=== PATIENT | male | born 1940 | race Caucasian/White ===

== ENCOUNTER 2023-07-26 15:42 | Inpatient (IN) | payer OTHER, SELFPAY ==
[2023-07-26] VITALS (23 sets, daily range): BP systolic 103–195; BP diastolic 50–89; BMI 22.7
--- NOTE | 2023-07-26 09:28 | W.PN.CARDCBS ---
Today's Communication / Plan
-
[facility] today
Impression / Plan
-
PCP: Stephen Tinoco MD
CDY: Angelo Bush MD
82 y/o, PMH sig for CAD w/prior LCx PCI (2008) and more recently Left PLB and RCA PCI/RASHEEDA x2 in October 2017, new PAF 03/2023, HTN, HLD, hypothyroidism, pulmonary fibrosis/COPD and longstanding tobacco abuse (currently 1/2ppd). At the time of PAF
diagnosis, he had been on asa/plavix which was then stopped for new start Eliquis. Recent echo 03/2023 with preserved LVSF, EF 60%, no WMA, mildly dilated LA, mild MR w/mod-sev MAC.
Pt woke Mon 07/24 in in the early hours to let the dog out and developed SSCP, no relief from SL NTG so EMS was called. He admits to a few weeks history of exertional chest pain while walking up steps at home as well as AYOUB. Brought to [facility] [place]-
hypertensive 190s, EKG SB w/PACs but no acute changes. HS troponin up to 125 and rising. Started on IV heparin and transferred for [facility] today.
IMPRESSION/PLAN:
CAD, Prior MD, LCx PCI (2008), Left PLB, RCA PCI/RASHEEDA x2 (10/2017)
Known occluded LAD with collaterals
NSTEMI
HS trop 125- repeat on arrival with CK
[facility] today
Anticipate short term triple therapy if PCI needed with asa/plavix/eliquis
continue lisinopril 5mg/daily, metoprolol xl 25/daily
echo in AM if not done at [facility] [place]
cardiac rehab
followup with Dr. Bush
PAF- newly diagnosed 03/2023
[id number], maintained on eliquis
resume post procedure when stable
HTN- continue metoprolol, lisinopril
monitor trends
HLD- check lipid profile in AM
continue crestor 40/d
Pulmonary Fibrosis/COPD-
currently on nocturnal O2- 2LNC, sometimes uses it during the day
managed per pulmonary- pt unsure of name of specialist
Tobacco abuse- must quit- cessation encouraged- will continue nicoderm.
Hypothyroidism- stable, continue levothyroxine
Left Carotid bruit- due for carotid u/s, managed per primary card
Progress Note - Child & Adolescent Psychiatrist
Subjective
Date of Service: July 26, 2023
Physical Exam
Physical Exam
AAOx3, MAEE 08/27
RRR S1 S2, distant HS, no murmurs
Decreased bibasilar, scattered rhonchi clears with cough, mild dyspnea at rest
soft abd, + bs
bilat extremities w/palpable distal pulses, no edema
[2023-07-26] MEDS: LOW STRENGTH ASPIRIN 243 MG PO (14:35)
[2023-07-26 14:45] LABS: Troponin I 0.344 ng/ml
--- NOTE | 2023-07-26 15:55 | ITS.CL.CATH ---
Craps Manager - Catheterization
Cardiac Catheterization
Procedure Report:
CARDIAC CATHETERIZATION REPORT
Date of Procedure: 07/26/2023
Referring: Guanako Jones DO
Indication: ACS/non-STEMI
HEMODYNAMIC DATA
AO: 181/74
LV: 181/17
LEFT VENTRICULOGRAPHY: Hyperdynamic left ventricular wall motion with EF 68%
CORONARY ANGIOGRAPHY
Dominance: Right
Left Main: Mild calcification without focal stenosis
LAD: The LAD is proximally occluded. There is left to left collateral retrograde filling from the apex up through the mid LAD. This is chronic and noted on prior catheterization at [facility] from 2018. There is a huge high rising
first diagonal branch which has a long patent bare metal (Du jimmie) stent in its proximal segment. This stent does not extend back to the LMCA.
Circumflex: There is a small ramus intermedius branch. There is a severe ostial circumflex stenosis and cannot exclude the possibility of associated thrombus although flow in the left circumflex is brisk suggesting the absence of thrombus. There
is 40% stenosis in the proximal circumflex spanning the takeoff of the medium sized OM1-the remotely placed stent at this segment appears slightly underexpanded. The remainder of the stented segment in the mid circumflex remains widely patent. OM
2 and OM 3 are small. There is another widely patent stent in the distal circumflex extending into the large low-lying OM 4.
RCA: 30% proximal RCA stenosis with a widely patent mid RCA stent and a widely patent distal RCA stent. The PDA and two medium sized posterolateral branches have mild luminal disease.
Closure Device: None-the procedure was performed via the right radial artery. The Jordan's test was normal prior to the procedure.
Radiation (mGy): 463
DAP (cm2.Gy): 39.8
Fluoroscopy time: 3.3 minutes
CONCLUSIONS
1: ACS/non-STEMI presentation (most recent troponin 0.337)
2: Systemic hypertension
3. Hyperdynamic left ventricular wall motion with EF 68%
4. Severe multivessel CAD as described. There is chronic occlusion of the LAD. There is what I suspect is new high-grade disease at the origin of the circumflex possibly associated with thrombus. This patient is not a candidate in my view for
elective or emergent cardiac surgery given his extensive comorbidities most important of which include oxygen dependent COPD/pulmonary fibrosis. I have reviewed the angiogram and the situation with Dr. Frederick of CT surgery who agrees. I think
his best option is stenting of the ostial LAD lesion. This will be a high risk procedure with no surgical backup. We will load with Brilinta (if affordable) or Plavix and proceed with PCI tomorrow.
Copy to: Angelo Bush MD (outpt sewer pipe offbearer), Gisela Garces MD(outpt primary physician)
Jace Bryant MD, [facility]
[2023-07-26 16:10] LABS: Total CK 77 U/L (55-170)
--- NOTE | 2023-07-26 16:10 | CM ---
Pricing on Brilinta 90 mg BID through patient's [facility] [facility], ID#[id number], $47 a month. I called patients [facility] and it is in stock
[2023-07-26] MEDS: NSS 1000 IV (17:30)
[2023-07-26] MEDS: CRESTOR 40 MG PO (17:30)
[2023-07-26] MEDS: BRILINTA 180 MG PO (17:30)
[2023-07-26] MEDS: NITRO-BID 0.5 INCH TOPICAL ×2 (18:08→23:33)
--- NOTE | 2023-07-26 18:18 | PTCARENOTE ---
Rec'd report from Kelly in the kiln labourer; Rec'd pt AAOx3 w/no c/o CP or SOB. Pt w/R radial band in place w/no signs or symptoms of bleeding or hematoma. VS stable. SpO2 on 2L O2 via NC 97% taken on pt's R hand where R band is present. Pt's son and
spouse at bedside. Pt w/NSS IV fluids infusing through patent R AC IV line. Admission assessment completed. Pt w/call almaraz in reach & no addtl needs at this time. Plan of care ongoing.
[2023-07-26] MEDS: LOPRESSOR 12.5 MG PO (20:18)
[2023-07-26 20:45] LABS: Hemoglobin 14.2 g/dL (13.0-18.0); Mean Corp Hgb Conc. 32.3 g/dL (33.0-37.0); Mean Corpuscular Hgb 31.6 pg (27.0-31.0); Mean Platelet Volume 10.8 fL (7.4-10.4); Platelet Count 157 10^3/uL (130-400); Red Blood Cell Count 4.49 10^6/uL (4.70-6.10); Red Cell Dist. Width 13.2 % (11.5-14.5); White Blood Cell Count 6.7 10^3/uL (4.8-10.8)
[2023-07-26 20:55] LABS: APTT 27.3 Sec (23.4-35.0)
[2023-07-26 21:00] LABS: Total CK 92 U/L (55-170)
[2023-07-26] MEDS: HEPARIN 25000 UNITS/250 ML IV (21:02)
[2023-07-26 21:13] LABS: Troponin I 0.309 ng/ml
--- NOTE | 2023-07-26 21:20 | PTCARENOTE ---
Assumed care of patient at change. Right radial TR band removed at approx 20:10 w/out difficulty. Dry dressing applied, and education provided on activity restrictions. Patient requires multiple reminders to avoid putting pressure on right wrist. No
hematoma noted at this time, and radial pulse positive. Patient AAOx3, GAKONA, and tele monitor shows SR-Sinus calvin. HR in the 50-60's at rest. Patient denies any chest pain, but does report 'it's hard to catch my breath'. Patient sating 96-99% on 2L.
Patient states he normally wears O2 at HS. Lungs decreased in the bases. Patient appears AYOUB and has a freq moist CYBER SYSTEMS ENGINEER cough. Instructed patient to perform deep breathing exercises. Patient requires standby assist w/ ambulation. Aware of POC,and to
remain NPO after midnight. IV Heparin gtt started at approx 21:00 and infusing at 9ml/hr. Call almaraz in reach.
[2023-07-26 21:21] LABS: CKMB 4.1 ng/ml (0.0-2.4)
[2023-07-27] VITALS (13 sets, daily range): BP systolic 129–154; BP diastolic 61–119; BMI 22.4
[2023-07-27 03:29] LABS: Hematocrit 41.4 % (39.0-52.0); Hemoglobin 13.3 g/dL (13.0-18.0); Mean Corp Hgb Conc. 32.1 g/dL (33.0-37.0); Mean Corpuscular Hgb 31.1 pg (27.0-31.0); Mean Platelet Volume 10.5 fL (7.4-10.4); Platelet Count 160 10^3/uL (130-400); Red Blood Cell Count 4.27 10^6/uL (4.70-6.10); Red Cell Dist. Width 13.2 % (11.5-14.5); White Blood Cell Count 7.5 10^3/uL (4.8-10.8)
[2023-07-27 03:36] LABS: APTT 36.5 Sec (23.4-35.0)
[2023-07-27 03:54] LABS: Troponin I 0.312 ng/ml
[2023-07-27 04:04] LABS: Blood Urea Nitrogen 21 mg/dl (9-20); Calcium 8.9 mg/dl (8.4-10.2); Carbon Dioxide 28 mmol/L (22-30); Chloride 106 mmol/L (98-107); Estimated Creatinine Clearance 76 ml/min; Glucose 91 mg/dl (70-99); HDL Cholesterol 58 mg/dl; LDL Cholesterol, Calculated 36 mg/dl; Potassium 4.3 mmol/L (3.5-5.1); Sodium 138 mmol/L (135-145); Total CK 94 U/L (55-170); Total Cholesterol 107 mg/dl (50-199); Triglyceride 69 mg/dl (10-149); Very Low Density Lipoprotein 13 mg/dl (0-30); eGFR > 60.00
[2023-07-27 04:28] LABS: CKMB 3.4 ng/ml (0.0-2.4)
[2023-07-27] MEDS: SYNTHROID 137 MCG PO (06:10)
[2023-07-27] MEDS: NITRO-BID 0.5 INCH TOPICAL (06:10)
[2023-07-27] MEDS: LOPRESSOR 12.5 MG PO ×2 (09:27→19:34)
[2023-07-27] MEDS: ZETIA 10 MG PO (09:27)
[2023-07-27] MEDS: LOW STRENGTH ASPIRIN 81 MG PO (09:27)
[2023-07-27] MEDS: ZESTRIL 5 MG PO (09:27)
[2023-07-27] MEDS: BRILINTA 90 MG PO (09:29)
--- NOTE | 2023-07-27 09:39 | PTCARENOTE ---
Rec'd pt AAOx3 from prev nsg shift. No c/o CP overnight or this AM. Pt w/Heparin IV drip infusing through patent L AC IV line. Pt w/nitro bid topical in place to RUE. Pt's R radial access site from yesterday w/dressing C/D/I-no signs or symptoms of
bleeding or hematoma. Pt's VS stable. Report given to Arnulfo in electronic lab technician for repeat PCI this AM. Pt voided and is in bed awaiting sweet pickle maker for procedure. Plan of care ongoing.
[2023-07-27 10:40] LABS: APTT 45.5 Sec (23.4-35.0)
[2023-07-27 11:44] LABS: ACT-LR - POC 331 Seconds (116-155)
[2023-07-27 11:46] LABS: ACT-LR - POC > 397 Seconds (116-155)
[2023-07-27 12:08] LABS: ACT-LR - POC 329 Seconds (116-155)
--- NOTE | 2023-07-27 12:29 | ITS.CL.ANGIO ---
Addendum entered and electronically signed by Jace Bryant MD 07/28/23 06:58:
Send copy of report to Gisela Garces MD
Original Note:
Construction Manager - Angioplasty
Angioplasty
Procedure Report:
CARDIAC CATHETERIZATION REPORT
Date of Procedure: 07/27/2023
Referring: Jace Bryant M.D.
INDICATION: Non-ST elevation myocardial infarction, ostial circumflex stenosis, no surgical options.
PROCEDURE:
1. Left coronary tree angiography.
2. Intravascular ultrasound.
3. Successful orbital atherectomy of the ostial circumflex.
4. Successful PCI of the circumflex into the left main coronary artery.
ACCESS:
7 Australian slender sheath in the right radial artery.
CATHETERS:
1. 7 Australian EBU 3.5 guiding catheter.
HEMODYNAMIC DATA
Weight (kg): 74.8
AO (s/d/x, mmHg): 125/70/92
LV (s/x mmHg): Not obtained.
LEFT VENTRICULOGRAPHY: Not performed.
CORONARY ANGIOGRAPHY
Dominance: Right.
Left Main: Normal size, trifurcating vessel. There are minor luminal irregularities.
LAD: Normal size vessel giving rise to 1 significant proximal diagonal. The proximal LAD is chronically totally occluded immediately after the origin of the diagonal. The ostial LAD leading into the diagonal is calcified and at least moderately
diseased. Patent stents are present in the proximal and mid diagonal.
Ramus: Small size vessel. There is no significant coronary disease in this minuscule vessel.
Circumflex: Large size, nondominant vessel giving rise to 2 significant marginals before terminating as a tiny left posterolateral branch. Patent stents are visible in the mid vessel into the distal vessel and second obtuse marginal. There is a
critical, densely calcified, 90% ostial circumflex lesion. There is a 60-70% lesion in the pLCx immediately proximal to the OM1 and the first LCx stent.
RCA: Not injected. Known to be a large size, dominant vessel with a significant posterolateral arcade. There is a 30% lesion in the proximal circumflex. There are patent stents in the mid vessel and proximal RPL.
INTERVENTION(S)
1. Successful intravascular ultrasound of the proximal LAD and left main coronary artery.
2. Successful orbital atherectomy of the ostial circumflex.
3. Successful IVUS guided PCI of the proximal circumflex and ostial circumflex lesions back into the left main coronary artery (Medtronic Bonnie Niobrara 3.5 x 30 RASHEEDA, postdilated with a 4.0 NC balloon throughout and a 4.5 NC balloon in the left main
coronary artery).
Narrative:
The decision was made to perform intracoronary imaging prior to intervention. The 7 Australian EBU 3.5 guiding catheter was advanced into the ascending aorta and seated in the left main coronary artery. A power turn flex wire was advanced into the
left circumflex. A BMW wire was advanced into the LAD then the diagonal. Additional heparin was given to obtain an ACT greater than 250 seconds. After crossing the lesion with a coronary wire, an IVUS catheter was advanced through the guiding
catheter and into the ostium of the artery. Ring down was performed once the imaging crystal was no longer inside of the guiding catheter. The IVUS catheter was advanced along the power turn flex wire into the left main. The catheter would not
progress into the left circumflex artery. We decided to image over the BMW wire into the diagonal and left main. This demonstrated significant, calcific atherosclerotic disease in the proximal LAD with dense calcium in the distal left main.
Given the severity of calcification and inability to pass an IVUS catheter into the circumflex, the decision was made to proceed with plaque modification and atherectomy. The Viper wire was advanced into the left circumflex without difficulty. The
power turn and BMW wires were removed. The CSI orbital atherectomy device was prepped on the back table and flushed with Viper slide. The device was loaded onto the Viper wire and brought up to the level of the catheter. An out of body test was
successful. The CSI device was advanced over the Viper wire up to the level of the coronary artery. Once the crown was positioned in place, orbital atherectomy was performed in the standard fashion with slow smooth passes. After each pass, the
patient was given nitroglycerin 100 mcg intracoronary. Brief angiography was performed to rule out dissection and perforation. The process was repeated for a total of 4 times. Ultimately, the crown passed through the densely calcified lesion
smoothly. The CSI device was withdrawn over the Viper wire.
The Power Turn Flex wire was advanced into the distal circumflex. The BMW wire was readvanced into the diagonal for protection. The Viper wire was removed. The calcified, 90% ostial circumflex lesion was predilated with a 3.0 x 15 noncompliant
balloon to 12 cyndi with good release. The 3.0 noncompliant balloon was withdrawn and a 3.5 x 15 noncompliant balloon was advanced. The lesion was predilated again to 12 cyndi. The noncompliant balloon was removed and a Medtronic Bonnie Niobrara 3.5 x
30 drug-eluting stent was advanced. Meticulous care was taken while positioning the stent, ensuring that both the ostial circumflex and proximal circumflex lesions would be covered and that the stent would extend into the left main at an
appropriate angle. The stent was deployed at 12 atmospheres. The stent balloon was removed. A new 3.5 x 12 noncompliant balloon was advanced into the stent and the stent was postdilated to 14 atmospheres in the distal margin and 16 cyndi in the
proximal margin including the left main. The prior IVUS film was reviewed for appropriate post dilation balloon sizing. The 3.5 x 12 noncompliant balloon was withdrawn and a 4.5 x 8 noncompliant balloon was advanced. The ostial circumflex and
left main portions of the stented segment were postdilated to 14 cyndi.
IVUS was repeated showing good stent apposition throughout the entire stented segment with some minor underexpansion in the proximal/ostial circumflex. The IVUS catheter was withdrawn and a 4.0 x 12 noncompliant balloon was advanced. The entire
circumflex section of the stent was postdilated to 14 cyndi. The ostial margin was postdilated to 20 cyndi. The noncompliant balloon was withdrawn.
Angiography was performed in orthogonal views, confirming good stent expansion and an excellent angiographic result. The power turn flex wire was withdrawn and redirected into the diagonal through the left main coronary artery stent struts with
only moderate difficulty. The BMW wire was withdrawn from the LAD and from behind the left main stent struts and redirected into the circumflex, demonstrating that both vessels were accessible percutaneously. The coronary wire was withdrawn and
the guide was disengaged from the artery. The catheter was removed over a standard J-wire.
Closure Device: Vascular band.
Radiation (mGy): 1542.16
DAP (cm2.Gy): 97.4466
Fluoroscopy time (minutes): 20.7
Sedation time (minutes): 93
CONCLUSIONS
1. Right dominant circulation with multiple prior PCI's in the mid RCA, RPL, mid/distal circumflex and large first diagonal, CIGAR BANDER HAND of the proximal LAD after the origin of the large diagonal, a 60-70% lesion in the proximal circumflex immediately
before the origin of OM1 and a densely calcified, 90% ostial circumflex lesion, now status post successful orbital atherectomy and IVUS guided PCI of both circumflex lesions into the left main coronary artery (Medtronic Bonnie Niobrara 3.5 x 38 RASHEEDA,
postdilated with a 4.0 NC balloon throughout and a 4.5 NC balloon in the left main coronary artery) with reduction in both stenoses to 0%, maintaining ZACH-3 flow in the circumflex as well as in the jailed large diagonal.
RECOMMENDATIONS:
1. Expectant management after cardiac catheterization via right radial approach.
2. Limited weight bearing on the right wrist for one week.
3. Convert from ticagrelor to clopidogrel tomorrow morning.
4. Triple therapy with aspirin, apixaban and clopidogrel for 1 month, followed by discontinuation of aspirin.
5. Guideline directed medical therapy as hemodynamics will tolerate.
Copy to: Angelo Bush M.D.
Guanako Benites DO, FACC, FACP
--- NOTE | 2023-07-27 13:08 | CM ---
Reviewed chart. Met with MrPatti and Mrs. Costa and son to review discharge plans. He states prior to admission he resides with his spouse in a two story home. He states he has eleven steps to get to his bedroom/full bathroom. He states he has a
powder room on the first floor. He states prior to admission he was independent with ambulation and adls. He states he has a prescription plan and [a]list games-[employer]. Telephone call to [employer] ([phone]) His co-pay for Brilinta 90 mg po bid would be
$15.00 a month. His Eliquis 5 mg po bid would also be $15.00 a month. Placed the one month free coupon for Brilinta in his red discharge folder. Medical work-up in progress. The discharge plan is to return home with his spouse when medically
stable.
[2023-07-27] MEDS: NITRO-BID TOPICAL (13:14)
--- NOTE | 2023-07-27 13:29 | PTCARENOTE ---
Rec'd report from Kelly in the chemical laboratory chief at 1245. Pt rec'd back in his rm at 1255. Pt w/ R radial band intact w/no signs or symptoms of bleeding or hematoma. SpO2 92% on RA & pt appears dyspneic at rest so O2 2L via NC applied for comfort. O2 Sat
improved to 96%. Pt w/spouse & son at bedside. This RN reiterated activity restrictions & plan of bo w/pt & family. Pt w/call almaraz within reach & plan of care ongoing.
[2023-07-27] MEDS: CRESTOR 40 MG PO (18:22)
[2023-07-27] MEDS: ELIQUIS 5 MG PO (19:34)
[2023-07-27] MEDS: SYMBICORT 160/4.5 MCG INHALER 2 PUFF INH (19:58)
--- NOTE | 2023-07-27 21:12 | PTCARENOTE ---
Asuumed care at 1900. Patient AO x3, right radial dressing dry and intact. A-fib on tele initially at the start of my shift but now is SB with 2 second pauses HR 50-60's. Patient sleeping easily arousable, 2 liters NC, POX 98-99%. Urinal and call
almaraz in reach
--- NOTE | 2023-07-27 22:09 | PTCARENOTE ---
EKG completed and placed on chart.
[2023-07-28 03:30] VITALS: BP 143/55
[2023-07-28 04:31] LABS: Hematocrit 40.6 % (39.0-52.0); Hemoglobin 13.4 g/dL (13.0-18.0); Mean Corpuscular Hgb 31.3 pg (27.0-31.0); Mean Corpuscular Volume 94.9 fL (80.0-94.0); Mean Platelet Volume 11.3 fL (7.4-10.4); Platelet Count 166 10^3/uL (130-400); Red Blood Cell Count 4.28 10^6/uL (4.70-6.10); Red Cell Dist. Width 13.1 % (11.5-14.5); White Blood Cell Count 7.7 10^3/uL (4.8-10.8)
[2023-07-28 04:49] LABS: Blood Urea Nitrogen 25 mg/dl (9-20); Carbon Dioxide 28 mmol/L (22-30); Chloride 103 mmol/L (98-107); Estimated Creatinine Clearance 76 ml/min; Glucose 99 mg/dl (70-99); Potassium 4.2 mmol/L (3.5-5.1); Sodium 138 mmol/L (135-145); eGFR > 60.00
[2023-07-28] MEDS: SYNTHROID 137 MCG PO (06:06)
--- NOTE | 2023-07-28 07:11 | W.PN.UPDATE ---
Update Note
Progress Note Update
No CP
Feels baseline
VSS
ECG no acute changes
He is a bit bradycardic and has multiple pauses of 2.1 sec. Will reduce metoprolol succinate from 12.5 bid to 12.5 qd
Triple therapy for one week then stop ASA and treat with only plavix and Eliquis [address] Angelo Bush and Dr Gisela Garces
I reinforced extreme importance of compliance with meds gila Plavix and Eliquis
Home today
[2023-07-28 07:12] VITALS: BP 122/52
[2023-07-28] MEDS: SYMBICORT 160/4.5 MCG INHALER INH (07:28)
[2023-07-28] MEDS: TOPROL XL 12.5 MG PO (08:56)
[2023-07-28] MEDS: ZETIA 10 MG PO (08:57)
[2023-07-28] MEDS: ELIQUIS 5 MG PO (08:57)
[2023-07-28] MEDS: LOW STRENGTH ASPIRIN 81 MG PO (08:57)
[2023-07-28] MEDS: ZESTRIL 5 MG PO (08:57)
[2023-07-28] MEDS: PROTONIX 40 MG PO (08:57)
[2023-07-28] MEDS: PLAVIX 600 MG PO (08:57)
--- NOTE | 2023-07-28 09:57 | W.DS.TRANS ---
DC Summary - Product Support Manager
-
Discharge Instructions:
Sleep Apnea Risk High
Discharge Diagnosis/Procedures NSTEMI, Angioplasty and athrectomy with stent to
left circumflex artery
Diet Low Cholesterol
Driving Restrictions No driving for 24 hours
Other Services Cardiac Rehab
Instructions:
Stand-Alone Forms: DC Instructions- Cath/EP Lab
Changes to Home Medications: Yes
Discharge Medications:
DC Medications w/original date entered in [employer]
apixaban 5 mg tablet (Eliquis) 5 mg PO BID 07/26/23
ezetimibe 10 mg tablet 10 mg PO DAILY 07/26/23
levothyroxine 137 mcg tablet 137 mcg PO DAILY 07/26/23
lisinopril 5 mg tablet 5 mg PO DAILY 07/26/23
multivitamin 1 tab PO DAILY 07/26/23
omega 2-ack-ggg-fish oil 1,000 mg (120 mg-180 mg) capsule (Fish Oil) 1 cap PO DAILY 07/26/23
rosuvastatin 40 mg tablet 40 mg PO QPM 07/26/23
aspirin 81 mg chewable tablet (Children's Aspirin) 81 mg PO DAILY #1 tab 07/28/23
clopidogrel 75 mg tablet 75 mg PO DAILY #90 tabs 07/28/23
metoprolol succinate 25 mg tablet,extended release 24 hr 12.5 mg (1/2 x 25 mg) PO DAILY #90 tabs 07/28/23
nitroglycerin 0.4 mg sublingual tablet 0.4 mg sublingual [id number] PRN chest pain #25 tabs 07/28/23
pantoprazole 40 mg tablet,delayed release 40 mg PO DAILY #30 tabs 07/28/23
Home Medication Changes
new to protonix, plavix, metoprolol, nitro sl, ASA
Pending Results: No
[2023-07-28 10:52] VITALS: BP 124/51
--- NOTE | 2023-07-28 12:06 | PTCARENOTE ---
Pt seen by Lizette Erickson NP adn . Telemetry and IV device removed. Discharge instructions reviewed with pt and his regarding activity and driving guidelines, wound care, medications and their possible side effects, reporting cares and
concerns and follow up appt's. Good understanding verbalized. pt escorted out via wheelchair and discharged to home.
== END 2023-07-28 11:35 | disposition home or self-care (01) | DRG 322 ==
LOC: IVU 15:42
PROVIDERS: Internal Medicine Cardiovascular Disease; Nurse Practitioner; ADMITTING PHYSICIAN Internal Medicine Cardiovascular Disease
PROC: B2151ZZ Fluoroscopy of Left Heart using Low Osmolar Contrast (ICD-10-PCS; 2023-07-26)
PROC: B2111ZZ Fluoroscopy of Multiple Coronary Arteries using Low Osmolar Contrast (ICD-10-PCS; 2023-07-26)
PROC: 4A023N7 Measurement of Cardiac Sampling and Pressure, Left Heart, Percutaneous Approach (ICD-10-PCS; 2023-07-26)
PROC: 027034Z Dilation of Coronary Artery, One Artery with Drug-eluting Intraluminal Device, Percutaneous Approach (ICD-10-PCS; 2023-07-27)
PROC: B241ZZ3 Ultrasonography of Multiple Coronary Arteries, Intravascular (ICD-10-PCS; 2023-07-27)
PROC: 02C03Z7 Extirpation of Matter from Coronary Artery, One Artery, Orbital Atherectomy Technique, Percutaneous Approach (ICD-10-PCS; 2023-07-27)
DX: I21.4 Non-ST elevation (NSTEMI) myocardial infarction (principal); I25.10 Atherosclerotic heart disease of native coronary artery without angina pectoris; I10 Essential (primary) hypertension; J44.9 Chronic obstructive pulmonary disease, unspecified; J84.10 Pulmonary fibrosis, unspecified; E03.9 Hypothyroidism, unspecified; E78.5 Hyperlipidemia, unspecified; I48.0 Paroxysmal atrial fibrillation; F17.200 Nicotine dependence, unspecified, uncomplicated; Z99.81 Dependence on supplemental oxygen; Z79.82 Long term (current) use of aspirin; Z79.02 Long term (current) use of antithrombotics/antiplatelets; Z79.890 Hormone replacement therapy; I25.2 Old myocardial infarction
CPT/HCPCS: 80048; 80061; 82550; 82553; 84484; 85027; 85347; 85730; 92978; 93005; 93458; 94640; C1724; C1725; C1753; C1769; C1874; C1887; C1894; C9602; Q9967

== ENCOUNTER → 2023-11-07 07:18 | Outpatient (REF) | payer OTHER, SELFPAY | LOC: RAD 07:18 | PROVIDERS: ATTENDING PHYSICIAN Internal Medicine Cardiovascular Disease; FAMILY PHYSICIAN Student in an Organized Health Care Education/Training Program | DX: R09.89 Other specified symptoms and signs involving the circulatory and respiratory systems (principal) | CPT/HCPCS: 93880 ==

== ENCOUNTER 2024-03-09 16:17 | Inpatient (IN) | payer OTHER, SELFPAY ==
[2024-03-09] VITALS (13 sets, daily range): BP systolic 105–139; BP diastolic 40–96; BMI 24.6; BMI 26.8
[2024-03-09 13:52] LABS: % Basophils 0.4 % (0-2); % Immature Granulocytes 0.1 % (0-0.5); % Lymphocytes 23.6 % (20.5-51.1); % Monocytes 12.4 % (1.7-9.3); % Neutrophils 59.5 % (42.2-75.2); Absolute Eosinophils 0.3 10^3/uL (0-0.7); Absolute Lymphocytes 1.9 10^3/uL (1.2-3.4); Absolute Neutrophils 4.9 10^3/uL (1.4-6.5); Hemoglobin 10.8 g/dL (13.0-18.0); Mean Corp Hgb Conc. 31.8 g/dL (33.0-37.0); Mean Corpuscular Hgb 31.9 pg (27.0-31.0); Mean Corpuscular Volume 100.3 fL (80.0-94.0); Mean Platelet Volume 10.9 fL (7.4-10.4); Nucleated Red Blood Cells % 0 % (-); Platelet Count 180 10^3/uL (130-400); Red Blood Cell Count 3.39 10^6/uL (4.70-6.10); White Blood Cell Count 8.2 10^3/uL (4.8-10.8)
[2024-03-09 13:53] LABS: INR 1.37; PT 17.1 Sec (11.4-14.6)
[2024-03-09 14:01] LABS: ALT (SGPT) 62 U/L (0-50); AST (SGOT) 64 U/L (17-59); Albumin 3.5 g/dl (3.5-5.0); Alkaline Phosphatase 118 U/L (38-126); Blood Urea Nitrogen 23 mg/dl (9-20); Calcium 8.4 mg/dl (8.4-10.2); Carbon Dioxide 34 mmol/L (22-30); Chloride 99 mmol/L (98-107); Estimated Creatinine Clearance 56 ml/min; Glucose 104 mg/dl (70-99); Potassium 4.2 mmol/L (3.5-5.1); Sodium 140 mmol/L (135-145); Total Bilirubin 0.4 mg/dl (0.2-1.3); eGFR > 60.00
[2024-03-09 14:02] LABS: Lactic Acid 0.9 mmol/L (0.7-2.0)
--- NOTE | 2024-03-09 14:13 | ED.GENMED ---
History of Present Illness
General
Chief Complaint: Breathing Problem
Time Seen by Provider: 03/09/24 14:06
History of Present Illness
History of Present Illness:
83-year-old male with history of A-fib and COPD presents to the emergency department for evaluation of productive cough, general weakness, dizziness, and chills for the past week. Chronically on 2 L nasal cannula, has required 5 L nasal cannula to
improve his work of breathing. Describes purulent productive sputum. Does have mild chest discomfort but 1 he increase his oxygen the chest discomfort resolved. No leg swelling. No ill contacts at home.
Review of Systems
Review of Systems
Allergies reviewed?: Yes
All Other Systems: ROS reviewed and negative except as documented in HPI and ROS
Phy Exam
Physical Exam
Physical Exam:
GEN: Well appearing, NAD, WDWN
Eyes: PERRLA, EOMs intact, no scleral icterus
HENT: NCAT, oral mucosa moist
Lungs: Tachypneic with pursed lip breathing, diminished bibasilar breath sounds, no gross rhonchi or rales
Cardiac: RRR
Abdomen: S, NT, ND, NABS, no masses or hepatosplenomegaly
Neuro: AO x 3
MSK: No gross deformity or ecchymosis. No edema. No digital clubbing
Skin: No rashes, petechiae. Normal color, no pallor or jaundice.
Psych: Calm, cooperative, proper hygiene
Scores
Heart Failure Risk
Heart Failure Risk Score: Not Applicable
Course
Orders/Labs/Results
Orders:
Orders
03/09/24 13:05
Electrocardiogram (*1) Urgent
Reason for Study: Shortness of Breath
EKG- Treatment ONCE
03/09/24 13:31
CR Chest - 2 Views Stat
Comment: 5L O2
Reason For Exam: cough
03/09/24 13:34
Complete Blood Count/With Diff Urgent
Comprehensive Metabolic Panel Urgent
Ferritin Urgent
Comment: ADD ON
Folate Urgent
Comment: ADD ON
Iron Urgent
Lactic Acid Stat
Prothrombin Time Urgent
Reticulocyte Count Urgent
Total Iron Binding Urgent
Vitamin B12 Urgent
Comment: ADD ON
03/09/24 14:17
Azithromycin 500 mg/250 ml [Zithromax Infusion] 500 mg in 250 ml IV NOW
CefTRIAXone [Rocephin] 1,000 mg IV NOW STA
03/09/24 15:09
Dexamethasone Sod Phosphate [Decadron] 10 mg IV NOW STA
03/09/24 15:20
COVID-19 Antigen Routine
Source: Nasal Swab
Procalcitonin Routine
PCT Algorithmm Indication: Respiratory
Influenza A+B Rapid Molecular Routine
AP[place] Source: Nasal Swab
Specimen Description:
03/09/24 15:21
Dexamethasone Pf [Decadron] 10 mg .ROUTE .STK-MED ONE
03/09/24 15:25
Ipratropium/Albuterol Sulfate [Duoneb] 3 ml INH R NOW ONE
03/09/24 15:26
Admit/Transfer Patient As Directed
Co-Sign Provider:
Level of Care: Inpatient admission
Assign to:: Medical/Surgical
Physician / Group: Batsheva
Diagnosis: COPD exacerbation
Reason for Hospitalization: Oxygen, steroids, Nebs, etc
Expected length of stay greater than two midnights?: Yes
ELOS- Estimated Length of Stay in days: 2
I certify the patient meets the requirements for IP care: Yes
PRN Pain Medication Management As Directed
May give lesser potent ordered pain med per pt: Yes
preference::
Protocol:: Medication orders for pain may be administered in a
manner that supports deferring to patient preference
when the pt is:
- Requesting an ordered lesser potent pain medication.
Least to most potent pain medications are defined
as: acetaminophen < NSAID < tramadol < opioids
(morphine, oxycodone, hydromorphone).
- Requesting a lesser dose of the same medication IF
ORDERED.
- Requesting a less intrusive route of administration
if both routes are prescribed by the provider (PO <
IV).
03/09/24 15:29
Code Status As Directed
Resuscitation Status: Do not resuscitate
Reached after discussion with pt or family/Healthcare POA: Yes
DNR Bracelet Application ONCE
03/09/24 15:40
Add On- LAB Routine
Tests Added?: iron, ferritin, TIBC, retic, B12, folate
03/09/24 18:27
Acetaminophen [Tylenol] 650 mg PO Q6HPRN PRN
Ipratropium/Albuterol Sulfate [Duoneb] 3 ml INH R Q4HPRN PRN
Nitroglycerin Sublingual [Nitrostat (Sublingual)] 0.4 mg SL [id number] PRN
03/09/24 18:27
Sputum Culture [Respiratory Culture/Gram Stain] Routine
AP[place]IA Source: Sputum
Specimen Description:
Activity As Directed
Activity Level: Ambulate
Acapella [Rx Pep / Acapela] [RESP] Routine
Incentive Spirometry [Rx Incentive Spirometry] [RESP] Routine
Frequency: q1h while awake
03/09/24 20:00
Apixaban [Eliquis] 5 mg PO BID
Fluticasone/Salmeterol 115/21 [Advair Hfa 115/21 Mcg Inhaler] 2 puff INH R BID
03/10/24 06:00
CBC/With Diff [Complete Blood Count/With Diff] IN AM
CMP [Comprehensive Metabolic Panel] IN AM
Levothyroxine [Synthroid] 150 mcg PO DAILY @ 0600
03/10/24 08:00
Aspirin Chewable [Low Strength Aspirin] 81 mg PO DAILY
Azithromycin [Zithromax] 500 mg PO DAILY
Ezetimibe [Zetia] 10 mg PO DAILY
Lisinopril [Zestril] 5 mg PO DAILY
Metoprolol Xl [Toprol Xl] 12.5 mg PO DAILY
Multivitamin [Theragran] 1 tablet PO DAILY
Pantoprazole [Protonix] 40 mg PO DAILY
Prednisone [Deltasone] 40 mg PO DAILY
Rosuvastatin Calcium [Crestor] 40 mg PO DAILY
Abnormal Lab Results
03/09/24
13:34
RBC 3.39 L 10^6/uL
(4.70-6.10)
Hgb 10.8 L g/dL
(13.0-18.0)
Hct 34.0 L %
(39.0-52.0)
MCV 100.3 H fL
(80.0-94.0)
MCH 31.9 H pg
(27.0-31.0)
MCHC 31.8 L g/dL
(33.0-37.0)
MPV 10.9 H fL
(7.4-10.4)
Absolute Monos (auto) 1.0 H 10^3/uL
(0.1-0.6)
Monocytes % 12.4 H %
(1.7-9.3)
PT 17.1 H Sec
(11.4-14.6)
Carbon Dioxide 34 H mmol/L
(22-30)
BUN 23 H mg/dl
(9-20)
Glucose 104 H mg/dl
(70-99)
Iron 29 L ug/dl
(49-181)
TIBC 221 L ug/dl
(261-462)
% Saturation 13 L %
(20-50)
AST 64 H U/L
(17-59)
ALT 62 H U/L
(0-50)
Total Protein 6.0 L g/dl
(6.3-8.2)
Folate > 20.0 H ng/ml
(2.76-20)
03/09/24 13:34
03/09/24 13:34
Vital Signs
Initial and Last Documented VS:
Initial Vital Signs
Temp Pulse Resp BP Pulse Ox
98.1 F 68 24 105/43 91
03/09/24 12:49 03/09/24 12:49 03/09/24 12:49 03/09/24 12:49 03/09/24 12:49
Last Documented Vital Signs
Temp Pulse Resp BP Pulse Ox
97.9 F 83 18 135/63 95
03/09/24 18:43 03/09/24 19:37 03/09/24 19:37 03/09/24 18:43 03/09/24 19:37
MDM/Problems Addressed
MDM/Problems Addressed:
83-year-old male presents with productive cough and dizziness for the past week requiring increased home oxygen use. Although chest x-ray is clear, the purulent sputum is concerning for infectious etiology. He is on anticoagulants thus do not
suspect pulmonary embolism. Given his advanced age and continued work of breathing coupled with need for higher volume of supplemental oxygen will admit for IV antibiotics
*Critical Care Note
Total Time (30-74mins, 75-104mins- exclusive of procedures): Not Applicable
ED Attending Note
-
Portions of this chart may have been created with voice recognition software.� Occasional wrong word or��sound alike� substitutions may have occurred due to the inherent limitations of voice recognition software.
Discharge Plan
Departure
Patient Disposition: Admit
Date of Disposition: 03/09/24
Time of Disposition: 14:45
Admit to: Med/Surg
Presentation/result/management discussed w/ accepting MD/DO: Hospitalist
Discharge Problem:
Pneumonia
Interventions
Interventions:
*Risk Screen - Suicide Last Done: 03/09/24 12:49
*General Assessment Last Done: 03/09/24 12:49
*Neglect/Abuse Screening Last Done: 03/09/24 13:11
ED- Fall Risk Assessment Last Done: 03/09/24 13:11
*ED COVID-19 Vaccine History Last Done: 03/09/24 12:49
*Nursing Disposition Last Done: 03/09/24 16:34
ED- Pulmonary Assessment Last Done: 03/09/24 13:11
ED- Cardiac Assessment Last Done: 03/09/24 13:11
Discharge Date and Time
Discharge Date/Time: 03/09/24 18:22
[2024-03-09] MEDS: ROCEPHIN 1000 MG IV (14:20)
[2024-03-09] MEDS: ZITHROMAX INFUSION 250 IV (14:25)
[2024-03-09] MEDS: DECADRON 10 MG IV (15:22)
--- NOTE | 2024-03-09 15:33 | HPS.HSE ---
Family Physician
-
Family Physician: Concetta Daniel
Chief Complaint
-
Shortness of breath, cough
History of Present Illness
83-year-old male from [facility] here with complaints of 1 weeks worth of cough, dyspnea exertion, weakness, chills.
Denies sick contacts. Lives with his at home. At baseline uses nocturnal oxygen but for the past week since he has been feeling ill he started wearing oxygen during the day as well.
Cough productive, brown sputum.
Medical History
Past Medical History
Past Medical History: Reports Other
Additional Past Medical History:
COPD on nocturnal oxygen
Pulmonary fibrosis
Hypothyroidism
Hyperlipidemia
CAD
Paroxysmal atrial fibrillation
Essential hypertension
BPH
Carotid stenosis
Past Surgical History: Reports Other
Additional Past Surgical History:
Hernia repair
Social History
Tobacco: Former Smoker
Alcohol: Former
Drug: None
Personal:
Living: With Family
Employment: Not Employed
Family History
Family History: Not pertinent
Allergies / Home Medications
Allergies reflects when Allergies were last updated in [employer].
Home Medications with original date entered in [employer]
Allergy/Medication List:
Allergies
Allergy/AdvReac Type Severity Reaction Status Date / Time
No Known Allergies Allergy Verified 03/09/24 12:51
Home Medications
apixaban 5 mg tablet (Eliquis) 5 mg PO BID 07/26/23
ezetimibe 10 mg tablet 10 mg PO DAILY 07/26/23
lisinopril 5 mg tablet 5 mg PO DAILY 07/26/23
multivitamin 1 tab PO DAILY 07/26/23
omega 9-wpr-lju-fish oil 1,000 mg (120 mg-180 mg) capsule (Fish Oil) 1 cap PO DAILY 07/26/23
rosuvastatin 40 mg tablet 40 mg PO DAILY 07/26/23
aspirin 81 mg chewable tablet (Children's Aspirin) 81 mg PO DAILY #1 tab 07/28/23
metoprolol succinate 25 mg tablet,extended release 24 hr 12.5 mg (1/2 x 25 mg) PO DAILY #90 tabs 07/28/23
nitroglycerin 0.4 mg sublingual tablet 0.4 mg sublingual [id number] PRN chest pain #25 tabs 07/28/23
pantoprazole 40 mg tablet,delayed release 40 mg PO DAILY #30 tabs 07/28/23
acetaminophen 325 mg tablet (Tylenol) 650 mg PO Q6HPRN PRN mild pain 03/09/24
fluticasone fur. 100 mcg-umeclid 62.5 mcg-vilant 25 mcg inhalat.powder (Trelegy Ellipta) 1 inh inhalation R DAILY 03/09/24
levothyroxine 150 mcg tablet (Synthroid) 150 mcg PO DAILY 03/09/24
Review of Systems
-
History Source: Patient and Family
A 12 point ROS was completed and negative except as noted: Yes
Respiratory: Reports Cough and Trouble Breathing
Physical Exam
Vital Signs
Vital Signs
Temp Pulse Resp BP Pulse Ox
98.1 F 66 18 116/53 99
03/09/24 12:49 03/09/24 15:15 03/09/24 15:15 03/09/24 15:00 03/09/24 15:15
Physical Exam
General: Well Developed, Well Nourished, No Apparent Distress and Comfortable
HEENT: NormoCephalic, Anicteric and Moist mucous membranes
Respiratory: Rhonchi and Decreased Breath Sounds
Cardiac: S1/S2 and Regular Rhythm
GI: Soft, Non Tender and Non Distended
Genito-urinary: Deferred by me
Musculoskeletal: No Clubbing, No Cyanosis and No Edema
Skin: Warm and Dry
Neuro: AO x 3
Hematologic/Lymphatic: No Lymphadenopathy
Psych: Calm
Laboratory Results
-
03/09/24 13:34
03/09/24 13:34
Laboratory Results
PT 17.1 Sec (11.4-14.6) H 03/09/24 13:34
INR 1.37 03/09/24 13:34
Lactic Acid 0.9 mmol/L (0.7-2.0) 03/09/24 13:34
Total Bilirubin 0.4 mg/dl (0.2-1.3) 03/09/24 13:34
AST 64 U/L (17-59) H 03/09/24 13:34
ALT 62 U/L (0-50) H 03/09/24 13:34
Alkaline Phosphatase 118 U/L (38-126) 03/09/24 13:34
Impression/Plan
-
Acute on chronic hypoxic respiratory failure -due to COPD exacerbation. Baseline uses 2 L nasal cannula oxygen, currently on 5 L in the emergency room. Admit to [facility].
Acute COPD exacerbation -start systemic steroids, continue oxygen, continue inhalers. Clinically doubt pneumonia. Check procalcitonin. He uses Trelegy at home, as needed albuterol. He sees a adjustment examiner physician dietetic assistant in [place], wants
to change and start coming to [facility].
Check COVID, check influenza.
Elevated transaminases -unclear etiology or chronicity. Recheck labs in the morning.
Macrocytic anemia -unclear etiology. Will check anemia labs. Hemoglobin 10.8, previous hemoglobin was normal in July of this year.
CAD -multiple prior stents. Continue medical therapy.
Paroxysmal atrial fibrillation -continue Eliquis.
Essential hypertension -stable.
Hyperlipidemia -rosuvastatin, Zetia.
Hypothyroidism -continue levothyroxine.
Pulm fibrosis
DNR -confirmed with the patient/.
[2024-03-09] MEDS: DUONEB 3 ML INH (15:58)
[2024-03-09 16:06] LABS: Procalcitonin 0.09 ng/ml (0.0-0.25)
[2024-03-09 16:07] LABS: COVID-19 Antigen Negative (Negative)
[2024-03-09 16:35] LABS: Iron 29 ug/dl (49-181)
[2024-03-09 16:44] LABS: Percent Saturation 13 % (20-50); Total Iron Binding Capacity 221 ug/dl (261-462)
[2024-03-09 17:34] LABS: Vitamin B12 644 pg/ml (239-931)
[2024-03-09 19:10] LABS: Folate > 20.0 ng/ml (2.76-20)
[2024-03-09] MEDS: ADVAIR HFA 115/21 MCG INHALER 2 PUFF INH (19:31)
[2024-03-09] MEDS: ELIQUIS 5 MG PO (21:20)
[2024-03-10] MEDS: SYNTHROID 150 MCG PO (05:30)
[2024-03-10 06:37] LABS: % Basophils 0.1 % (0-2); % Immature Granulocytes 0.3 % (0-0.5); % Lymphocytes 13.7 % (20.5-51.1); % Neutrophils 81.9 % (42.2-75.2); Absolute Lymphocytes 0.9 10^3/uL (1.2-3.4); Absolute Monocytes 0.3 10^3/uL (0.1-0.6); Absolute Neutrophils 5.5 10^3/uL (1.4-6.5); Hematocrit 37.3 % (39.0-52.0); Hemoglobin 11.4 g/dL (13.0-18.0); Mean Corp Hgb Conc. 30.6 g/dL (33.0-37.0); Mean Corpuscular Hgb 31.1 pg (27.0-31.0); Mean Corpuscular Volume 101.6 fL (80.0-94.0); Mean Platelet Volume 10.9 fL (7.4-10.4); Nucleated Red Blood Cells % 0 % (-); Platelet Count 198 10^3/uL (130-400); Red Blood Cell Count 3.67 10^6/uL (4.70-6.10); Red Cell Dist. Width 12.9 % (11.5-14.5); White Blood Cell Count 6.8 10^3/uL (4.8-10.8)
[2024-03-10 07:55] VITALS: BP 131/59
[2024-03-10] MEDS: PROTONIX 40 MG PO (08:13)
[2024-03-10] MEDS: DELTASONE 40 MG PO (08:13)
[2024-03-10] MEDS: ZETIA 10 MG PO (08:13)
[2024-03-10] MEDS: ZESTRIL 5 MG PO (08:14)
[2024-03-10] MEDS: LOW STRENGTH ASPIRIN 81 MG PO (08:14)
[2024-03-10] MEDS: ELIQUIS 5 MG PO ×2 (08:14→21:48)
[2024-03-10] MEDS: ZITHROMAX 500 MG PO (08:14)
[2024-03-10] MEDS: TOPROL XL 12.5 MG PO (08:14)
[2024-03-10] MEDS: THERAGRAN 1 TABLET PO (08:14)
[2024-03-10] MEDS: CRESTOR 40 MG PO (08:14)
[2024-03-10 08:23] LABS: ALT (SGPT) 60 U/L (0-50); AST (SGOT) 47 U/L (17-59); Albumin 3.3 g/dl (3.5-5.0); Alkaline Phosphatase 105 U/L (38-126); Blood Urea Nitrogen 21 mg/dl (9-20); Calcium 8.5 mg/dl (8.4-10.2); Carbon Dioxide 37 mmol/L (22-30); Chloride 99 mmol/L (98-107); Estimated Creatinine Clearance 60 ml/min; Glucose 140 mg/dl (70-99); Potassium 5.2 mmol/L (3.5-5.1); Sodium 140 mmol/L (135-145); Total Bilirubin 0.3 mg/dl (0.2-1.3); Total Protein 5.8 g/dl (6.3-8.2); eGFR > 60.00
[2024-03-10] MEDS: ADVAIR HFA 115/21 MCG INHALER 2 PUFF INH ×2 (09:11→19:56)
--- NOTE | 2024-03-10 10:27 | W.PN.HOSP.TC ---
Addendum entered and electronically signed by Kevin Herman DO 03/10/24 14:04:
Updated patient's son on the phone. All questions answered.
Son states that his father continues to smoke unfortunately. Will need to work on this moving forward.
Son states that at baseline he uses 3 L of oxygen at home. Not always compliant with it.
Original Note:
Today's Communication/Plan
-
Continue current care
Wean oxygen as able
Assessment / Plan
Assessment / Plan
Gen-AAOx3, NAD
HEENT-NC, AT, anicteric, clear oral mm
Neck-supple
CV-reg, no M, +S1/S2
Lungs-decreased breath sounds bilaterally
Abd-soft, NT, ND
Ext-no edema
Musculoskeletal-no cyanosis, clubbing
Skin-warm and dry
Neuro-grossly non-focal
Psych-calm, cooperative
Acute on chronic hypoxic respiratory failure -due to COPD exacerbation. Baseline uses 2 L nasal cannula oxygen. Required 5 L of nasal cannula on admission, turned down this morning to 3 L by respiratory but pulse ox dropped to 88%. Now on 4 L and
pulse ox 92%. Discussed with nursing. Wean down slowly as able.
Acute COPD exacerbation -continue systemic steroids, azithromycin, oxygen, inhalers. No evidence of pneumonia clinically. He uses Trelegy at home, as needed albuterol. He sees a napper grinder physician virtual assistant for advertisers in [place], wants to change and
start coming to [facility].
COVID and influenza negative.
Has had 2 doses of azithromycin so far, will give a total of 3 doses.
Hyperkalemia -hold lisinopril. Give a dose of Lokelma. Recheck labs in the morning.
Elevated transaminases -unclear etiology or chronicity. Labs improving today.
Macrocytic anemia -unclear etiology. Hemoglobin 10.8, previous hemoglobin was normal in July of this year. B12 and folic acid normal. Iron panel not consistent with iron deficiency.
CAD -multiple prior stents. Continue medical therapy.
Paroxysmal atrial fibrillation -continue Eliquis.
Essential hypertension -stable.
Hyperlipidemia -rosuvastatin, Zetia.
Hypothyroidism -continue levothyroxine.
Pulm fibrosis
DNR -confirmed with the patient/.
Anticipated Discharge: 24 - 48 hours
Subjective/Interval History
-
Date of Service: March 10, 2024
Patient seen and examined. Feeling better overall. Less short of breath.
Objective Data
-
Labs:
Laboratory Results
03/10/24 03/10/24
05:56 07:47
WBC 6.8
Hgb 11.4 L
Hct 37.3 L
Plt Count 198
Sodium Cancelled 140
Potassium Cancelled 5.2 H
Chloride Cancelled 99
Carbon Dioxide Cancelled 37 H
BUN Cancelled 21 H
Creatinine Cancelled 0.9
Glucose Cancelled 140 H
Calcium Cancelled 8.5
Total Bilirubin Cancelled 0.3
AST Cancelled 47
ALT Cancelled 60 H
Alkaline Phosphatase Cancelled 105
Vital Signs:
Vital Signs
Temp Pulse Resp BP Pulse Ox
97.4 F 45 16 131/79 92
03/10/24 07:55 03/10/24 09:15 03/10/24 09:15 03/10/24 08:14 03/10/24 10:15
I&O
03/09/24 03/10/24 03/11/24
06:59 06:59 06:59
Output Total 500 / 500
Balance -500 / -500
Review of Systems
-
History Source: Patient
All other systems: Reviewed and negative
--- NOTE | 2024-03-10 11:35 | CM ---
Patient seen bedside, initial assessment completed. Patient resides in a two story home with his , one step to enter. Patient goes up full flight of steps to bedroom. Patient denies use of DME for ambulation, is on home O2. Patient confirms PCP
Concetta Daniel, [facility] in [place], confirms prescription coverage. Patient denies VN or SNF history. Patient denies any insecurities at home. CM will continue to follow for all discharge planning needs.
Plan; home no needs, watch for VN needs.
[2024-03-10] MEDS: LOKELMA 10 GRAM PO (11:37)
[2024-03-10 15:40] VITALS: BP 138/58
[2024-03-10 23:53] VITALS: BP 142/48
[2024-03-11] MEDS: SYNTHROID 150 MCG PO (06:12)
[2024-03-11 07:32] LABS: ALT (SGPT) 51 U/L (0-50); AST (SGOT) 39 U/L (17-59); Albumin 3.3 g/dl (3.5-5.0); Alkaline Phosphatase 92 U/L (38-126); Blood Urea Nitrogen 26 mg/dl (9-20); Calcium 8.4 mg/dl (8.4-10.2); Carbon Dioxide 38 mmol/L (22-30); Chloride 98 mmol/L (98-107); Estimated Creatinine Clearance 54 ml/min; Glucose 127 mg/dl (70-99); Potassium 4.6 mmol/L (3.5-5.1); Sodium 141 mmol/L (135-145); Total Bilirubin 0.2 mg/dl (0.2-1.3); Total Protein 5.7 g/dl (6.3-8.2); eGFR > 60.00
[2024-03-11 07:55] VITALS: BP 171/73
[2024-03-11] MEDS: ADVAIR HFA 115/21 MCG INHALER 2 PUFF INH (08:09)
[2024-03-11] MEDS: DELTASONE 40 MG PO (08:37)
[2024-03-11] MEDS: CRESTOR 40 MG PO (08:37)
[2024-03-11] MEDS: THERAGRAN 1 TABLET PO (08:37)
[2024-03-11] MEDS: PROTONIX 40 MG PO (08:37)
[2024-03-11] MEDS: ZETIA 10 MG PO (08:38)
[2024-03-11] MEDS: LOW STRENGTH ASPIRIN 81 MG PO (08:38)
[2024-03-11] MEDS: ELIQUIS 5 MG PO (08:38)
[2024-03-11] MEDS: ZITHROMAX 500 MG PO (08:38)
[2024-03-11] MEDS: TOPROL XL 12.5 MG PO (08:38)
--- NOTE | 2024-03-11 10:27 | W.PN.HOSP.TC ---
Today's Communication/Plan
-
Discharge
Assessment / Plan
Assessment / Plan
Gen-AAOx3, NAD
HEENT-NC, AT, anicteric, clear oral mm
Neck-supple
CV-reg, no M, +S1/S2
Lungs-decreased breath sounds bilaterally
Abd-soft, NT, ND
Ext-no edema
Musculoskeletal-no cyanosis, clubbing
Skin-warm and dry
Neuro-grossly non-focal
Psych-calm, cooperative
Acute on chronic hypoxic respiratory failure -due to COPD exacerbation. Baseline uses 2-3 L nasal cannula oxygen. Required 5 L of nasal cannula on admission, oxygenation improved, currently on 2 L.
Acute COPD exacerbation -continue systemic steroids, azithromycin, oxygen, inhalers. No evidence of pneumonia clinically. He uses Trelegy at home, as needed albuterol. He sees a activities director physician video library assistant in [place], wants to change and
start coming to [facility].
COVID and influenza negative.
Completed course of azithromycin in the hospital.
Hyperkalemia -resolved. Treated with 1 dose of Lokelma. Can resume lisinopril on discharge, follow-up closely with PCP.
Elevated transaminases -unclear etiology or chronicity. Labs improving today.
Macrocytic anemia -unclear etiology. Hemoglobin 11.4, previous hemoglobin was normal in July of this year. B12 and folic acid normal. Iron panel not consistent with iron deficiency.
Tobacco dependence - patient claims he quit smoking 2 weeks ago. I spoke with his son on the phone and the son states that he still smokes. Will need to work on this moving forward. Follow-up with PCP.
CAD -multiple prior stents. Continue medical therapy.
Paroxysmal atrial fibrillation -continue Eliquis.
Essential hypertension -stable.
Hyperlipidemia -rosuvastatin, Zetia.
Hypothyroidism -continue levothyroxine.
Pulm fibrosis
DNR -confirmed with the patient/.
Dispo -medically stable for discharge home today. Follow-up with pulmonary and PCP. Updated patient's son on the phone. Discussed with nursing.
32 minutes spent in discharge process.
Anticipated Discharge: Today
Subjective/Interval History
-
Date of Service: March 11, 2024
Patient seen and examined. No complaints.
Objective Data
-
Labs:
Laboratory Results
03/11/24
06:27
Sodium 141
Potassium 4.6
Chloride 98
Carbon Dioxide 38 H
BUN 26 H
Creatinine 1.0
Glucose 127 H
Calcium 8.4
Total Bilirubin 0.2
AST 39
ALT 51 H
Alkaline Phosphatase 92
Vital Signs:
Vital Signs
Temp Pulse Resp BP Pulse Ox
97.5 F 70 16 171/73 98
03/11/24 07:55 03/11/24 08:38 03/11/24 08:11 03/11/24 08:38 03/11/24 08:11
I&O
03/10/24 03/11/24 03/12/24
06:59 06:59 06:59
Intake Total 650 / 650
Output Total 500 / 500 1050 / 1050
Balance -500 / -500 -400 / -400
Review of Systems
-
History Source: Patient
All other systems: Reviewed and negative
--- NOTE | 2024-03-11 10:33 | W.DS.TRANS ---
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
-
Discharge Instructions:
Sleep Apnea Risk Intermediate
Discharge Diagnosis/Procedures COPD exacerbation
Diet Regular
Activity As tolerated
Driving Restrictions As prior to admission
Bathing Restrictions None
Instructions:
Stand-Alone Forms:
Changes to Home Medications: No
Discharge Medications:
DC Medications w/original date entered in [employer]
apixaban 5 mg tablet (Eliquis) 5 mg PO BID Blood Clot Prevention/Tx 07/26/23
ezetimibe 10 mg tablet 10 mg PO DAILY High Cholesterol 07/26/23
lisinopril 5 mg tablet 5 mg PO DAILY Blood Pressure 07/26/23
multivitamin 1 tab PO DAILY Supplement 07/26/23
omega 5-eeg-qic-fish oil 1,000 mg (120 mg-180 mg) capsule (Fish Oil) 1 cap PO DAILY Supplement 07/26/23
rosuvastatin 40 mg tablet 40 mg PO DAILY High Cholesterol 07/26/23
aspirin 81 mg chewable tablet (Children's Aspirin) 81 mg PO DAILY #1 tab 07/28/23
metoprolol succinate 25 mg tablet,extended release 24 hr 12.5 mg (1/2 x 25 mg) PO DAILY #90 tabs 07/28/23
nitroglycerin 0.4 mg sublingual tablet 0.4 mg sublingual [id number] PRN chest pain #25 tabs 07/28/23
pantoprazole 40 mg tablet,delayed release 40 mg PO DAILY #30 tabs 07/28/23
acetaminophen 325 mg tablet (Tylenol) 650 mg PO Q6HPRN PRN mild pain 03/09/24
fluticasone fur. 100 mcg-umeclid 62.5 mcg-vilant 25 mcg inhalat.powder (Trelegy Ellipta) 1 inh inhalation R DAILY Lung/Breathing Issues 03/09/24
levothyroxine 150 mcg tablet (Synthroid) 150 mcg PO DAILY@06 Thyroid 03/09/24
prednisone 10 mg tablet 10 mg PO DIRECTED #30 tabs 03/11/24
Home Medication Changes
Pending Results: No
--- NOTE | 2024-03-11 12:05 | CM ---
Addendum entered by Tigist Crocker 03/11/24 12:08:
CM spoke with patient's via phone; instructed her to bring her 's portable Oxygen tank when she comes to pick him up
Original Note:
Met with patient at bedside
IMM benefit explained; form signed
will transport; reported he has Oxygen at home
Plan: discharge to home today; will transport
== END 2024-03-11 14:15 | disposition home or self-care (01) | DRG 190 ==
LOC: 4 EAST ACU 16:17
PROVIDERS: Emergency Medicine; ADMITTING PHYSICIAN Hospitalist; EMERGENCY PHYSICIAN Emergency Medicine; FAMILY PHYSICIAN Family Medicine
DX: J44.1 Chronic obstructive pulmonary disease with (acute) exacerbation (principal); J96.21 Acute and chronic respiratory failure with hypoxia; Z11.52 Encounter for screening for COVID-19; I48.0 Paroxysmal atrial fibrillation; Z79.01 Long term (current) use of anticoagulants; I25.10 Atherosclerotic heart disease of native coronary artery without angina pectoris; Z66 Do not resuscitate; J84.10 Pulmonary fibrosis, unspecified; E78.5 Hyperlipidemia, unspecified; E03.9 Hypothyroidism, unspecified; I10 Essential (primary) hypertension; E87.5 Hyperkalemia; F17.200 Nicotine dependence, unspecified, uncomplicated; D50.9 Iron deficiency anemia, unspecified
CPT/HCPCS: 71046; 80053; 82607; 82728; 82746; 83540; 83550; 83605; 84145; 85025; 85045; 85610; 87070; 87205; 87502; 87811; 93005; 94640; 96365; 96375; 99285

== ENCOUNTER 2024-11-28 18:20 | Inpatient (IN) | payer OTHER, SELFPAY ==
[2024-11-28] VITALS (12 sets, daily range): BP systolic 147–171; BP diastolic 56–135; BMI 28.1
--- NOTE | 2024-11-28 10:52 | ED.GENMED ---
History of Present Illness
General
Chief Complaint: Breathing Problem
Source: patient
Exam Limitations: none
Time Seen by Provider: 11/28/24 10:52
Nursing documentation reviewed up to this point in time: agreed with
History of Present Illness
History of Present Illness:
patient is 84-year-old male past with history of COPD/pulmonary fibrosis on home oxygen A-fib hypertension, CAD, stents presents to the ER for evaluation. Patient had worsening shortness of breath for the past several weeks that worsened over the
past several days. Patient has used his albuterol nebs without relief. He is followed by pulmonary here at [place]. Family at bedside reports patient was given a nebulized medication months ago which really worked however they are no longer
able to get it.
In addition patient feels dizzy. He denies vertigo sensation but March reports he feels dizzy. This is not necessarily new .
He denies any recent trauma
Phy Exam
General Physical Exam
General Presentation: no apparent distress
General age: appears stated age
General Skin: warm and dry
General Habitus: elderly
General Mental: alert
General Hydration: appears well hydrated
Cardiovascular Exam
Cardiovascular Exam: regular rate/rhythm and no murmur
Pulmonary Exam
Pulmonary Exam: no respiratory distress and other (Decreased throughout)
Neurological Exam
Neurological Exam: alert and oriented x3
Musculoskeletal Exam
Musculoskeletal Exam: full ROM
Skin Exam
Skin Exam: normal color and warm/dry
Psychiatric Exam
Psychiatric Exam: normal mood/affect
Scores
Heart Failure Risk
Heart Failure Risk Score: Not Applicable
Course
Orders/Labs/Results
Orders:
Orders
11/28/24 11:10
Cardiac Monitoring- Treatment ONCE
IV Insert/Care/Rem.- Treatment PRN
CR Chest - 2 Views Urgent
Comment:
Reason For Exam: sob
11/28/24 11:11
Albuterol Sulfate [Ventolin Nebules] 7.5 mg INH R NOW STA
Ipratropium Nebs [Atrovent Nebules] 1 mg INH R NOW STA
11/28/24 11:15
Complete Blood Count/With Diff Urgent
Comprehensive Metabolic Panel Urgent
NT-proBNP Urgent
Comment: ADD ON
Troponin I Urgent
11/28/24 12:31
Electrocardiogram (*1) Stat
Reason for Study: Other
Other Reason for Exam: chest pain
EKG- Treatment ONCE
11/28/24 14:10
CT Chest PE Study Urgent
Comment:
Reason For Exam: SOB
11/28/24 15:13
Add On- LAB Stat
Tests Added?: cardiac bnp
11/28/24 15:17
CT Head W/o Iv Contrast Urgent
Comment:
Reason For Exam: dizziness
11/28/24 17:12
Albuterol Nebs [Ventolin Nebules] 2.5 mg INH R NOW STA
Abnormal Lab Results
11/28/24
11:15
RBC 3.61 L 10^6/uL
(4.70-6.10)
Hgb 11.2 L g/dL
(13.0-18.0)
Hct 37.2 L %
(39.0-52.0)
MCV 103.0 H fL
(80.0-94.0)
MCHC 30.1 L g/dL
(33.0-37.0)
RDW 15.3 H %
(11.5-14.5)
MPV 10.9 H fL
(7.4-10.4)
Absolute Monos (auto) 0.8 H 10^3/uL
(0.1-0.6)
Carbon Dioxide 37 H mmol/L
(22-30)
BUN 22 H mg/dl
(9-20)
Glucose 103 H mg/dl
(70-99)
AST 78 H U/L
(17-59)
ALT 141 H U/L
(0-50)
Troponin I 0.068 H* ng/ml
11/28/24 11:15
11/28/24 11:15
Vital Signs
Initial and Last Documented VS:
Initial Vital Signs
Temp Pulse Resp BP Pulse Ox
97.6 F 77 32 171/81 93
11/28/24 10:28 11/28/24 10:28 11/28/24 10:28 11/28/24 10:28 11/28/24 10:28
Last Documented Vital Signs
Temp Pulse Resp BP Pulse Ox
97.6 F 74 27 154/56 94
11/28/24 10:28 11/28/24 16:15 11/28/24 16:15 11/28/24 16:00 11/28/24 16:15
MDM/Problems Addressed
MDM/Problems Addressed:
Patient is an 84-year-old male with past medical history as documented above presents for shortness of breath. He is on home O2 and followed by pulmonology. He has had increasing shortness of breath and presented here with decreased air movement.
dizziness also complains of some dizziness as well. Patient was given an hour-long neb and steroids. Patient denies any headache CAT scan ordered and negative. Patient denies any fever chills patient with normal temp normal white count stable
hemoglobin stable creatinine. He has history of chronic elevated troponin no chest pain troponin elevated today as well however decreased from previous previous. Despite hour-long neb patient is still tachypneic however stable in no acute distress.
Chest x-ray done and CAT scan done as well which is negative for PE, does show nodular opacities along the right major fissure and in the right lower lobe infectious inflammatory process possible however malignancy cannot be excluded would recommend
admission for dyspnea and dizziness..
*Radiology
Radiology exam reviewed: radiology read reviewed
*Pulse Oximetry
SaO2: 93
Nasal Cannula flow liters per minute: 3
Patient hypoxic: yes
*EKG
Heart Rate: 71
Rhythm: sinus
Ischemia: non-specific ST changes
*Critical Care Note
Total Time (30-74mins, 75-104mins- exclusive of procedures): Not Applicable
ED Attending Note
-
Portions of this chart may have been created with voice recognition software.� Occasional wrong word or��sound alike� substitutions may have occurred due to the inherent limitations of voice recognition software.
Discharge Plan
Departure
Patient Disposition: Admit
Date of Disposition: 11/28/24
Time of Disposition: 17:13
Admit to: Med/Surg
Admit to doctor: hospitalist
Presentation/result/management discussed w/ accepting MD/DO: Hospitalist
Patient with high blood pressure during this ER visit?: Yes
Condition: Fair
Covid-19: Not Applicable
Discharge Problem:
copd exacerbation, Dizziness
Prescriptions:
No Action
lisinopril 5 mg Tablet
5 mg PO DAILY
Eliquis 5 mg Tablet
5 mg PO BID
ezetimibe 10 mg Tablet
10 mg PO DAILY
rosuvastatin 40 mg Tablet
40 mg PO DAILY
omega 0-pmf-shs-fish oil [Fish Oil] 1,000 mg (120 mg-180 mg) Capsule
1 cap PO DAILY
pantoprazole 40 mg Tablet,Delayed Release (Dr/Ec)
40 mg PO DAILY Qty: 30 5RF
metoprolol succinate 25 mg Tablet Extended Release 24 Hr
12.5 mg PO DAILY Qty: 90 5RF
acetaminophen [Tylenol] 325 mg Tablet
650 mg PO Q6HPRN PRN (Reason: mild pain)
levothyroxine [Synthroid] 150 mcg Tablet
150 mcg PO DAILY
Trelegy Ellipta 100-62.5-25 mcg Blister With Device
1 inh INHALATION R DAILY
albuterol sulfate 2.5 mg /3 mL (0.083 %) Solution For Nebulization
2.5 mg INHALATION R Q6HPRN PRN (Reason: sob)
Theragen Tablet
1 tab PO DAILY
budesonide 0.5 mg/2 mL Suspension For Nebulization
0.5 mg INHALATION R BID
Referrals:
Pina Olivarez DO [Family Provider, Family Practice]
Interventions
Interventions:
*General Assessment Last Done: 11/28/24 10:59
*Neglect/Abuse Screening Last Done: 11/28/24 12:14
*ED- Fall Risk Assessment Last Done: 11/28/24 10:59
*ED COVID-19 Vaccine History Last Done: 11/28/24 10:59
ED- Cardiac Assessment Last Done: 11/28/24 10:59
ED- Pulmonary Assessment Last Done: 11/28/24 10:59
Discharge Date and Time
Print Language: SETSWANA
[2024-11-28] MEDS: VENTOLIN NEBULES 7.5 MG INH (11:19)
[2024-11-28] MEDS: ATROVENT NEBULES 1 MG INH (11:19)
[2024-11-28 12:09] LABS: ALT (SGPT) 141 U/L (0-50); AST (SGOT) 78 U/L (17-59); Albumin 4.2 g/dl (3.5-5.0); Alkaline Phosphatase 67 U/L (38-126); Blood Urea Nitrogen 22 mg/dl (9-20); Calcium 8.8 mg/dl (8.4-10.2); Chloride 101 mmol/L (98-107); Glucose 103 mg/dl (70-99); Hematocrit 37.2 % (39.0-52.0); Hemoglobin 11.2 g/dL (13.0-18.0); Mean Corp Hgb Conc. 30.1 g/dL (33.0-37.0); Mean Corpuscular Volume 103.0 fL (80.0-94.0); Nucleated Red Blood Cells % 0.2 % (-); Platelet Count 154 10^3/uL (130-400); Potassium 5.0 mmol/L (3.5-5.1); Red Cell Dist. Width 15.3 % (11.5-14.5); Sodium 142 mmol/L (135-145); Total Protein 6.5 g/dl (6.3-8.2); eGFR > 60.00
[2024-11-28 12:17] LABS: Troponin I 0.068 ng/ml
[2024-11-28 12:19] LABS: Carbon Dioxide 37 mmol/L (22-30)
[2024-11-28] MEDS: VENTOLIN NEBULES 2.5 MG INH (17:20)
[2024-11-28 17:29] LABS: Urine Character Clear (Clear)
--- NOTE | 2024-11-28 17:31 | HPS.HSE ---
Family Physician
-
Family Physician: Pina Olivarez DO
Chief Complaint
-
Shortness of breath, dyspnea on exertion
History of Present Illness
84-year-old male complaining of shortness of breath with dyspnea on exertion, orthopnea and nonproductive cough over the past several weeks however is worsened over the past several days. He reports he normally wears 2 L of oxygen at nighttime,
however he has had to start wearing during the day. He reports using albuterol/budesonide/Trelegy nebs without relief. He also reports dizziness with hypoxia when walking outside without his oxygen. He has +1 lower extremity edema on exam. He
reports weight gain of approximately 9 pounds in the past 2 months 174 pounds to 183 pounds he denies recent no sick contacts, illness fever, chills, chest pain, palpitations, abdominal pain, nausea, vomiting, diarrhea, urinary symptoms. This past
medical history of COPD/pulmonary fibrosis on home oxygen, paroxysmal A-fib, HTN, CAD/cardiac stents. He follows with pulmonology as outpatient.
Medical History
Past Medical History
Past Medical History: Reports Other
Additional Past Medical History:
COPD on nocturnal oxygen
Pulmonary fibrosis
Hypothyroidism
Hyperlipidemia
CAD
Paroxysmal atrial fibrillation
Essential hypertension
BPH
Carotid stenosis
Past Surgical History: Reports Other
Additional Past Surgical History:
Hernia repair
Social History
Tobacco: Former Smoker (64-year 1 pack a day quit June 2024)
Alcohol: Former
Drug: None
Personal:
Living: With Family
Employment: Not Employed
Family History
Family History: Not pertinent
Allergies / Home Medications
Allergies reflects when Allergies were last updated in [facility].
Home Medications with original date entered in [facility]
Allergy/Medication List:
Allergies
Allergy/AdvReac Type Severity Reaction Status Date / Time
No Known Allergies Allergy Verified 11/28/24 10:31
Home Medications
apixaban 5 mg tablet (Eliquis) 5 mg PO BID Blood Clot Prevention/Tx 07/26/23
ezetimibe 10 mg tablet 10 mg PO DAILY High Cholesterol 07/26/23
lisinopril 5 mg tablet 5 mg PO DAILY Blood Pressure 07/26/23
omega 1-zji-vsc-fish oil 1,000 mg (120 mg-180 mg) capsule (Fish Oil) 1 cap PO DAILY Supplement 07/26/23
rosuvastatin 40 mg tablet 40 mg PO DAILY High Cholesterol 07/26/23
metoprolol succinate 25 mg tablet,extended release 24 hr 12.5 mg (1/2 x 25 mg) PO DAILY #90 tabs 07/28/23
pantoprazole 40 mg tablet,delayed release 40 mg PO DAILY #30 tabs 07/28/23
acetaminophen 325 mg tablet (Tylenol) 650 mg PO Q6HPRN PRN mild pain 03/09/24
fluticasone fur. 100 mcg-umeclid 62.5 mcg-vilant 25 mcg inhalat.powder (Trelegy Ellipta) 1 inh inhalation R DAILY Lung/Breathing Issues 03/09/24
levothyroxine 150 mcg tablet (Synthroid) 150 mcg PO DAILY Thyroid 03/09/24
albuterol sulfate 2.5 mg/3 mL (0.083 %) solution for nebulization 2.5 mg inhalation R Q6HPRN PRN sob 11/28/24
budesonide 0.5 mg/2 mL suspension for nebulization 0.5 mg inhalation R BID 11/28/24
therapeutic multivitamin 1 tab PO DAILY 11/28/24
Review of Systems
-
History Source: Patient and Family ( at bedside)
A 12 point ROS was completed and negative except as noted: Yes
Constitutional: Reports Weight Gain (9 pounds past 2-month) and Fatigue; Denies Fever
EENT: Denies Sore Throat or Runny Nose
Respiratory: Reports Cough (Nonproductive) and Trouble Breathing (AYOUB, orthopnea using 2 pillows at home)
Cardiac: Denies Chest Pain, Diaphoresis, Palpitations or Syncope
Abdomen/GI: Denies Abdominal Pain, Nausea, Vomiting, Diarrhea or Constipated
: Denies Dysuria, Frequency, Flank Pain or Incontinence
Musculoskeletal: Reports Edema (+2 bilateral lower legs); Denies Joint Pain
Skin: Denies Itching or Rash
Neurological: Reports Dizzy (On ambulation without oxygen); Denies Headache or Weakness
Endocrine: Reports No Symptoms
Hematologic/Lymphatic: Reports No Symptoms
Psych: Reports Calm
Physical Exam
Vital Signs
Vital Signs
Temp Pulse Resp BP Pulse Ox
97.6 F 76 22 154/69 97
11/28/24 10:28 11/28/24 17:15 11/28/24 17:15 11/28/24 17:00 11/28/24 17:15
Physical Exam
General: Conversant; No Pain, Fever or Chills
HEENT: NormoCephalic, Anicteric, PERRLA, [place] Conjunctivae, No Ptosis and Oxygen (3 L nasal cannula)
Respiratory: Rales (Dry throughout both lung porter with history of pulm fibrosis) and Decreased Breath Sounds (Bilaterally throughout both lung porter); No Rhonchi or Crackles
Cardiac: S1/S2, Irregular Rhythm (A-fib controlled rate) and Peripheral Edema (+2 bilateral lower legs); No Murmur, Rub or Gallop
Breast: Deferred by me
GI: Soft, Non Tender, Non Distended and Normal Bowel Sounds
Rectal: Deferred by Provider
Genito-urinary: Deferred by me
Musculoskeletal: No Clubbing, No Cyanosis, Edema, Left Lower Extremity (+2 bilateral lower legs to ankles) and Edema, Right Lower Extremity (+2 bilateral lower legs to ankles); No Edema, Left Upper Extremity or Edema, Right Upper Extremity
Skin: Warm and Dry; No Rash or Jaundice
Neuro: AO x 3, No Motor Deficits, Nonfocal/grossly intact and No Sensory Deficits; No Slurred Speech, Facial Droop or Tremors
Psych: Calm
Laboratory Results
-
11/28/24 11:15
11/28/24 11:15
Laboratory Results
Total Bilirubin 0.9 mg/dl (0.2-1.3) 11/28/24 11:15
AST 78 U/L (17-59) H 11/28/24 11:15
ALT 141 U/L (0-50) H 11/28/24 11:15
Alkaline Phosphatase 67 U/L (38-126) 11/28/24 11:15
Troponin I 0.068 ng/ml H* 11/28/24 11:15
Impression/Plan
-
Impression/plan:
Admit to telemetry
#Acute peripheral edema with weight gain concern possible underlying CHF
BNP 1570, reported 174 pounds to 183 pounds past 2-month
- Check 2D echo
- IV Lasix 40 mg now
i/o weights
# Chronic COPD without exacerbation
#History Pulmonary fibrosis
Patient 2 L dependent at night
-97% 3 L nasal cannula
- Continue budesonide twice daily, Trelegy Ellipta
- DuoNebs scheduled and as needed
- Check influenza, COVID
#New vs old nodular opacities right major fissure/right lower lobe cannot exclude malignancy
-- pt follows with Dr Ascencio
CT PE study: Nodular opacities along the right major fissure measuring up to 9.4 mm. There is additional 1.3 cm nodule within
the superior aspect of the right lower lobe. While findings may be infectious/inflammatory malignancy cannot be excluded.
Recommend short interval CT chest or PET for further evaluation.
#Former smoker 64-year 1 pack a day quit approximately June 2024
#Chronic troponin elevation
Troponin 0.068 will trend has been trending down since 07/27/2023 at 0.312
EKG: A-fib 71 bpm, QTc 421 MS
2D echo 04/21/2023: EF 60%, normal RV function, normal LV function mild left atrial dilation, mild MR
#Acute on chronic transaminitis
AST 78, ALT 141, alk phos 67
#Chronic macrocytic anemia
Hgb 11.2, MCV 103-appears baseline for patient
# Paroxysmal atrial fibrillation
-continue Eliquis 5 mg twice daily, metoprolol succinate 12.5 mg daily
#CAD/history multiple stents
- Continue Crestor 40 mg daily, ezetimibe 10 mg daily, metoprolol succinate 12.5 mg daily
#Essential hypertension
- Continue lisinopril 5 mg daily, metoprolol succinate 12.5 mg daily
#Hyperlipidemia -rosuvastatin, Zetia.
#Hypothyroidism -continue levothyroxine
#GERD
Continue Protonix 40 mg daily
DVT prophylaxis
Continue [employer]. 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
DNR per patient with RBEE at bedside
[2024-11-28 17:54] LABS: Urine Squamous Cell 0-2 /LPF (Few)
--- NOTE | 2024-11-28 18:08 | W.PN.UPDATE ---
Update Note
Progress Note Update
Patient seen and examined and discussed with ANTONIA Rodriguez, and I agree with her note.
Gen-AAOx3, NAD
HEENT-NC, AT, anicteric, clear oral mm
Neck-supple, positive JVD
CV-reg, no M, +S1/S2
Lungs-decreased breath sounds bilaterally with few scattered rales at the bases
Abd-soft, NT, ND
Ext-bilateral lower extremity edema to calves
Musculoskeletal-no cyanosis, clubbing
Skin-warm and dry
Neuro-grossly non-focal
Psych-calm, cooperative
Acute on chronic hypoxic respiratory failure -differential diagnosis of heart failure exacerbation versus COPD exacerbation (less likely) versus other. No evidence of pneumonia or pulmonary embolism. CT and chest x-ray reviewed. 1.3 cm lung
nodule in the superior aspect of the right lower lobe noted on CT. Patient's son states this is chronic, recommend outpatient follow-up with pulmonary.
Normally uses nocturnal oxygen 2 L but started using daytime oxygen at home due to increased dyspnea on exertion over the past few days and weeks.
Check for COVID and influenza.
Acute heart failure with preserved EF exacerbation -presentation with shortness of breath, JVD, lower extremity edema, weight gain, BNP elevation 1570. Not on diuretics at home.
Admit to telemetry.
Give a dose of IV Lasix. Check echocardiogram in the morning.
COPD without exacerbation -I hear no wheezing on exam. Continue home inhalers. Patient does have a chronic cough.
Chronic pulmonary fibrosis
CAD -underwent cardiac catheterization July 2023 with successful orbital atherectomy of the ostial circumflex, successful PCI of the circumflex into the left main coronary artery. His gas brazer is Dr. Angelo Bush.
Troponin elevation noted, 0.068. Suspect acute nonischemic myocardial injury, possibly due to heart failure.
Elevated transaminases -unclear if due to passive congestion from heart failure versus other etiology. Will trend LFTs.
Macrocytic anemia, chronic -hemoglobin appears to be at baseline. Monitor for now.
Hypothyroidism -levothyroxine.
Hyperlipidemia -hold lipid-lowering agents given elevated transaminases.
Paroxysmal atrial fibrillation -continue Eliquis.
BPH
Essential hypertension with hypertensive urgency -blood pressure transiently elevated to 163/135, repeat 156/88. Resume home meds.
History of tobacco dependence -quit 6 months ago.
DNR
Son and updated at the bedside.
[2024-11-28] MEDS: LASIX 40 MG IV (18:21)
[2024-11-28 18:53] LABS: COVID-19 Antigen Negative (Negative)
[2024-11-28 19:24] LABS: Troponin I 0.071 ng/ml
[2024-11-28] MEDS: ELIQUIS 5 MG PO (20:25)
[2024-11-28] MEDS: PULMICORT 0.5 MG INH (21:19)
--- NOTE | 2024-11-28 22:41 | PTCARENOTE ---
pt with 10 beat run of VTach on tele monitor, pt was sleeping at the time. Pt stating no chest pain or palpitations, BP 160/67. THERAPEUTIC RECREATION SPECIALIST made aware, mag and vit B levels ordered with AM labs.
[2024-11-29] VITALS (7 sets, daily range): BP systolic 125–150; BP diastolic 54–66; PULSE 66; O2SAT 93; BMI 27.5
[2024-11-29] MEDS: SYNTHROID 150 MCG PO (06:23)
[2024-11-29] MEDS: SYMBICORT 80/4.5 MCG INHALER 2 PUFF INH ×2 (07:45→19:51)
[2024-11-29] MEDS: SPIRIVA RESPIMAT 2.5 MCG 2 PUFF INH (07:45)
[2024-11-29] MEDS: PULMICORT 0.5 MG INH (07:46)
[2024-11-29] MEDS: DUONEB 3 ML INH (07:46)
[2024-11-29 08:08] LABS: Hematocrit 40.9 % (39.0-52.0); Hemoglobin 11.9 g/dL (13.0-18.0); Mean Corp Hgb Conc. 29.1 g/dL (33.0-37.0); Mean Corpuscular Volume 103.5 fL (80.0-94.0); Nucleated Red Blood Cells % 0 % (-); Platelet Count 168 10^3/uL (130-400); Red Cell Dist. Width 15.0 % (11.5-14.5)
[2024-11-29 08:33] LABS: ALT (SGPT) 113 U/L (0-50); AST (SGOT) 54 U/L (17-59); Albumin 4.0 g/dl (3.5-5.0); Alkaline Phosphatase 62 U/L (38-126); Blood Urea Nitrogen 18 mg/dl (9-20); Calcium 8.6 mg/dl (8.4-10.2); Chloride 94 mmol/L (98-107); Estimated Creatinine Clearance 59 ml/min; Glucose 118 mg/dl (70-99); Magnesium 1.7 mg/dl (1.6-2.3); Potassium 4.4 mmol/L (3.5-5.1); Sodium 141 mmol/L (135-145); Total Protein 6.3 g/dl (6.3-8.2); eGFR > 60.00
[2024-11-29 08:43] LABS: Carbon Dioxide 40 mmol/L (22-30)
[2024-11-29] MEDS: TOPROL XL 12.5 MG PO (08:57)
[2024-11-29] MEDS: THERAGRAN 1 TABLET PO (08:57)
[2024-11-29] MEDS: ZESTRIL 5 MG PO (08:57)
[2024-11-29] MEDS: ELIQUIS 5 MG PO ×2 (08:57→20:55)
[2024-11-29] MEDS: PROTONIX 40 MG PO (08:57)
[2024-11-29 09:18] LABS: Vitamin B12 697 pg/ml (239-931)
--- NOTE | 2024-11-29 12:05 | W.PN.HOSP.TC ---
Today's Communication/Plan
-
Follow-up echocardiogram
Cardiology consult
Wean oxygen as able
Assessment / Plan
Assessment / Plan
Gen-AAOx3, NAD
HEENT-NC, AT, anicteric, clear oral mm
Neck-supple, improved JVD
CV-reg, no M, +S1/S2
Lungs-decreased breath sounds bilaterally
Abd-soft, NT, ND
Ext-improved bilateral lower extremity edema
Musculoskeletal-no cyanosis, clubbing
Skin-warm and dry
Neuro-grossly non-focal
Psych-calm, cooperative
Acute on chronic hypoxic respiratory failure -differential diagnosis of heart failure exacerbation versus COPD exacerbation (less likely) versus other. No evidence of pneumonia or pulmonary embolism. CT and chest x-ray reviewed. 1.3 cm lung
nodule in the superior aspect of the right lower lobe noted on CT. Patient's son states this is chronic, recommend outpatient follow-up with pulmonary.
Normally uses nocturnal oxygen 2 L but started using daytime oxygen at home due to increased dyspnea on exertion over the past few days and weeks. Wean down oxygen as able.
COVID/influenza negative.
Acute heart failure with preserved EF exacerbation -presentation with shortness of breath, JVD, lower extremity edema, weight gain, BNP elevation 1570. Not on diuretics at home.
Received 1 dose of IV Lasix on admission. Bicarbonate up to 40 today, was 37 on admission. Suspect has chronic compensated metabolic alkalosis due to suspected chronic hypercapnia.
States that shortness of breath has improved overnight. JVD and lower extremity edema improved clinically.
Echocardiogram completed and pending. Will consult cardiology.
COPD without exacerbation -I hear no wheezing on exam. Continue home inhalers. Patient does have a chronic cough.
Chronic pulmonary fibrosis
CAD -underwent cardiac catheterization July 2023 with successful orbital atherectomy of the ostial circumflex, successful PCI of the circumflex into the left main coronary artery. His emt intermediate is Dr. Angelo Bush.
Troponin elevation noted, 0.068. Suspect acute nonischemic myocardial injury, possibly due to heart failure.
Elevated transaminases -unclear if due to passive congestion from heart failure versus other etiology. Transaminases coming down.
Macrocytic anemia, chronic -hemoglobin appears to be at baseline. Monitor for now.
Hypothyroidism -levothyroxine.
Hyperlipidemia -hold lipid-lowering agents given elevated transaminases.
Paroxysmal atrial fibrillation -continue Eliquis.
BPH
Essential hypertension with hypertensive urgency -stable.
History of tobacco dependence -quit 6 months ago.
DNR
Anticipated Discharge: 24 - 48 hours
Subjective/Interval History
-
Date of Service: November 29, 2024
Patient seen and examined. States shortness of breath has improved. No new complaints.
Objective Data
-
Labs:
Laboratory Results
11/29/24
07:14
WBC 8.5
Hgb 11.9 L
Hct 40.9
Plt Count 168
Sodium 141
Potassium 4.4
Chloride 94 L
Carbon Dioxide 40 H
BUN 18
Creatinine 0.9
Glucose 118 H
Calcium 8.6
Total Bilirubin 1.1
AST 54
ALT 113 H
Alkaline Phosphatase 62
Vital Signs:
Vital Signs
Temp Pulse Resp BP Pulse Ox
97.9 F 67 20 136/63 94
11/29/24 11:54 11/29/24 11:54 11/29/24 11:54 11/29/24 11:54 11/29/24 11:54
I&O
11/28/24 11/29/24 11/30/24
06:59 06:59 06:59
Output Total 2750 / 2750 400 / 400
Balance -2750 / -2750 -400 / -400
Review of Systems
-
History Source: Patient
All other systems: Reviewed and negative
--- NOTE | 2024-11-29 13:12 | CON.CAR ---
Addendum entered and electronically signed by Jennifer Castellanos MD 11/29/24 15:16:
I saw and examined the patient.
The VOLUNTEER SERVICES SPECIALIST's note was reviewed and I agree with the note.
Comment: 84 y/o (patient of Dr. Angelo Bush) with CAD with hx stenting (most recent 07/2023), hypertension, dyslipidemia, smoking (recently quit), hypothyroidism, PAF on Eliquis, COPD who is here for SOB which is improving with lasix. He had an echo
with normal lv function, mild as and moderate pHTN. On exam he has an elevated jvp, lungs cta, rrr and trace le edema. cxr with cephalization. Probnp elevated. Overall findings are c/w HFpEF. Start MRA, sglt2i, continue ivdiuresis. CHF team c/s.
He was in fib at time of echo but now back in nsr, this seems asx. Continue Eliquis and bb. CAD is chronic and no cp. Continue medical therapy.
Will follow.
Original Note:
Consultation
Consultation Request
Date/Time Consultation Requested: 11/29/24 1207
Date/Time Consultation Performed: 11/29/24 1310
Requesting Provider: Dr. Herman
Performing Provider: Susie FAIRBANKS for Dr. Castellanos
Reason for Consultation: CHF
Medical History
-
Chief Complaint: SOB
History of Present Illness:
84 y/o (patient of Dr. Angelo Bush) with CAD with hx stenting (most recent 07/2023), hypertension, dyslipidemia, smoking (recently quit), hypothyroidism, PAF on Eliquis, COPD who is here for SOB with associated dizziness- this has been ongoing for
about 1 month. He received a dose of IV Lasix today. He feels improved today. We are consulted due to suspected CHF. BNP 1570. He has trace BLE edema today. Denies orthopnea or PND. He usually wears O2 at night, but
Past Medical History
Past Medical History: Arrhythmias, CAD, COPD, HTN and Hypercholesterolemia
Social History
Tobacco: Former Smoker
Family History
Family History: Reviewed & Not Pertinent
Allergies / Home Medications
Allergy/AdvReac Type Severity Reaction Status Date / Time
No Known Allergies Allergy Verified 11/28/24 10:31
�Medication �Instructions �Recorded �Confirmed �Type
apixaban 5 mg tablet (Eliquis) 5 mg PO BID Blood Clot 07/26/23 11/28/24 History
Prevention/Tx
ezetimibe 10 mg tablet 10 mg PO DAILY High Cholesterol 07/26/23 11/28/24 History
lisinopril 5 mg tablet 5 mg PO DAILY Blood Pressure 07/26/23 11/28/24 History
omega 6-mpz-hov-fish oil 1,000 mg 1 cap PO DAILY Supplement 07/26/23 11/28/24 History
(120 mg-180 mg) capsule (Fish Oil)
rosuvastatin 40 mg tablet 40 mg PO DAILY High Cholesterol 07/26/23 11/28/24 History
metoprolol succinate 25 mg 12.5 mg (1/2 x 25 mg) PO DAILY #90 07/28/23 11/28/24 Rx
tablet,extended release 24 hr tabs
pantoprazole 40 mg tablet,delayed 40 mg PO DAILY #30 tabs 07/28/23 11/28/24 Rx
release
acetaminophen 325 mg tablet 650 mg PO Q6HPRN PRN mild pain 03/09/24 11/28/24 History
(Tylenol)
fluticasone fur. 100 mcg-umeclid 1 inh inhalation R DAILY 03/09/24 11/28/24 History
62.5 mcg-vilant 25 mcg Lung/Breathing Issues
inhalat.powder (Trelegy Ellipta)
levothyroxine 150 mcg tablet 150 mcg PO DAILY Thyroid 03/09/24 11/28/24 History
(Synthroid)
albuterol sulfate 2.5 mg/3 mL 2.5 mg inhalation R Q6HPRN PRN sob 11/28/24 11/28/24 History
(0.083 %) solution for nebulization
budesonide 0.5 mg/2 mL suspension 0.5 mg inhalation R BID 11/28/24 11/28/24 History
for nebulization Lung/Breathing Issues
therapeutic multivitamin 1 tab PO DAILY Supplement 11/28/24 11/28/24 History
Review of Systems
-
History Source: Patient
All other systems: Negative unless noted
Respiratory: Trouble Breathing
Neurological: Dizzy
Physical Exam
Vital Signs
Temp Pulse Resp BP Pulse Ox
97.9 F 67 20 136/63 94
11/29/24 11:54 11/29/24 11:54 11/29/24 11:54 11/29/24 11:54 11/29/24 11:54
Lab Results
11/29/24 07:14
11/29/24 07:14
Troponin I 0.071 ng/ml H* 11/28/24 18:22
Zbe-D-Fwqpqbwdxhq Pept 1570 pg/ml 11/28/24 11:15
Physical Exam
General: Well Developed, Well Nourished and No Apparent Distress
HEENT: Normocephalic and Anicteric
Respiratory: Clear, Non Labored Respirations and Other (on O2 by NC)
Cardiac: Regular Rhythm
Musculoskeletal: Edema (trace BLE)
Skin: Warm and Dry
Neuro: AO x 3
Psych: Calm
Impression / Plan
-
SOB:
-likely multifactorial in this patient with underlying lung disease and acute HFpEF. COPD management per primary.
-typically only wears O2 at night
Acute HFpEF:
-s/p a dose of IV Lasix- feels improved. Will continue- this requires intensive monitoring
-echo 11/29/24: EF 55-60%. Mild aortic stenosis. Moderate pulmonary hypertension.
-reports dry weight is about 175 lbs and is currently 180 lbs
-CHF diet/education
CAD:
-most recent cath as below
-continue Eliquis, statin, BB
Abnormal troponin:
-suspect acute, non-ischemic myocardial injury in setting of CHF exacerbation
-LV function WNL on echo
PAF:
-was in SR on arrival with PAC's, now in rate-controlled AFIB- continue low dose metoprolol
-continue Eliquis for OAC
NSVT:
-10 beat run
-EF normal
-replace mag
-continue BB- dose increase limited by hx bradycardia
-follow telemetry
HTN:
-monitor with diuresis
Data:
CT scan 11/28/24: No evidence of central or segmental pulmonary embolism. Distal pulmonary arteries are not well evaluated secondary to motion artifact. Nodular opacities along the right major fissure measuring up to 9.4 mm. There is additional 1.3 cm
nodule within the superior aspect of the right lower lobe. While findings may be infectious/inflammatory malignancy cannot be excluded. Recommend short interval CT chest or PET for further evaluation.
Cath 07/27/23: Right dominant circulation with multiple prior PCI's in the mid RCA, RPL, mid/distal circumflex and large first diagonal, MIGRANT LEADER of the proximal LAD after the origin of the large diagonal, a 60-70% lesion in the proximal circumflex
immediately before the origin of OM1 and a densely calcified, 90% ostial circumflex lesion, now status post successful orbital atherectomy and IVUS guided PCI of both circumflex lesions into the left main coronary artery ([employer] [place] 3.5
x 38 RASHEEDA, postdilated with a 4.0 NC balloon throughout and a 4.5 NC balloon in the left main coronary artery) with reduction in both stenoses to 0%, maintaining ZACH-3 flow in the circumflex as well as in the jailed large diagonal.
Data Reviewed
-
EKG: Tracing Personally Visualized and interpreted (NSR with PAC's, NS T abnormality)
Radiology: Report Reviewed by me
Medical Tests (Nuc Med, Echo etc): Report Reviewed by me (Echo 04/21/23: Normal LV function. EF 60%. 2. Normal RV function 3. There is mild left atrial dilatation 4. There is trivial to mild mitral regurgitation. 5. There is mild increase in the
right ventricular systolic pressure.)
Labs: Labs Reviewed by me
[2024-11-29] MEDS: LASIX 20 MG IV (15:24)
[2024-11-29] MEDS: MAGNESIUM SULFATE 102 GRAMS IV (15:24)
[2024-11-29] MEDS: ALDACTONE 12.5 MG PO (15:24)
[2024-11-29] MEDS: PULMICORT INH (19:56)
[2024-11-30] VITALS (7 sets, daily range): BP systolic 119–136; BP diastolic 45–62; PULSE 65; O2SAT 95; BMI 27.2
[2024-11-30] MEDS: SYNTHROID 150 MCG PO (05:58)
[2024-11-30] MEDS: PULMICORT 0.5 MG INH ×2 (07:40→19:19)
[2024-11-30] MEDS: SYMBICORT 80/4.5 MCG INHALER 2 PUFF INH ×2 (07:40→19:19)
[2024-11-30] MEDS: SPIRIVA RESPIMAT 2.5 MCG 2 PUFF INH (07:40)
[2024-11-30] MEDS: TOPROL XL 12.5 MG PO (07:50)
[2024-11-30] MEDS: LASIX 20 MG IV ×2 (07:50→16:49)
[2024-11-30] MEDS: PROTONIX 40 MG PO (07:50)
[2024-11-30] MEDS: ALDACTONE 12.5 MG PO (07:51)
[2024-11-30] MEDS: FARXIGA 10 MG PO (07:51)
[2024-11-30] MEDS: ELIQUIS 5 MG PO ×2 (07:51→19:29)
[2024-11-30] MEDS: ZESTRIL 5 MG PO (07:51)
[2024-11-30] MEDS: THERAGRAN 1 TABLET PO (07:51)
--- NOTE | 2024-11-30 08:20 | W.PN.CD ---
Today's Communication / Plan
-
continue lasix 20mg IV bid, farxiga, aldactone
assess for PO lasix tomorrow
Impression / Plan
-
SOB:
-likely multifactorial in this patient with underlying lung disease and acute HFpEF. COPD management per primary.
-typically only wears O2 at night
Acute HFpEF:
-severe, requiring hospitalization, and IV diuresis with close monitoring of labs/tele
-echo 11/29/24: EF 55-60%. Mild aortic stenosis. Moderate pulmonary hypertension.
-reports dry weight is about 175 lbs and is currently 178 lbs
-continue lasix 20mg IV bid, farxiga, aldactone
CAD:
-most recent cath as below
-continue Eliquis, statin, BB
Abnormal troponin:
-acute, non-ischemic myocardial injury in setting of CHF exacerbation
-LV function WNL on echo
Paroxysmal A fib, now also with rate controlled atrial flutter (typical)
-continue metoprolol
-continue Eliquis for OAC
NSVT:
-10 beat run
-EF normal
-replaced mag
-continue BB- dose increase limited by hx bradycardia
-follow telemetry
HTN:
-monitor with diuresis
Data:
CT scan 11/28/24: No evidence of central or segmental pulmonary embolism. Distal pulmonary arteries are not well evaluated secondary to motion artifact. Nodular opacities along the right major fissure measuring up to 9.4 mm. There is additional 1.3 cm
nodule within the superior aspect of the right lower lobe. While findings may be infectious/inflammatory malignancy cannot be excluded. Recommend short interval CT chest or PET for further evaluation.
Cath 07/27/23: Right dominant circulation with multiple prior PCI's in the mid RCA, RPL, mid/distal circumflex and large first diagonal, FELLED SEAM OPERATOR CHAINSTITCH of the proximal LAD after the origin of the large diagonal, a 60-70% lesion in the proximal circumflex
immediately before the origin of OM1 and a densely calcified, 90% ostial circumflex lesion, now status post successful orbital atherectomy and IVUS guided PCI of both circumflex lesions into the left main coronary artery ([employer]onic [place] 3.5
x 38 RASHEEDA, postdilated with a 4.0 NC balloon throughout and a 4.5 NC balloon in the left main coronary artery) with reduction in both stenoses to 0%, maintaining ZACH-3 flow in the circumflex as well as in the jailed large diagonal.
Physical Exam
Vital Signs/Labs
Vital Signs
Temp Pulse Resp BP Pulse Ox
98.1 F 65 18 125/60 96
11/30/24 07:00 11/30/24 07:50 11/30/24 07:00 11/30/24 07:50 11/30/24 07:00
11/29/24 11/30/24 12/01/24
06:59 06:59 06:59
Actual Weight 82.129 kg 80.995 kg
11/29/24 07:14
Magnesium 1.7 mg/dl (1.6-2.3) 11/29/24 07:14
11/28/24
11:15
Zll-V-Kbvvenjseuf Pept 1570
LAB Results
11/28/24 11/28/24
11:15 18:22
Troponin I 0.068 H* 0.071 H*
Physical Exam
Constitutional: No acute distress
EENT: Moist mucous membranes
Cardiovascular: Pedal edema is absent, Rhythm/rate is irregular, JVD present and Systolic murmur present
Respiratory: Respiratory effort normal and Crackles Present
Neuro/Psych: AO x 3
Data Reviewed
-
Date of Service: November 30, 2024
EKG: Other (Tele: A flutter 60s)
Labs: Labs Reviewed by me
[2024-11-30 08:42] LABS: ALT (SGPT) 78 U/L (0-50); AST (SGOT) 33 U/L (17-59); Albumin 3.4 g/dl (3.5-5.0); Alkaline Phosphatase 57 U/L (38-126); Blood Urea Nitrogen 17 mg/dl (9-20); Calcium 8.5 mg/dl (8.4-10.2); Chloride 95 mmol/L (98-107); Estimated Creatinine Clearance 59 ml/min; Glucose 146 mg/dl (70-99); Magnesium 1.8 mg/dl (1.6-2.3); Potassium 4.5 mmol/L (3.5-5.1); Sodium 138 mmol/L (135-145); Total Protein 5.5 g/dl (6.3-8.2); eGFR > 60.00
--- NOTE | 2024-11-30 10:32 | W.PN.HOSP.TC ---
Today's Communication/Plan
-
continue current care
Assessment / Plan
Assessment / Plan
Gen-AAOx3, NAD
HEENT-NC, AT, anicteric, clear oral mm
Neck-supple, improved JVD
CV-reg, no M, +S1/S2
Lungs-decreased breath sounds bilaterally
Abd-soft, NT, ND
Ext-improved bilateral lower extremity edema
Musculoskeletal-no cyanosis, clubbing
Skin-warm and dry
Neuro-grossly non-focal
Psych-calm, cooperative
Acute on chronic hypoxic respiratory failure -most likely due to acute heart failure exacerbation in the setting of chronic lung disease. No evidence of pneumonia or pulmonary embolism. CT and chest x-ray reviewed. 1.3 cm lung nodule in the
superior aspect of the right lower lobe noted on CT. Patient's son states this is chronic, recommend outpatient follow-up with pulmonary.
Normally uses nocturnal oxygen 2 L but started using daytime oxygen at home due to increased dyspnea on exertion over the past few days and weeks. Wean down oxygen as able.
COVID/influenza negative.
Acute heart failure with preserved EF exacerbation -presentation with shortness of breath, JVD, lower extremity edema, weight gain, BNP elevation 1570. Not on diuretics at home.
Getting IV Lasix. Cardiology following.
Echocardiogram shows EF 55 to 60%, normal biventricular size and function, mild . Moderate pulmonary hypertension.
COPD without exacerbation -stable. Continue home inhalers. Patient does have a chronic cough.
Chronic pulmonary fibrosis
CAD -underwent cardiac catheterization July 2023 with successful orbital atherectomy of the ostial circumflex, successful PCI of the circumflex into the left main coronary artery. His car dryer is Dr. Angelo Bush.
Troponin elevation noted, 0.068. Suspect acute nonischemic myocardial injury, possibly due to heart failure.
Elevated transaminases -unclear if due to passive congestion from heart failure versus other etiology. Transaminases coming down.
Macrocytic anemia, chronic -hemoglobin appears to be at baseline. Monitor for now.
Hypothyroidism -levothyroxine.
Hyperlipidemia -hold lipid-lowering agents given elevated transaminases.
Paroxysmal atrial fibrillation -continue Eliquis.
BPH
Essential hypertension with hypertensive urgency -urgency resolved.
History of tobacco dependence -quit 6 months ago.
DNR
Anticipated Discharge: Within 24 hours
Subjective/Interval History
-
Date of Service: November 30, 2024
Patient seen and examined, denies shortness of breath. States he feels better. No complaints.
Objective Data
-
Labs:
Laboratory Results
11/30/24
07:03
Sodium 138
Potassium 4.5
Chloride 95 L
Carbon Dioxide Pending
BUN 17
Creatinine 0.9
Glucose 146 H
Calcium 8.5
Total Bilirubin 1.3
AST 33
ALT 78 H
Alkaline Phosphatase 57
Vital Signs:
Vital Signs
Temp Pulse Resp BP Pulse Ox
98.1 F 65 20 125/60 96
11/30/24 07:00 11/30/24 07:50 11/30/24 07:40 11/30/24 07:50 11/30/24 07:40
I&O
11/29/24 11/30/24 12/01/24
06:59 06:59 06:59
Output Total 2750 / 2750 1725 / 1725
Balance -2750 / -2750 -1725 / -1725
Review of Systems
-
History Source: Patient
All other systems: Reviewed and negative
[2024-11-30] MEDS: MIRALAX 17 GRAMS PO (11:07)
[2024-11-30] MEDS: COLACE 100 MG PO ×2 (11:07→19:29)
[2024-11-30 11:25] LABS: Carbon Dioxide 41 mmol/L (22-30)
--- NOTE | 2024-11-30 15:02 | CM ---
Received consult for patient to reddy the cost of Farxiga vrs Jardiance 10 mg 1x a day. Placed a call to [facility] and spoke with a pharmacist named, Bernie, who stated that patient has no coverage for Farxiga however Jardiance 10 mg is a 10
dollar c0-pay.
Met with patient to obtain information for assessment. Patient stated that he lives with his in a two story home with no steps to enter. He described himself as independent with his ADLs, personal care, dressing and bathing. He can do household
chores, cook, clean and do laundry. Patient drives and can get himself to his appointments and do all of his own shopping. Patient wears o2 at night/as needed. No other DME. No VN in the past and he has not been to a SNF.
Patient has a prescription plan and uses, [facility] for all of his medications.
Patient's PCP is, Pina Fuentes.
Plan: Case management will continue to follow and assist with discharge planning. Patient would like to return home to his .
[2024-12-01 03:15] VITALS: BP 121/51
[2024-12-01] MEDS: SYNTHROID 150 MCG PO (05:41)
[2024-12-01 06:00] VITALS: BMI 26.7
[2024-12-01] MEDS: SYMBICORT 80/4.5 MCG INHALER 2 PUFF INH (07:18)
[2024-12-01] MEDS: PULMICORT 0.5 MG INH (07:18)
[2024-12-01] MEDS: SPIRIVA RESPIMAT 2.5 MCG 2 PUFF INH (07:19)
[2024-12-01 07:38] LABS: ALT (SGPT) 60 U/L (0-50); AST (SGOT) 28 U/L (17-59); Albumin 3.5 g/dl (3.5-5.0); Alkaline Phosphatase 61 U/L (38-126); Blood Urea Nitrogen 19 mg/dl (9-20); Calcium 8.7 mg/dl (8.4-10.2); Chloride 94 mmol/L (98-107); Estimated Creatinine Clearance 53 ml/min; Glucose 158 mg/dl (70-99); Potassium 4.1 mmol/L (3.5-5.1); Sodium 138 mmol/L (135-145); Total Protein 5.7 g/dl (6.3-8.2); eGFR > 60.00
[2024-12-01 07:45] VITALS: BP 122/65
[2024-12-01 07:59] LABS: Carbon Dioxide 41 mmol/L (22-30)
[2024-12-01] MEDS: COLACE 100 MG PO (09:22)
--- NOTE | 2024-12-01 09:23 | W.PN.HOSP.TC ---
Addendum entered and electronically signed by Kevin Herman DO 12/01/24 12:52:
Cleared for discharge by cardiology.
Outpatient follow-up with his own pre fabricator, PCP.
Patient is in need of oxygen on exertion due to pulse oximetry of 91% on room air at rest; 83% on room air with exertion.
Patient was placed on 2L O2 via nasal cannula with saturation of 93%. Oxygen will help to improve hypoxemia.
Patient is mobile within the home. Albuterol therapy has been discussed and is ineffective in treating hypoxemia-related symptoms.
Oxygen will improve the patient's symptoms.
Original Note:
Today's Communication/Plan
-
Await cardiology input
Assessment / Plan
Assessment / Plan
Gen-AAOx3, NAD
HEENT-NC, AT, anicteric, clear oral mm
Neck-supple, improved JVD
CV-reg, no M, +S1/S2
Lungs-decreased breath sounds bilaterally
Abd-soft, NT, ND
Ext-improved bilateral lower extremity edema
Musculoskeletal-no cyanosis, clubbing
Skin-warm and dry
Neuro-grossly non-focal
Psych-calm, cooperative
Acute on chronic hypoxic respiratory failure -most likely due to acute heart failure exacerbation in the setting of chronic lung disease. No evidence of pneumonia or pulmonary embolism. CT and chest x-ray reviewed. 1.3 cm lung nodule in the
superior aspect of the right lower lobe noted on CT. Patient's son states this is chronic, recommend outpatient follow-up with pulmonary.
Normally uses nocturnal oxygen 2 L but started using daytime oxygen at home due to increased dyspnea on exertion over the past few days and weeks.
Currently on 2 L nasal cannula oxygen. Wean down oxygen as able.
COVID/influenza negative.
Acute heart failure with preserved EF exacerbation -presentation with shortness of breath, JVD, lower extremity edema, weight gain, BNP elevation 1570. Not on diuretics at home.
Getting IV Lasix. Cardiology following. Clinically improved, weight down. Can change to oral Lasix today if okay with cardiology.
Echocardiogram shows EF 55 to 60%, normal biventricular size and function, mild . Moderate pulmonary hypertension.
COPD without exacerbation -stable. Continue home inhalers. Patient does have a chronic cough.
Chronic pulmonary fibrosis
CAD -underwent cardiac catheterization July 2023 with successful orbital atherectomy of the ostial circumflex, successful PCI of the circumflex into the left main coronary artery. His pre fabricator is Dr. Angelo Bush.
Troponin elevation noted, 0.068. Suspect acute nonischemic myocardial injury, possibly due to heart failure.
Elevated transaminases -unclear if due to passive congestion from heart failure versus other etiology. Transaminases coming down.
Macrocytic anemia, chronic -hemoglobin appears to be at baseline. Monitor for now.
Hypothyroidism -levothyroxine.
Hyperlipidemia -hold lipid-lowering agents given elevated transaminases.
Paroxysmal atrial fibrillation -continue Eliquis.
BPH
Essential hypertension with hypertensive urgency -urgency resolved.
History of tobacco dependence -quit 6 months ago.
DNR
Dispo -discharge today if cleared by cardiology.
Anticipated Discharge: Today
Subjective/Interval History
-
Date of Service: December 01, 2024
Patient seen and examined. No complaints.
Objective Data
-
Labs:
Laboratory Results
12/01/24
06:50
Sodium 138
Potassium 4.1
Chloride 94 L
Carbon Dioxide 41 H
BUN 19
Creatinine 1.0
Glucose 158 H
Calcium 8.7
Total Bilirubin 1.1
AST 28
ALT 60 H
Alkaline Phosphatase 61
Vital Signs:
Vital Signs
Temp Pulse Resp BP Pulse Ox
98.1 F 63 18 122/65 97
12/01/24 07:45 12/01/24 07:45 12/01/24 07:45 12/01/24 07:45 08/09/25 07:45
I&O
11/30/24 12/01/24 12/02/24
06:59 06:59 06:59
Intake Total 660 / 660
Output Total 1725 / 1725 2450 / 2450
Balance -1725 / -1725 -1790 / -1790
Review of Systems
-
History Source: Patient
All other systems: Reviewed and negative
[2024-12-01] MEDS: ZESTRIL 5 MG PO (09:24)
[2024-12-01] MEDS: ALDACTONE 12.5 MG PO (09:24)
[2024-12-01] MEDS: THERAGRAN 1 TABLET PO (09:25)
[2024-12-01] MEDS: ELIQUIS 5 MG PO (09:25)
[2024-12-01] MEDS: FARXIGA 10 MG PO (09:25)
[2024-12-01] MEDS: TOPROL XL 12.5 MG PO (09:25)
[2024-12-01] MEDS: PROTONIX 40 MG PO (09:25)
[2024-12-01] MEDS: LASIX 20 MG IV (09:26)
[2024-12-01] MEDS: MIRALAX 17 GRAMS PO (09:26)
--- NOTE | 2024-12-01 10:54 | W.PN.CD ---
Addendum entered and electronically signed by Jennifer Castellanos MD 12/01/24 12:47:
I saw and examined the patient.
The ELASTIC CUTTER's note was reviewed and I agree with the note.
Comment: He is feeling better. On exam irreg irreg lungs cta no le edema. Will send home on new furosemide. Explained appropriate use and fluid restriction of oz.Otherwise as below. Follow up with Dr Bush.
Original Note:
Today's Communication / Plan
-
Stop furosemide 20 mg IV twice daily
Start furosemide 20 mg p.o. daily
BMP in 1 week
Impression / Plan
-
I/P: 84M with CAD (most recent PCI 07/2023), hypertension, dyslipidemia, paroxysmal atrial fibrillation on apixaban, COPD, and former smoker who presented to the emergency department with shortness of breath
Primary dispatcher chief oil: Dr. Bush
SOB, multifactorial
-Underlying lung disease and acute HFpEF. COPD management per primary.
-Oxygen at night
HFpEF, acute on chronic - severe, requiring hospitalization
- Diuresis with furosemide 20 mg IV twice daily, this requires intensive monitoring
- He has reached his home dry weight, transition to furosemide 20 mg daily, BMP in 1 week to primary dispatcher chief oil
- Continue Farxiga and spironolactone
- Trend Daily weight, I's/O, BMP with diuresis
- Heart failure education
Abnormal troponin, nonischemic myocardial injury in the setting of acute heart failure exacerbation
- Peak troponin 0.068
- Chest pain-free
Paroxysmal atrial fibrillation
Atrial flutter, typical
-Continue metoprolol
-Continue apixaban
NSVT
-10 beat run
-LVEF normal
-Replaced mag
-Continue BB, dose increase limited by bradycardia
-Follow telemetry
CAD
- Stable without chest pain
- Cardiac catheterization 07/2023 as below
- Continue medical management with statin, beta-solitario and apixaban (paroxysmal atrial fibrillation)
Aortic stenosis, mild, peak/mean 29.8/15.0 mmHg
Pulmonary hypertension, moderate, diuresis as above
HTN, chronic, stable, follow with diuresis
Data Reviewed:
CT Chest 11/28/24:
No evidence of central or segmental pulmonary embolism. Distal pulmonary arteries are not well evaluated secondary to motion artifact.
Nodular opacities along the right major fissure measuring up to 9.4 mm.
There is additional 1.3 cm nodule within the superior aspect of the right lower lobe.
While findings may be infectious/inflammatory malignancy cannot be excluded. Recommend short interval CT chest or PET for further evaluation.
[facility] 07/27/23:
Right dominant circulation with multiple prior PCI's in the mid RCA, RPL, mid/distal circumflex and large first diagonal,
AIRCRAFT HYDRAULIC EQUIPMENT MECHANIC of the proximal LAD after the origin of the large diagonal, a 60-70% lesion in the proximal circumflex immediately before the origin of OM1
and a densely calcified, 90% ostial circumflex lesion, now status post successful orbital atherectomy and IVUS guided PCI of both circumflex lesions into the left main coronary artery
with reduction in both stenoses to 0%, maintaining ZACH-3 flow in the circumflex as well as in the jailed large diagonal.
Physical Exam
Vital Signs/Labs
Vital Signs
Temp Pulse Resp BP Pulse Ox
98.1 F 65 18 118/60 97
12/01/24 07:45 12/01/24 09:26 12/01/24 07:45 12/01/24 09:26 12/01/24 07:45
11/30/24 12/01/24 12/02/24
06:59 06:59 06:59
Actual Weight 80.995 kg 79.549 kg
11/29/24 07:14
12/01/24 06:50
Magnesium 1.8 mg/dl (1.6-2.3) 11/30/24 07:03
08/06/25
11:15
Qly-T-Bmltmrxnsky Pept 1570
LAB Results
11/28/24 11/28/24
11:15 18:22
Troponin I 0.068 H* 0.071 H*
Physical Exam
Constitutional: No acute distress and Comfortable
EENT: Anicteric and Moist mucous membranes
Cardiovascular: Rhythm & rate is regular and Pedal edema is absent
Respiratory: Respiratory effort normal
GI: Soft, Distention absent, Flat, Non tender and Normal bowel sounds
Neuro/Psych: AO x 3
Other: Skin (warm and dry)
Data Reviewed
-
Date of Service: December 01, 2024
Labs: Labs Reviewed by me
Old Records: Reviewed
[2024-12-01 11:21] VITALS: BP 136/72
--- NOTE | 2024-12-01 12:00 | CM ---
Addendum entered by Carol Billy 12/01/24 13:35:
referral faxed to [facility] and call placed to [facility] at [phone]/fax [phone]. Await response.
Original Note:
Patient seen at bedside on . Patient has home O2 from [facility] per . she will bring tank with son to transport home. patient for home O2 assessment to complete updated script for home O2. Patient declined VN as did patient. IMM
completed and signed form placed on chart. CM will continue to follow for discharge planning needs.
Plan; home with ; watch for updated home O2 needs/script.
--- NOTE | 2024-12-01 12:50 | W.DS.TRANS ---
DC Summary - Manager Voice
-
Discharge Instructions:
Sleep Apnea Risk High
Discharge Diagnosis/Procedures Acute heart failure exacerbation
Diet 2 Gram Sodium
Activity As tolerated
Driving Restrictions As prior to admission
Bathing Restrictions None
Blood Work BMP in 1 week, results to primary diagnostic imaging manager
Specialty Instructions Weigh Daily
Instructions: *[facility] Heart Failure Instructions
Stand-Alone Forms:
Changes to Home Medications: No
Discharge Medications:
DC Medications w/original date entered in [employer]
apixaban 5 mg tablet (Eliquis) 5 mg PO BID Blood Clot Prevention/Tx 07/26/23
ezetimibe 10 mg tablet 10 mg PO DAILY High Cholesterol 07/26/23
lisinopril 5 mg tablet 5 mg PO DAILY Blood Pressure 07/26/23
omega 4-hqi-tlm-fish oil 1,000 mg (120 mg-180 mg) capsule (Fish Oil) 1 cap PO DAILY Supplement 07/26/23
rosuvastatin 40 mg tablet 40 mg PO DAILY High Cholesterol 07/26/23
metoprolol succinate 25 mg tablet,extended release 24 hr 12.5 mg (1/2 x 25 mg) PO DAILY #90 tabs 07/28/23
pantoprazole 40 mg tablet,delayed release 40 mg PO DAILY #30 tabs 07/28/23
acetaminophen 325 mg tablet (Tylenol) 650 mg PO Q6HPRN PRN mild pain 03/09/24
fluticasone fur. 100 mcg-umeclid 62.5 mcg-vilant 25 mcg inhalat.powder (Trelegy Ellipta) 1 inh inhalation R DAILY Lung/Breathing Issues 03/09/24
levothyroxine 150 mcg tablet (Synthroid) 150 mcg PO DAILY Thyroid 03/09/24
albuterol sulfate 2.5 mg/3 mL (0.083 %) solution for nebulization 2.5 mg inhalation R Q6HPRN PRN sob 11/28/24
budesonide 0.5 mg/2 mL suspension for nebulization 0.5 mg inhalation R BID Lung/Breathing Issues 11/28/24
therapeutic multivitamin 1 tab PO DAILY Supplement 11/28/24
dapagliflozin propanediol 10 mg tablet 10 mg PO DAILY #30 tabs 12/01/24
furosemide 20 mg tablet 20 mg PO DAILY #30 tabs 12/01/24
spironolactone 25 mg tablet 12.5 mg (1/2 x 25 mg) PO DAILY #30 tabs 12/01/24
Home Medication Changes
Pending Results: No
== END 2024-12-01 14:01 | disposition home or self-care (01) | DRG 291 ==
LOC: 4 EAST ACU 18:20
PROVIDERS: Clinical Nurse Specialist Family Health; Nurse Practitioner; Nurse Practitioner Family; ADMITTING PHYSICIAN Hospitalist; CONSULT PHYSICIAN Internal Medicine Cardiovascular Disease; EMERGENCY PHYSICIAN Emergency Medicine; FAMILY PHYSICIAN Family Medicine
DX: I11.0 Hypertensive heart disease with heart failure (principal); I50.33 Acute on chronic diastolic (congestive) heart failure; J96.21 Acute and chronic respiratory failure with hypoxia; I47.20 Ventricular tachycardia, unspecified; J84.10 Pulmonary fibrosis, unspecified; I16.0 Hypertensive urgency; I48.0 Paroxysmal atrial fibrillation; I25.10 Atherosclerotic heart disease of native coronary artery without angina pectoris; E03.9 Hypothyroidism, unspecified; N40.0 Benign prostatic hyperplasia without lower urinary tract symptoms; E78.00 Pure hypercholesterolemia, unspecified; J44.9 Chronic obstructive pulmonary disease, unspecified; I27.20 Pulmonary hypertension, unspecified; I5A Non-ischemic myocardial injury (non-traumatic); R74.01 Elevation of levels of liver transaminase levels; D53.9 Nutritional anemia, unspecified; R91.1 Solitary pulmonary nodule; K21.9 Gastro-esophageal reflux disease without esophagitis; Z66 Do not resuscitate; Z95.5 Presence of coronary angioplasty implant and graft; Z79.01 Long term (current) use of anticoagulants; Z79.51 Long term (current) use of inhaled steroids; Z79.890 Hormone replacement therapy; Z99.81 Dependence on supplemental oxygen; Z87.891 Personal history of nicotine dependence
CPT/HCPCS: 70450; 71046; 71275; 80053; 81003; 81015; 82607; 83735; 83880; 84484; 85025; 87502; 87811; 93005; 93306; 94640; 97162; 97530; 99285; 99406; Q9950; Q9967

== ENCOUNTER 2025-01-03 10:08 | Emergency (ER) | payer OTHER, SELFPAY ==
[2025-01-03 10:10] VITALS: BP 128/74
--- NOTE | 2025-01-03 10:26 | ED.GENMED ---
History of Present Illness
General
Chief Complaint: Dizziness
Time Seen by Provider: 01/03/25 10:26
History of Present Illness
History of Present Illness:
FOCUSED PAST MEDICAL HISTORY
- The patient has a history of HFpEF and COPD and CAD, transaminases have been slightly elevated
REVIEW OF OLD RECORDS
- The patient was admitted with acute heart failure with preserved ejection fraction exacerbation November 2024
- CAT scan of brain 11/28/2024 showed no acute abnormality
- CAT scan of chest PE study was negative for PE but nodules noted
Note:
CHIEF COMPLAINT(S)
Rash, weakness, dizziness, joint pain.
HISTORY OF PRESENT ILLNESS
The patient is an 84-year-old male who presents with a rash, weakness, dizziness, and joint pain. The patient reports that these symptoms began after discontinuing the medication ezetimibe (Zetia) four days ago. The rash described is non-pruritic
(not itchy) but is causing concern. The patient also mentions experiencing weakness and dizziness, persisting despite stopping the medication. The patient has been on ezetimibe for several years with no prior issues. There are no recent falls or
injuries reported.
PAST MEDICAL AND SURGICAL HISTORY
The patient had a left hip arthroplasty in 2021.
CHRONIC MEDICAL CONDITIONS SIGNIFICANTLY AFFECTING CARE
The patient is on anticoagulation therapy with apixaban (Eliquis).
ADDITIONAL HISTORY OBTAINED FROM SOURCES OTHER THAN THE PATIENT
According to reviewed external records, the patient was evaluated in the Emergency Room approximately one month ago. A computed tomography scan of the brain and chest was conducted, and no significant findings were noted.
MEDICATIONS
The patient is currently taking apixaban (Eliquis) and has recently discontinued ezetimibe (Zetia) on his own.
PHYSICAL EXAM
General: Alert, no acute distress.
Skin: Warm, dry. There is very faint erythema noted to the extremities which is barely perceptible and described as nonpruritic
Head: Normocephalic, atraumatic.
Neck: Supple, trachea midline.
Eye, Ears, Nose, Mouth and Throat: Oral mucosa moist.
Cardiovascular: Normal peripheral perfusion, No edema. Irregular rhythm
Respiratory: Respirations are non-labored.
Gastrointestinal: Abdomen nondistended.
Back: Normal range of motion, Normal alignment.
Musculoskeletal: Normal range of motion, normal strength.
Neurological: Alert and oriented to person, place, time, and situation, No focal neurological deficit observed.
Psychiatric: Cooperative, appropriate mood & affect.
PLAN
1. Obtain blood work, including C-reactive protein (CRP) levels, to assess for inflammation or any potential underlying cause of symptoms.
2. Monitor for changes in symptoms following discontinuation of ezetimibe.
3. Follow-up for potential referral based on blood work and clinical findings.
DIFFERENTIAL DIAGNOSIS
The Differential Diagnosis includes, in no particular order and is not limited to:
1. Drug-induced rash or reaction
2. Viral exanthem
3. Autoimmune disorder (e.g., lupus, rheumatoid arthritis)
4. Systemic inflammatory response
5. Hypersensitivity vasculitis
6. Erythema multiforme
7. Dermatitis
8. Anemia-induced dizziness
9. Medication side effects (apixaban)
10. Polyarthritis or possible gout
LABS
- The white blood cell count is normal, hemoglobin 12.2, potassium is slightly high at 5.5 with no reported hemolysis. Kidney function is normal liver numbers and CK are both normal lipase normal.
UPDATE
-SUMMARY OF ENCOUNTER
The patient, an 84-year-old male, presented to the emergency department with a rash, weakness, dizziness, and joint pain, which he experienced after stopping the medication ezetimibe four days ago. The patient has a history of being on ezetimibe for
several years without prior issues. He also has a history of left hip arthroplasty and is currently on apixaban for anticoagulation therapy. During the visit, blood work was performed, indicating slightly elevated potassium levels, which warranted
treatment. The emergency department administered IV fluids to the patient, resulting in significant improvement in his symptoms. The elevated potassium levels do not appear to be related to any acute process. There is no acute indication for
hospitalization, and the patient reports his symptoms have improved with IV fluid administration.
DISPOSITION
Discharge.
ASSESSMENT
Recent discontinuation of ezetimibe potentially related to symptoms of rash, weakness, dizziness, and joint pain. Slight hyperkalemia noted, likely chronic and not indicative of acute process. Dehydration suspected.
EMERGENCY TREATMENTS ADMINISTERED
IV fluids were administered, and medication was given to lower potassium levels.
PLAN
1. Discharge the patient with advice to avoid ezetimibe until consultation with a manager video games.
2. Continue monitoring potassium levels due to slight elevation and history of fluctuation.
3. Encourage hydration, especially given diuretic use (furosemide).
4. Follow-up with manager video games for further evaluation of medication regimen.
INDEPENDENT REVIEW OF LABS AND INTERPRETATION OF TESTS
My independent review of blood work is normal overall except for a slightly elevated potassium level.
PATIENT EDUCATION AND COUNSELING
Advised the patient about the potential effects of dehydration considering diuretic use and the possible link between ezetimibe discontinuation and symptoms. Instructed to hydrate adequately and resume previous medication only upon specialists
advice.
FOLLOW-UP INSTRUCTIONS
Follow up with manager video games to reevaluate ezetimibe use and management of potassium levels.
MEDICATION RECONCILIATION
No prescription provided during the visit. The patient continues on furosemide and apixaban.
MEDICAL DECISION MAKING
- Number and Complexity of Problems Addressed: Chronic conditions affecting care include history of left hip arthroplasty treated in 2021 and anticoagulation therapy with apixaban.
- Differential Diagnosis includes:
1. Drug-induced rash or reaction
2. Viral exanthem
3. Autoimmune disorder (e.g., lupus, rheumatoid arthritis)
4. Systemic inflammatory response
5. Hypersensitivity vasculitis
6. Erythema multiforme
7. Dermatitis
8. Anemia-induced dizziness
9. Medication side effects (apixaban)
10. Polyarthritis or possible gout
- Data:
Category 1:
- Blood work was ordered and reviewed.
- My independent review shows normal findings with slightly elevated potassium.
Category 2:
- Consultation advice given to follow up with manager video games.
- Risk:
- Prescription drug management is involved due to chronic use of diuretics and anticoagulants.
- Consideration of Admission/Observation: Escalation of care including admission/observation was considered given the complexity and risk of the patients presenting complaint, exam findings, and/or their underlying comorbidities. However, ultimately
I feel the patient is safe for outpatient management with close follow-up. Reasoning: Work-up reassuring, does not reveal any acute life/organ-threatening processes, patients symptoms well controlled upon reevaluation, reexamination is reassuring,
vitals are stable, patient agreeable with discharge, reliable for follow-up.
DIAGNOSIS
1. Potential drug-induced reaction due to ezetimibe discontinuation (R21 - Rash and other nonspecific skin eruption).
2. Hyperkalemia, unspecified (E87.5 - Hyperkalemia).
Of note, the patient does feel improved after he was given 500 mL of saline
Phy Exam
Physical Exam
Physical Exam:
See HPI
Course
Orders/Labs/Results
Orders:
Orders
01/03/25 10:28
0.9% Sodium Chloride 1000 ml [Nss] 1,000 ml IV BOLUS
01/03/25 10:43
CRP [C-Reactive Protein] Urgent
Complete Blood Count/With Diff Urgent
Comprehensive Metabolic Panel Urgent
Lipase Urgent
Total CK [Creatine Phosphokinase] Urgent
0.9% Sodium Chloride 500 ml [Nss] 500 ml IV BOLUS
01/03/25 12:09
Sodium Zirconium Cyclosilicate [Lokelma] 10 gram PO NOW STA
Abnormal Lab Results
01/03/25
10:43
RBC 4.00 L 10^6/uL
(4.70-6.10)
Hgb 12.2 L g/dL
(13.0-18.0)
Hct 38.5 L %
(39.0-52.0)
MCV 96.3 H fL
(80.0-94.0)
MCHC 31.7 L g/dL
(33.0-37.0)
MPV 10.9 H fL
(7.4-10.4)
Monocytes % 9.5 H %
(1.7-9.3)
Potassium 5.5 H mmol/L
(3.5-5.1)
BUN 31 H mg/dl
(9-20)
Glucose 107 H mg/dl
(70-99)
01/03/25 10:43
01/03/25 10:43
Vital Signs
Initial and Last Documented VS:
Initial Vital Signs
Temp Pulse Resp BP Pulse Ox
36.8 C 78 16 128/74 98
01/03/25 10:10 01/03/25 10:10 01/03/25 10:10 01/03/25 10:10 01/03/25 10:10
Last Documented Vital Signs
Temp Pulse Resp BP Pulse Ox
36.8 C 71 23 117/53 97
01/03/25 10:10 01/03/25 11:15 01/03/25 11:15 01/03/25 11:00 01/03/25 10:32
*Pulse Oximetry
SaO2: 98
Nasal Cannula flow liters per minute: 2
Patient hypoxic: no
*Critical Care Note
Total Time (30-74mins, 75-104mins- exclusive of procedures): Not Applicable
ED Attending Note
-
Portions of this chart may have been created with voice recognition software.� Occasional wrong word or��sound alike� substitutions may have occurred due to the inherent limitations of voice recognition software.
Discharge Plan
Departure
Prescriptions:
No Action
lisinopril 5 mg Tablet
5 mg PO DAILY
Eliquis 5 mg Tablet
5 mg PO BID
ezetimibe 10 mg Tablet
10 mg PO DAILY
Patient Comments:
pt has stopped taking this x 4 days
rosuvastatin 40 mg Tablet
40 mg PO DAILY
omega 0-spx-yvf-fish oil [Fish Oil] 1,000 mg (120 mg-180 mg) Capsule
1 cap PO DAILY
pantoprazole 40 mg Tablet,Delayed Release (Dr/Ec)
40 mg PO DAILY Qty: 30 5RF
metoprolol succinate 25 mg Tablet Extended Release 24 Hr
12.5 mg PO DAILY Qty: 90 5RF
acetaminophen [Tylenol] 325 mg Tablet
650 mg PO Q6HPRN PRN (Reason: mild pain)
levothyroxine [Synthroid] 150 mcg Tablet
150 mcg PO DAILY
Trelegy Ellipta 100-62.5-25 mcg Blister With Device
1 inh INHALATION R DAILY
albuterol sulfate 2.5 mg /3 mL (0.083 %) Solution For Nebulization
2.5 mg INHALATION R Q6HPRN PRN (Reason: sob)
therapeutic multivitamin Tablet
1 tab PO DAILY
budesonide 0.5 mg/2 mL Suspension For Nebulization
0.5 mg INHALATION R BID
spironolactone 25 mg Tablet
12.5 mg PO DAILY Qty: 30 0RF
furosemide 20 mg Tablet
20 mg PO DAILY Qty: 30 0RF
dapagliflozin propanediol 10 mg Tablet
10 mg PO DAILY Qty: 30 0RF
Referrals:
UNKNOWN - PT NOT,INTERVIEWE [Family Provider]
Interventions
Interventions:
*Risk Screen - Suicide Last Done: 01/03/25 10:10
*General Assessment Last Done: 01/03/25 10:30
*Neglect/Abuse Screening Last Done: 01/03/25 10:10
*ED- Fall Risk Assessment Last Done: 01/03/25 10:30
*ED COVID-19 Vaccine History Last Done: 01/03/25 10:30
ED- Neurological Assessment Last Done: 01/03/25 10:31
ED- Cardiac Assessment Last Done: 01/03/25 10:31
Discharge Date and Time
Print Language: ETHIOPIAN
[2025-01-03 10:32] VITALS: BP 135/85
[2025-01-03] MEDS: NSS 500 IV (10:48)
[2025-01-03 10:57] LABS: Hematocrit 38.5 % (39.0-52.0); Hemoglobin 12.2 g/dL (13.0-18.0); Mean Corp Hgb Conc. 31.7 g/dL (33.0-37.0); Mean Corpuscular Volume 96.3 fL (80.0-94.0); Nucleated Red Blood Cells % 0 % (-); Platelet Count 163 10^3/uL (130-400); Red Cell Dist. Width 14.2 % (11.5-14.5)
[2025-01-03 11:00] VITALS: BP 117/53
[2025-01-03 11:42] LABS: ALT (SGPT) 23 U/L (0-50); AST (SGOT) 37 U/L (17-59); Albumin 4.2 g/dl (3.5-5.0); Alkaline Phosphatase 44 U/L (38-126); Blood Urea Nitrogen 31 mg/dl (9-20); Calcium 9.1 mg/dl (8.4-10.2); Carbon Dioxide 28 mmol/L (22-30); Chloride 105 mmol/L (98-107); Glucose 107 mg/dl (70-99); Lipase 128 U/L (23-300); Potassium 5.5 mmol/L (3.5-5.1); Sodium 139 mmol/L (135-145); Total Protein 6.8 g/dl (6.3-8.2); eGFR > 60.00
[2025-01-03 12:00] VITALS: BP 142/68
[2025-01-03] MEDS: LOKELMA 10 GRAM PO (12:27)
[2025-01-03 14:18] LABS: C-Reactive Protein < 5.00 mg/L (0.0-10.00)
== END 2025-01-03 12:48 | disposition home or self-care (01) ==
LOC: EMR 10:08
PROVIDERS: EMERGENCY PHYSICIAN Emergency Medicine
DX: M79.10 Myalgia, unspecified site (principal); R21 Rash and other nonspecific skin eruption; R42 Dizziness and giddiness; M25.50 Pain in unspecified joint; E87.5 Hyperkalemia; Z96.642 Presence of left artificial hip joint; I25.10 Atherosclerotic heart disease of native coronary artery without angina pectoris; I50.32 Chronic diastolic (congestive) heart failure; J44.9 Chronic obstructive pulmonary disease, unspecified; Z79.01 Long term (current) use of anticoagulants
CPT/HCPCS: 96360; 99284; 80053; 82550; 83690; 85025; 86140

== ENCOUNTER → 2025-03-07 11:24 | Outpatient (REF) | payer OTHER, SELFPAY | LOC: HWRAD 11:24 | PROVIDERS: ATTENDING PHYSICIAN Internal Medicine Critical Care Medicine; FAMILY PHYSICIAN Family Medicine | DX: R91.1 Solitary pulmonary nodule (principal) | CPT/HCPCS: 71250 ==

== ENCOUNTER 2025-04-15 21:01 | Inpatient (IN) | payer OTHER, SELFPAY ==
[2025-04-15] VITALS (8 sets, daily range): BP systolic 139–174; BP diastolic 73–103; BMI 25.9; BMI 25.4
[2025-04-15 14:04] LABS: Hematocrit 36.3 % (39.0-52.0); Hemoglobin 11.4 g/dL (13.0-18.0); Mean Corp Hgb Conc. 31.4 g/dL (33.0-37.0); Mean Corpuscular Volume 95.8 fL (80.0-94.0); Nucleated Red Blood Cells % 0 % (-); Platelet Count 147 10^3/uL (130-400); Red Cell Dist. Width 15.5 % (11.5-14.5)
[2025-04-15 14:20] LABS: ALT (SGPT) 39 U/L (0-50); AST (SGOT) 44 U/L (17-59); Albumin 4.0 g/dl (3.5-5.0); Alkaline Phosphatase 73 U/L (38-126); Blood Urea Nitrogen 16 mg/dl (9-20); Calcium 8.8 mg/dl (8.4-10.2); Carbon Dioxide 32 mmol/L (22-30); Chloride 102 mmol/L (98-107); Glucose 90 mg/dl (70-99); Potassium 4.6 mmol/L (3.5-5.1); Sodium 138 mmol/L (135-145); Total Protein 6.5 g/dl (6.3-8.2); eGFR > 60.00
[2025-04-15 14:28] LABS: COVID-19 Antigen Negative (Negative); Troponin I 0.024 ng/ml
--- NOTE | 2025-04-15 17:30 | ED.GENMED ---
History of Present Illness
<River Brush MD, Resident - Last Filed: 04/15/25 19:52>
General
Chief Complaint: Weakness
Time Seen by Provider: 04/15/25 16:19
History of Present Illness
History of Present Illness:
84 yo M PMH COPD, HFpEF (diagnosed in 11/2024), paroxsymal atrial fibrillation, HTN, CAD p/w dyspnea, weakness, orthopnea for few weeks duration. He presents today because he felt significantly more fatigued. He reports that he is on 4L O2 at home
at baseline and notices that he desaturates upon exertion.
He denies chest pain, denies URI symptoms, denies change in sputum/cough.denies hemoptysis. denies headache.
denies immobilization, denies surgeries, denies any known hx of malignancy.
family is at bedside and report that he does not regularly adhere to his medications
Family also reports that he is actively smoking
Review of Systems
<River Brush MD, Resident - Last Filed: 04/15/25 19:52>
Review of Systems
Constitutional: Reports fatigue
EENT: Reports no symptoms
Respiratory: Reports trouble breathing
Cardiac: Reports no symptoms
ABD/GI: Reports no symptoms
: Reports no symptoms
Musculoskeletal: Reports no symptoms
Neurological: Reports no symptoms
Phy Exam
<River Brush MD, Resident - Last Filed: 04/15/25 19:52>
Physical Exam
Physical Exam:
VS: 156/75; HR 69; RR 19; T 97.9; O2sat 99% on 4L
General: no acute distress
CV: no murmurs on my exam
Pulm: no crackles on my exam, patient coughs upon deep inspiration
Abd: + bowel sounds, no tenderness to palpation
MSK: 1-2+ pitting edema in lower extremities bilaterally
Neuro: AOx3, PERRLA, EOMI, upper motor strength 5/5 b/l; lower motor strength 5/5 b/l
Scores
<Ankur Edmonds MD - Last Filed: 04/16/25 13:16>
Heart Failure Risk
Heart Failure Risk Score: Yes
History of Stroke or TIA: No
History of intubation for respiratory distress: No
Heart rate on ED arrival >/= 110: No
SaO2 <90% on arrival on room air: No
HR >/=110 during 3min walk test (or too ill to perform test): No
ECG has acute ischemic changes: No
Urea >/=12mmol/L (BUN 33.6mg/dL): No
Serum CO2>/=35mmol/L: No
Troponin I or T elevated to ID Level (0.4mg/dL): No
NT-proBNP >/=5,000ng/L (5,000pg/ml): No
HF Risk Score: 0
Admission Status: LOW RISK 2.8% Consider discharge to home with f/u visit to PCP/Field Recruiter
Course
<River Brush MD, Resident - Last Filed: 04/15/25 19:52>
Orders/Labs/Results
Orders:
Orders
04/15/25 13:39
Electrocardiogram (*1) Urgent
Reason for Study: Shortness of Breath
EKG- Treatment ONCE
04/15/25 13:52
COVID-19 Antigen Urgent
Source: Nasal Swab
Complete Blood Count/With Diff Urgent
Comprehensive Metabolic Panel Urgent
NT-proBNP Urgent
Comment: ADD ON
Troponin I Urgent
Influenza A+B Rapid Molecular Urgent
[place] Source: Nasal Swab
Specimen Description:
04/15/25 Dinner
Cholesterol Lowering
At Your Request: Full Participation
Cholesterol Lowering: Sodium, 2 Gram
04/15/25 15:41
Add On- LAB Urgent
Tests Added?: BNP
CR Chest - 2 Views Urgent
Comment:
Reason For Exam: sob, weak
04/15/25 17:29
Add On- LAB Urgent
Tests Added?: D-dimer
04/15/25 18:03
D-Dimer Urgent
04/15/25 18:38
CT Chest PE Study Urgent
Comment:
Reason For Exam: sob/hypoxia with elevated d-dimer
04/15/25 18:49
Furosemide [Lasix] 40 mg IV NOW ONE
04/15/25 18:50
Dexamethasone Sod Phosphate [Decadron] 6 mg IV NOW ONE
04/15/25 19:46
Ipratropium/Albuterol Sulfate [Duoneb] 3 ml INH R NOW ONE
04/15/25 20:38
Admit/Transfer Patient As Directed
Co-Sign Provider:
Level of Care: Inpatient admission
Assign to:: Telemetry
Physician / Group: htay
Diagnosis: acute on chr HFpEF,
Reason for Telemetry: Acute Heart Failure
Date to Stop Telemetry: 04/18/25
Time to Stop Telemetry: 11:00
Reason for Hospitalization: Multifactorial dyspnea due to underlying lung disease and acute HFpEF. COPD
Expected length of stay greater than two midnights?: Yes
ELOS- Estimated Length of Stay in days: 3
I certify the patient meets the requirements for IP care: Yes
04/15/25 20:41
Code Status As Directed
Resuscitation Status: Full Code
04/15/25 22:21
HF DIETARY CONSULT Routine
HF EDUCATOR CONSULT Routine
Comment:
Activity As Directed
Activity Level: With Assistance
Intake/ Output As Directed
Frequency: Per unit guidelines
Patient Education As Directed
Type: CHF folder
Comment: give on admission. Document in Interdisciplinary Education record
Sleep Apnea Assessment by RN As Directed
Comment:
Physician Instructions:
Vital Signs As Directed
Frequency: Other
Additional Instructions:: Q12 or per unit guidelines if more frequent.
Weight As Directed
Frequency: Daily
Type of Scale: Standing Scale
Comment: Daily morning weight. If unable to stand, use balanced bed scale.
Weight As Directed
Frequency: Once
Type of Scale: Standing Scale
Comment: Upon Admission. If unable to stand, use balanced bed scale.
Pulse Ox/cont/shift [RESP] Routine
Quantity: 1
Special Instructions: Daily pulse oximetry at rest. If greater than 92% at rest also obtain pulse oximetry
while ambulating as tolerated.
04/16/25 06:00
Levothyroxine [Synthroid] 150 mcg PO DAILY @ 0600
04/16/25 06:30
Comprehensive Metabolic Panel IN AM
04/16/25 08:00
Apixaban [Eliquis] 5 mg PO BID
Dapagliflozin [Farxiga] 10 mg PO DAILY
Ezetimibe [Zetia] 10 mg PO DAILY
Furosemide [Lasix] 20 mg IV BID AT 0800,1600
Lisinopril [Zestril] 5 mg PO DAILY
Metoprolol Xl [Toprol Xl] 12.5 mg PO DAILY
Rosuvastatin Calcium [Crestor] 40 mg PO DAILY
Spironolactone [Aldactone] 12.5 mg PO DAILY
04/18/25 11:00
DC Protocol for Telemetry ONCE
Abnormal Lab Results
04/15/25 04/15/25
13:52 18:03
RBC 3.79 L 10^6/uL
(4.70-6.10)
Hgb 11.4 L g/dL
(13.0-18.0)
Hct 36.3 L %
(39.0-52.0)
MCV 95.8 H fL
(80.0-94.0)
MCHC 31.4 L g/dL
(33.0-37.0)
RDW 15.5 H %
(11.5-14.5)
MPV 11.0 H fL
(7.4-10.4)
D-Dimer 1.17 H ug/mlFEU
(0.00-0.50)
Carbon Dioxide 32 H mmol/L
(22-30)
04/15/25 13:52
04/15/25 13:52
Vital Signs
Initial and Last Documented VS:
Initial Vital Signs
Temp Pulse Resp BP Pulse Ox
97.9 F 69 19 139/76 98
04/15/25 13:37 04/15/25 13:37 04/15/25 13:37 04/15/25 13:37 04/15/25 13:37
Last Documented Vital Signs
Temp Pulse Resp BP Pulse Ox
98.3 F 64 16 134/57 94
04/16/25 11:20 04/16/25 11:20 04/16/25 11:20 04/16/25 11:20 04/16/25 11:20
<Ankur Edmonds MD - Last Filed: 04/16/25 13:16>
Orders/Labs/Results
Orders:
Orders
04/15/25 13:39
Electrocardiogram (*1) Urgent
Reason for Study: Shortness of Breath
EKG- Treatment ONCE
04/15/25 13:52
COVID-19 Antigen Urgent
Source: Nasal Swab
Complete Blood Count/With Diff Urgent
Comprehensive Metabolic Panel Urgent
NT-proBNP Urgent
Comment: ADD ON
Troponin I Urgent
Influenza A+B Rapid Molecular Urgent
[place] Source: Nasal Swab
Specimen Description:
04/15/25 Dinner
Cholesterol Lowering
At Your Request: Full Participation
Cholesterol Lowering: Sodium, 2 Gram
04/15/25 15:41
Add On- LAB Urgent
Tests Added?: BNP
CR Chest - 2 Views Urgent
Comment:
Reason For Exam: sob, weak
04/15/25 17:29
Add On- LAB Urgent
Tests Added?: D-dimer
04/15/25 18:03
D-Dimer Urgent
04/15/25 18:38
CT Chest PE Study Urgent
Comment:
Reason For Exam: sob/hypoxia with elevated d-dimer
04/15/25 18:49
Furosemide [Lasix] 40 mg IV NOW ONE
04/15/25 18:50
Dexamethasone Sod Phosphate [Decadron] 6 mg IV NOW ONE
04/15/25 19:46
Ipratropium/Albuterol Sulfate [Duoneb] 3 ml INH R NOW ONE
04/15/25 20:38
Admit/Transfer Patient As Directed
Co-Sign Provider:
Level of Care: Inpatient admission
Assign to:: Telemetry
Physician / Group: htay
Diagnosis: acute on chr HFpEF,
Reason for Telemetry: Acute Heart Failure
Date to Stop Telemetry: 04/18/25
Time to Stop Telemetry: 11:00
Reason for Hospitalization: Multifactorial dyspnea due to underlying lung disease and acute HFpEF. COPD
Expected length of stay greater than two midnights?: Yes
ELOS- Estimated Length of Stay in days: 3
I certify the patient meets the requirements for IP care: Yes
04/15/25 20:41
Code Status As Directed
Resuscitation Status: Full Code
04/15/25 22:21
HF DIETARY CONSULT Routine
HF EDUCATOR CONSULT Routine
Comment:
Activity As Directed
Activity Level: With Assistance
Intake/ Output As Directed
Frequency: Per unit guidelines
Patient Education As Directed
Type: CHF folder
Comment: give on admission. Document in Interdisciplinary Education record
Sleep Apnea Assessment by RN As Directed
Comment:
Physician Instructions:
Vital Signs As Directed
Frequency: Other
Additional Instructions:: Q12 or per unit guidelines if more frequent.
Weight As Directed
Frequency: Daily
Type of Scale: Standing Scale
Comment: Daily morning weight. If unable to stand, use balanced bed scale.
Weight As Directed
Frequency: Once
Type of Scale: Standing Scale
Comment: Upon Admission. If unable to stand, use balanced bed scale.
Pulse Ox/cont/shift [RESP] Routine
Quantity: 1
Special Instructions: Daily pulse oximetry at rest. If greater than 92% at rest also obtain pulse oximetry
while ambulating as tolerated.
04/16/25 06:00
Levothyroxine [Synthroid] 150 mcg PO DAILY @ 0600
04/16/25 06:30
Comprehensive Metabolic Panel IN AM
04/16/25 08:00
Apixaban [Eliquis] 5 mg PO BID
Dapagliflozin [Farxiga] 10 mg PO DAILY
Ezetimibe [Zetia] 10 mg PO DAILY
Furosemide [Lasix] 20 mg IV BID AT 0800,1600
Lisinopril [Zestril] 5 mg PO DAILY
Metoprolol Xl [Toprol Xl] 12.5 mg PO DAILY
Rosuvastatin Calcium [Crestor] 40 mg PO DAILY
Spironolactone [Aldactone] 12.5 mg PO DAILY
04/18/25 11:00
DC Protocol for Telemetry ONCE
Abnormal Lab Results
04/15/25 04/15/25
13:52 18:03
RBC 3.79 L 10^6/uL
(4.70-6.10)
Hgb 11.4 L g/dL
(13.0-18.0)
Hct 36.3 L %
(39.0-52.0)
MCV 95.8 H fL
(80.0-94.0)
MCHC 31.4 L g/dL
(33.0-37.0)
RDW 15.5 H %
(11.5-14.5)
MPV 11.0 H fL
(7.4-10.4)
D-Dimer 1.17 H ug/mlFEU
(0.00-0.50)
Carbon Dioxide 32 H mmol/L
(22-30)
04/15/25 13:52
04/15/25 13:52
Vital Signs
Initial and Last Documented VS:
Initial Vital Signs
Temp Pulse Resp BP Pulse Ox
97.9 F 69 19 139/76 98
04/15/25 13:37 04/15/25 13:37 04/15/25 13:37 04/15/25 13:37 04/15/25 13:37
Last Documented Vital Signs
Temp Pulse Resp BP Pulse Ox
98.3 F 64 16 134/57 94
04/16/25 11:20 04/16/25 11:20 04/16/25 11:20 04/16/25 11:20 04/16/25 11:20
<River Brush MD, Resident - Last Filed: 04/15/25 19:52>
MDM/Problems Addressed
Differential Diagnosis Includes:
HF exacerbation, PE, COPD, paroxsymal afib, ACS, pneumonia, anemia, pulmonary HTN
MDM/Problems Addressed:
84 yo M PMH HFpEF, COPD, paroxysmal afib p/w dyspnea orthopnea and weakness in setting of medication nonadherence. He also reports ongoing active smoking.
He reports hypoxemia upon exertion. denies chest pain or change in sputum.
Nonadherence to apixaban is particularly concerning, the patient and family cannot reliably state whether the patient adheres to apixaban.
neurologically, patient appears intact
no apparent risk factors for PE.
proBNP is 4300 up from 1570 in 11/2024, when he was diagnosed with heart failure
his weight today is 77.2 which is similar in weight from his last discharge 77.5kg
Cr 0.9
Flu and covid both negative
Troponin 0.024
EKG afib with PVCs
Plan:
CXR
D-dimer
Ambulate patient and track [id number]
Update:
CXR
1. Moderate cardiomegaly.
2. Severe calcific atherosclerotic plaque in the coronary arteries and thoracic aorta.
3. Mild pulmonary arterial hypertension.
4. Mild scarring in the right mid and lower lung with associated mild right lung volume loss.
5. Moderate to severe hyperinflation of the left lung.
Update:
d-dimer elevated at 1.17
CT Chest PE ordered
will treat with IV furosemide 40mg, IV dexamethasone 6mg, and duonebs to treat respiratory distress due to COPD and/or heart failure exacerbation
Update:
CT Chest PE study negative for Pulmonary embolus.
IMPRESSION:
1. 1.7 cm spiculated part-solid pulmonary nodule in the superior segment of the right lower lobe. Diagnostic possibilities are (1) right lower lobe lung cancer or (2) scarring.
2. Recurrent nodular pleural thickening in the posterolateral right hemithorax adjacent to the nodule extending into the adjacent right major fissure. Diagnostic possibilities are (1) pleural metastatic disease or (2) recurrent pleural
inflammation, infection, or scarring.
3. Mild centrilobular emphysema in the upper lobes.
4. Severe calcific atherosclerotic plaque in the coronary arteries and thoracic aorta.
5. Moderate cardiomegaly.
6. Mild pulmonary arterial hypertension.
7. Small hiatal hernia.
8. 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
Dispo: admit to hospitalist
<River Brush MD, Resident - Last Filed: 04/15/25 19:52>
*Pulse Oximetry
SaO2: 99
Nasal Cannula flow liters per minute: 3.5
Patient hypoxic: no
*Critical Care Note
Total Time (30-74mins, 75-104mins- exclusive of procedures): Not Applicable
ED Attending Note
<River Brush MD, Resident - Last Filed: 04/15/25 19:52>
-
Portions of this chart may have been created with voice recognition software.� Occasional wrong word or��sound alike� substitutions may have occurred due to the inherent limitations of voice recognition software.
<Ankur Edmonds MD - Last Filed: 04/16/25 13:16>
ED Attending Note
Patient seen and examined by attending physician: Yes
ED Attending Note:
Patient with history of oxygen dependent COPD and congestive heart failure on Lasix, presents to ED secondary to worsening shortness of breath with exertion and difficulty laying flat at nighttime when he goes to sleep over the past 2 weeks, along
with generalized weakness. Denies chest pain. Denies fever or chills. Patient has chronic cough, but states that his cough is not any more frequent. Denies increased weight gain or increased leg swelling. Denies vomiting or diarrhea. Denies
recent change in medications or diet. Unfortunately, per family, patient has not been compliant with all his home medications. Unable to obtain specifically which medications that he has not been taking. Denies recent travel or surgery. Denies
back pain. Patient states that he has been admitted to the hospital on multiple occasions for similar complaint, per reports frustration over the fact that he is having recurrent symptoms. Unfortunately, patient still continues to smoke.
Physical Exam
General: mild respiratory distress, not acutely ill. afebrile
Head: nc/at. eomi
Neck: supple. normal range of motion.
Heart: s1/s2 regular rate and rhythm
Lungs: mild respiratory distress. mild expiratory wheezing noted bilaterally
Abdomen: normal bowel sounds. not tender.
Neuro: alert and oriented x 3. no focal neurological deficits
Skin: no rash
Psychiatric: well kept. interactive and cooperative
Extremities: LE b/l edema. no calf tenderness.
D-dimer elevated. As such, will obtain CT PE study.
History and exam concerning for worsening shortness of breath with exertional hypoxia, likely secondary to mild fluid overload, as evidenced by chest x-ray and elevated proBNP, along with underlying COPD. As such, patient will be admitted for
further evaluation and treatment.
CT chest PE study report reviewed and discussed with patient.
Discharge Plan
Departure
Patient Disposition: Admit
Date of Disposition: 04/15/25
Time of Disposition: 19:50
Admit to: Telemetry
Presentation/result/management discussed w/ accepting MD/DO: Hospitalist
Condition: Fair
Discharge Problem:
Dyspnea
Interventions
Interventions:
*General Assessment Last Done: 04/15/25 13:38
*Neglect/Abuse Screening Last Done: 04/15/25 13:38
*ED COVID-19 Vaccine History Last Done: 04/15/25 13:38
*ED Influenza Vaccine History Last Done: 04/15/25 13:38
[facility] Risk Assessment Tool Last Done: 04/15/25 20:00
*Risk Screen - Suicide (C-SSRS) Last Done: 04/15/25 13:38
*Nursing Disposition Last Done: 04/15/25 22:31
ED- Cardiac Assessment Last Done: 04/15/25 18:42
ED- Neurological Assessment Last Done: 04/15/25 16:33
ED- Pulmonary Assessment Last Done: 04/15/25 16:33
Discharge Date and Time
Discharge Date/Time: 04/15/25 22:31
[2025-04-15 18:22] LABS: D-Dimer 1.17 ug/mlFEU (0.00-0.50)
[2025-04-15] MEDS: LASIX 40 MG IV (19:24)
[2025-04-15] MEDS: DECADRON 6 MG IV (19:28)
[2025-04-15] MEDS: DUONEB 3 ML INH (20:11)
--- NOTE | 2025-04-15 20:15 | HPS.HSE ---
Family Physician
-
Family Physician: NOT KNOW UNKNOWN - PT DOES
Chief Complaint
-
SoB and weakness
History of Present Illness
84M
HX PMH COPD, HFpEF (diagnosed in 11/2024), Prx AF , HTN, CAD
- pwSoB and weakness for few weeks
- significantly more fatigued today, raising concern for respiratory distress
- reports medication nonadherence
- ongoing active smoking.
Labs
TproBNP 4300.
Troponin 0.024.
EKG AFib with PVCs.
Elevateed DD but NEG CTC for PE
ER Tx
IV alsix 40, IV Decadron 6mg and Nebs
Medical History
Past Medical History
Past Medical History: Reports Other
Additional Past Medical History:
COPD on nocturnal oxygen
Pulmonary fibrosis
Hypothyroidism
Hyperlipidemia
CAD
Paroxysmal atrial fibrillation
Essential hypertension
BPH
Carotid stenosis
Past Surgical History: Reports Other
Additional Past Surgical History:
Hernia repair
Social History
Tobacco: Former Smoker (64-year 1 pack a day quit June 2024)
Alcohol: Former
Drug: None
Personal:
Living: With Family
Employment: Not Employed
Family History
Family History: Not pertinent
Allergies / Home Medications
Allergies reflects when Allergies were last updated in [facility].
Home Medications with original date entered in [facility]
Allergy/Medication List:
Allergies
Allergy/AdvReac Type Severity Reaction Status Date / Time
No Known Allergies Allergy Verified 11/28/24 10:31
Home Medications
apixaban 5 mg tablet (Eliquis) 5 mg PO BID Blood Clot Prevention/Tx 07/26/23
ezetimibe 10 mg tablet 10 mg PO DAILY High Cholesterol 07/26/23
lisinopril 5 mg tablet 5 mg PO DAILY Blood Pressure 07/26/23
omega 2-pvd-lri-fish oil 1,000 mg (120 mg-180 mg) capsule (Fish Oil) 1 cap PO DAILY Supplement 07/26/23
rosuvastatin 40 mg tablet 40 mg PO DAILY High Cholesterol 07/26/23
metoprolol succinate 25 mg tablet,extended release 24 hr 12.5 mg (1/2 x 25 mg) PO DAILY #90 tabs 07/28/23
pantoprazole 40 mg tablet,delayed release 40 mg PO DAILY #30 tabs 07/28/23
acetaminophen 325 mg tablet (Tylenol) 650 mg PO Q6HPRN PRN mild pain 03/09/24
fluticasone fur. 100 mcg-umeclid 62.5 mcg-vilant 25 mcg inhalat.powder (Trelegy Ellipta) 1 inh inhalation R DAILY Lung/Breathing Issues 03/09/24
levothyroxine 150 mcg tablet (Synthroid) 150 mcg PO DAILY Thyroid 03/09/24
albuterol sulfate 2.5 mg/3 mL (0.083 %) solution for nebulization 2.5 mg inhalation R Q6HPRN PRN sob 11/28/24
budesonide 0.5 mg/2 mL suspension for nebulization 0.5 mg inhalation R BID 11/28/24
therapeutic multivitamin 1 tab PO DAILY 11/28/24
Review of Systems
-
Constitutional: Reports No Symptoms
EENT: Reports No Symptoms
Respiratory: Reports See HPI
Cardiac: Reports No Symptoms
Abdomen/GI: Reports No Symptoms
: Reports No Symptoms
Musculoskeletal: Reports No Symptoms
Skin: Reports No Symptoms
Neurological: Reports No Symptoms
Endocrine: Reports No Symptoms
Hematologic/Lymphatic: Reports No Symptoms
Psych: Reports No Symptoms
Physical Exam
Vital Signs
Vital Signs
Temp Pulse Resp BP Pulse Ox
97.9 F 72 28 174/78 100
04/15/25 13:37 04/15/25 19:30 04/15/25 19:30 04/15/25 19:26 04/15/25 19:30
Physical Exam
General: Well Developed, Well Nourished and No Apparent Distress
HEENT: NormoCephalic, Moist mucous membranes and Atraumatic
Respiratory: Clear
Cardiac: S1/S2 and Irregular Rhythm; No Murmur or Rub
GI: Soft, Non Tender, Non Distended and Normal Bowel Sounds; No Organomegaly
Rectal: Deferred by Provider
Musculoskeletal: No Clubbing, No Cyanosis and No Edema
Skin: No Rash
Neuro: Nonfocal/grossly intact
Laboratory Results
-
04/15/25 13:52
04/15/25 13:52
Laboratory Results
Total Bilirubin 1.1 mg/dl (0.2-1.3) 04/15/25 13:52
AST 44 U/L (17-59) 04/15/25 13:52
ALT 39 U/L (0-50) 04/15/25 13:52
Alkaline Phosphatase 73 U/L (38-126) 04/15/25 13:52
Troponin I 0.024 ng/ml 04/15/25 13:52
Impression/Plan
-
Vital Signs
Temp Pulse Resp BP Pulse Ox
97.9 F 72 28 174/78 100
04/15/25 13:37 04/15/25 19:30 04/15/25 19:30 04/15/25 19:26 04/15/25 19:30
Laboratory Tests
11/28/24 04/15/25 04/15/25
11:15 13:52 18:03
WBC 5.3
Hgb 11.4 L
Plt Count 147
D-Dimer 1.17 H
Creatinine 0.9
eGFR > 60.00
Troponin I 0.024
[id number]-Icdhmhdevgc Pept 1570 4300
EKG
ATRIAL FIBRILLATION WITH PREMATURE VENTRICULAR OR ABERRANTLY CONDUCTED
COMPLEXES
ABNORMAL ECG
WHEN COMPARED WITH ECG OF 29-Nov-2024 13:34,
ATRIAL FIBRILLATION HAS REPLACED ATRIAL FLUTTER
Confirmed by MD VASQUEZ STEPHEN B ([id number]) on 04/15/2025 2:04:29 PM
CXR
1. Moderate cardiomegaly.
2. Severe calcific atherosclerotic plaque in the coronary arteries and thoracic aorta.
3. Mild pulmonary arterial hypertension.
4. Mild scarring in the right mid and lower lung with associated mild right lung volume loss.
5. Moderate to severe hyperinflation of the left lung.
CTC PE protocol
1. 1.7 cm spiculated part-solid pulmonary nodule in the superior segment of the right lower lobe.
Diagnostic possibilities are (1) right lower lobe lung cancer or (2) scarring.
2. Recurrent nodular pleural thickening in the posterolateral right hemithorax adjacent to the nodule extending into the adjacent right major fissure.
Diagnostic possibilities are (1) pleural metastatic disease or (2) recurrent pleural inflammation, infection, or scarring.
3. Mild centrilobular emphysema in the upper lobes.
4. Severe calcific atherosclerotic plaque in the coronary arteries and thoracic aorta.
5. Moderate cardiomegaly.
6. Mild pulmonary arterial hypertension.
7. Small hiatal hernia.
8. 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
11/29/24 TTE:
1. Normal biventricular size and systolic function.
2. Ejection fraction is 55-60% by visual assessment.
3. Mild aortic stenosis.
4. Moderate pulmonary hypertension.
5. Compared to prior echo on 04/21/2023, there is now moderate pulmonary hypertension and mild aortic stenosis.
[facility] 07/27/23:
Right dominant circulation with multiple prior PCI's in the mid RCA, RPL, mid/distal circumflex and large first diagonal,
ORNAMENTAL METAL ERECTOR APPRENTICE of the proximal LAD after the origin of the large diagonal, a 60-70% lesion in the proximal circumflex immediately before the origin of OM1
and a densely calcified, 90% ostial circumflex lesion, now status post successful orbital atherectomy and IVUS guided PCI of both circumflex lesions into the left main coronary artery
with reduction in both stenoses to 0%, maintaining ZACH-3 flow in the circumflex as well as in the jailed large diagonal.
Last hospitalist admission: 11/28/2024 - 12/01/2024
DISCHARGE DIAGNOSES:
1. Acute on chronic hypoxic respiratory failure.
2. Acute heart failure with preserved ejection fraction exacerbation.
3. Chronic obstructive pulmonary disease without exacerbation.
4. Coronary artery disease.
5. Elevated transaminases.
ASSESSMENT & PLAN
Pending Rx reconciliation
Multifactorial dyspnea due to underlying lung disease and acute HFpEF. COPD
- plan as below
COPD on nocturnal oxygen
Pulmonary fibrosis HX
-
Acute on chr HFpEF
Preserved renal function
- IV Lasix 20mg BID
- GDMT
- Diuretics: IV Lasix
- BB: Metoprolol XL 12.5 daily
- ACEI/ARB/ARNi: Lisinopril 5 mg daily
- MRA: Spironolactone 12.5mg daily
- SGLT2i: Dapagliflozin 10 mg daily.
Daily weight, I's/O, BMP with diuresis
CBC acrd Cs
Abnormal TPNI
- Chest pain-free
- suspect NIMI due to Acute HF
- Trend TPNI till peak
Paroxysmal AF
Atrial flutter, typical
- STUDENT ACCOUNTS MANAGER Metoprolol XL
- STUDENT ACCOUNTS MANAGER Apixaban
HX CAD
- stable on medical management with statin, beta-solitario and apixaban (paroxysmal atrial fibrillation)
HX Aortic stenosis, mild, peak/mean 29.8/15.0 mmHg
Pulmonary hypertension, moderate, diuresis as above
Hypothyroidism
Hyperlipidemia
PH
Carotid stenosis
DVT Px:on STUDENT ACCOUNTS MANAGER Apixaban
Code: Full code
IP TLM
[2025-04-16 02:51] VITALS: BP 129/77
[2025-04-16] MEDS: SYNTHROID 150 MCG PO (05:53)
[2025-04-16 06:00] VITALS: BMI 25.3
[2025-04-16 07:22] LABS: ALT (SGPT) 38 U/L (0-50); AST (SGOT) 40 U/L (17-59); Albumin 4.3 g/dl (3.5-5.0); Alkaline Phosphatase 75 U/L (38-126); Blood Urea Nitrogen 20 mg/dl (9-20); Calcium 9.1 mg/dl (8.4-10.2); Carbon Dioxide 34 mmol/L (22-30); Chloride 98 mmol/L (98-107); Estimated Creatinine Clearance 53 ml/min; Glucose 143 mg/dl (70-99); Potassium 5.0 mmol/L (3.5-5.1); Sodium 139 mmol/L (135-145); Total Protein 6.8 g/dl (6.3-8.2); eGFR > 60.00
[2025-04-16] MEDS: ZETIA 10 MG PO (07:23)
[2025-04-16] MEDS: FARXIGA 10 MG PO (07:23)
[2025-04-16] MEDS: ALDACTONE 12.5 MG PO (07:23)
[2025-04-16] MEDS: ELIQUIS 5 MG PO ×2 (07:23→20:05)
[2025-04-16] MEDS: TOPROL XL 12.5 MG PO (07:23)
[2025-04-16] MEDS: ZESTRIL 5 MG PO (07:23)
[2025-04-16] MEDS: CRESTOR 40 MG PO (07:23)
[2025-04-16] MEDS: LASIX 20 MG IV (07:24)
[2025-04-16 07:43] VITALS: BP 147/67
--- NOTE | 2025-04-16 08:26 | CON.CAR ---
Consultation
Consultation Request
Date/Time Consultation Requested: 04/16/25, 7am
Date/Time Consultation Performed: 04/16/25, 730am
Requesting Provider: Moises
Performing Provider: Demarcus
Reason for Consultation: acute HF
Medical History
-
Chief Complaint: SOB, weakness
History of Present Illness:
84 yo male with chronic HFPEF, CAD (most recent PCI 07/2023), hypertension, dyslipidemia, paroxysmal atrial fibrillation on apixaban, COPD, and former smoker who presented to the emergency department with shortness of breath, weakness.
Past Medical History
Past Medical History: Arrhythmias (paroxysmal A fib), CAD, CHF (chronic HFPEF), HTN and Hypercholesterolemia
Past Surgical History: Cardiac (RASHEEDA to Lcx 2023)
Social History
Tobacco: Former Smoker
Family History
Family History: Early CAD (none)
Allergies / Home Medications
Allergy/AdvReac Type Severity Reaction Status Date / Time
No Known Allergies Allergy Verified 01/03/25 10:13
�Medication �Instructions �Recorded �Confirmed �Type
apixaban 5 mg tablet (Eliquis) 5 mg PO BID Blood Clot 07/26/23 04/15/25 History
Prevention/Tx
ezetimibe 10 mg tablet 10 mg PO QPM High Cholesterol 07/26/23 04/15/25 History
lisinopril 5 mg tablet 5 mg PO QPM Blood Pressure 07/26/23 04/15/25 History
rosuvastatin 40 mg tablet 40 mg PO DAILY High Cholesterol 07/26/23 04/15/25 History
pantoprazole 40 mg tablet,delayed 40 mg PO DAILY #30 tabs 07/28/23 04/15/25 Rx
release
fluticasone fur. 100 mcg-umeclid 1 inh inhalation R DAILY 03/09/24 04/15/25 History
62.5 mcg-vilant 25 mcg Lung/Breathing Issues
inhalat.powder (Trelegy Ellipta)
levothyroxine 150 mcg tablet 150 mcg PO NOON Thyroid 03/09/24 04/15/25 History
(Synthroid)
albuterol sulfate 2.5 mg/3 mL 2.5 mg inhalation R BID 11/28/24 04/15/25 History
(0.083 %) solution for nebulization
budesonide 0.5 mg/2 mL suspension 0.5 mg inhalation R BID 11/28/24 04/15/25 History
for nebulization Lung/Breathing Issues
acetaminophen 650 mg 1,300 mg PO [id number] PRN mild pain 04/15/25 04/15/25 History
tablet,extended release (Tylenol
Arthritis Pain)
albuterol sulfate 90 mcg/actuation 1 puff inhalation R Q6HPRN PRN sob 04/15/25 04/15/25 History
aerosol inhaler
aspirin 81 mg tablet,delayed 81 mg PO MOWESA 04/15/25 04/15/25 History
release
azithromycin 250 mg tablet 250 mg PO MOWEFR 04/15/25 04/15/25 History
dapagliflozin propanediol 10 mg 10 mg PO DAILY 04/15/25 04/15/25 History
tablet (Farxiga)
furosemide 20 mg tablet 20 mg PO QPM 04/15/25 04/15/25 History
meclizine 25 mg tablet 25 mg PO DAILY PRN dizziness 04/15/25 04/15/25 History
svpkhacecnuh-kyviqhlb-rjfpqg tablet 1 tab PO DAILY 04/15/25 04/15/25 History
omega 6-oej-shk-fish oil 1,200 mg 1 cap PO DAILY 04/15/25 04/15/25 History
(144 mg-216 mg) capsule (Fish Oil)
Review of Systems
-
All other systems: Negative unless noted
Constitutional: Fatigue
Respiratory: Trouble Breathing
Physical Exam
Vital Signs
Temp Pulse Resp BP Pulse Ox
98.2 F 65 16 147/67 97
04/16/25 07:43 04/16/25 07:43 04/16/25 07:43 04/16/25 07:43 04/16/25 07:43
Lab Results
04/15/25 13:52
04/16/25 06:30
Troponin I 0.024 ng/ml 04/15/25 13:52
Jxl-K-Xhlearypqnp Pept 4300 pg/ml 04/15/25 13:52
Physical Exam
General: Well Developed and Well Nourished
HEENT: Anicteric
Respiratory: Clear and Non Labored Respirations
Cardiac: S1/S2 (normal), Irregular Rhythm, Murmur (II/ systolic murmur at RUSB), Peripheral Edema (trace LE) and JVD (present)
Musculoskeletal: No Clubbing and No Cyanosis
Skin: Warm and Dry
Neuro: Awake and Alert
Psych: Calm
Impression / Plan
-
84M with CAD (most recent PCI 07/2023), hypertension, dyslipidemia, paroxysmal atrial fibrillation on apixaban, COPD, and former smoker who presented to the emergency department with shortness of breath
Primary underwriter mortgage loan: Dr. Bush
SOB, multifactorial
-Underlying lung disease and acute HFpEF.
HFpEF, acute on chronic - severe, requiring hospitalization for IV diuresis and monitoring of labs, tele
-echo 11/2024: EF 55-60%, mild
-likely need to reset dry weight, as he is below previous dry weight
-takes lasix 20mg daily at home--suspect will need to increase to 40mg
-diurese with lasix 40mg IV bid
-Continue Farxiga and spironolactone
Paroxysmal atrial fibrillation--per outpatient notes, seems to be spending more time in A fib--burden on Zio 01/2025 was 44%
Atrial flutter, typical
-Continue metoprolol XL 12.5mg daily
-Continue apixaban 5mg bid
CAD
- Stable without chest pain
- Cardiac catheterization 07/2023 as below
- Continue medical management with statin, beta-solitario and apixaban (paroxysmal atrial fibrillation)
Aortic stenosis, mild, peak/mean 29.8/15.0 mmHg
Pulmonary hypertension, moderate, diuresis as above
HTN, chronic, stable, follow with diuresis
Data Reviewed:
[facility] 07/27/23:
Right dominant circulation with multiple prior PCI's in the mid RCA, RPL, mid/distal circumflex and large first diagonal,
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
and a densely calcified, 90% ostial circumflex lesion, now status post successful orbital atherectomy and IVUS guided PCI of both circumflex lesions into the left main coronary artery
with reduction in both stenoses to 0%, maintaining ZACH-3 flow in the circumflex as well as in the jailed large diagonal.
Data Reviewed
-
EKG: Tracing Personally Visualized and interpreted (A fib 62)
Medical Tests (Nuc Med, Echo etc): Report Reviewed by me (echo and cath per note)
Labs: Labs Reviewed by me
[2025-04-16 11:20] VITALS: BP 134/57
--- NOTE | 2025-04-16 11:59 | W.PN.HOSP.TC ---
Today's Communication/Plan
-
see A/P
Assessment / Plan
Assessment / Plan
HPI: 84 yo M with PMH COPD, HFpEF (diagnosed in 11/2024), Prx AF, HTN, CAD, p/w SOB and weakness for a few weeks.
Came to the ER due to progressive SOB and weakness.
Admitted to medication nonadherence and continues to smoke.
CT Chest:
1. 1.7 cm spiculated part-solid pulmonary nodule in the superior segment of the right lower lobe. Diagnostic possibilities are (1) right lower lobe lung cancer or (2) scarring.
2. Recurrent nodular pleural thickening in the posterolateral right hemithorax adjacent to the nodule extending into the adjacent right major fissure. Diagnostic possibilities are (1) pleural metastatic disease or (2) recurrent pleural
inflammation, infection, or scarring.
3. Mild centrilobular emphysema in the upper lobes.
4. Severe calcific atherosclerotic plaque in the coronary arteries and thoracic aorta.
5. Moderate cardiomegaly.
6. Mild pulmonary arterial hypertension.
7. Small hiatal hernia.
8. 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
A/P:
# Multifactorial dyspnea due to acute on chronic HFpEF and underlying lung disease/COPD
# Acute on chronic hypoxic resp failure
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
Flu/COVID negative
# Acute on chronic HFpEF
Recent echo 11/2024: Normal biventricular size and systolic function. EF 55-60%. Mild aortic stenosis. Moderate pulmonary hypertension.
Cont IV Lasix now at 40mg BID
Cont PHOTOGRAMMETRIC COMPILATION SPECIALIST Toprol XL 12.5 daily, Lisinopril 5 mg daily, Spironolactone 12.5 mg daily
Cont PHOTOGRAMMETRIC COMPILATION SPECIALIST Dapagliflozin 10 mg daily.
Monitor daily weight, I's/O, BMP with diuresis
Card on board
# Incidental lung nodule RLL
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
Pulm and Onc CS
# Elevated d dimer
PE ruled out with CT Chest
Check BL LE US for DVT eval (noted pt on Eliquis PHOTOGRAMMETRIC COMPILATION SPECIALIST but he is not compliant with medications)
# COPD on nocturnal oxygen 4L NC
# h/o Pulmonary fibrosis
# non-MS troponin elevation, suspect due to Acute HF
Trend troponin until peak
# Paroxysmal AF
# Atrial flutter, typical
Cont PHOTOGRAMMETRIC COMPILATION SPECIALIST Metoprolol XL and Apixaban
# HX CAD, stable
Cont medical management with statin, beta-solitario
# HX Aortic stenosis, mild
# Pulmonary hypertension, moderate
# Hypothyroidism
# Hyperlipidemia
# Carotid stenosis
DVT ppx: PHOTOGRAMMETRIC COMPILATION SPECIALIST Apixaban
Code: Full code
total time 51 min
Anticipated Discharge: 24 - 48 hours
Subjective/Interval History
-
Date of Service: April 16, 2025
Objective Data
-
Labs:
Laboratory Results
04/16/25
06:30
Sodium 139
Potassium 5.0
Chloride 98
Carbon Dioxide 34 H
BUN 20
Creatinine 1.0
Glucose 143 H
Calcium 9.1
Total Bilirubin 1.0
AST 40
ALT 38
Alkaline Phosphatase 75
Vital Signs:
Vital Signs
Temp Pulse Resp BP Pulse Ox
36.8 C 64 16 134/57 94
04/16/25 11:20 04/16/25 11:20 04/16/25 11:20 04/16/25 11:20 04/16/25 11:20
I&O
04/15/25 04/16/25 04/17/25
06:59 06:59 06:59
Intake Total 480 / 480
Output Total 1400 / 1400
Balance -920 / -920
Review of Systems
-
History Source: Patient
All other systems: Reviewed and negative
Physical Exam
-
General: Well Developed, Well Nourished, Comfortable, Respiratory Distress and Conversant
HEENT: Normocephalic, Atraumatic, Nose Appears Normal, Ears Appear Normal, Hearing Impaired and Oxygen (4L NC)
Respiratory: Clear to Auscultation, Wheezes (mild) and Non Labored Respirations; Negative Accessory Resp Muscle Use
Cardiac: Regular Rhythm and S1/S2
GI: Soft, Nontender, Nondistended and Normal Bowel Sounds
Skin: Warm and Dry
Neuro: Awake and Alert
Psych: Calm
Data Reviewed
-
CT Scan: Report Reviewed by me
Labs: Labs Reviewed by me
--- NOTE | 2025-04-16 13:05 | CON.PUL ---
Consultation
Consultation Request
Date/Time Consultation Requested: 04/16/25-1, PM
Date/Time Consultation Performed: 04/16/25-1:30 PM
Requesting Provider: hospitalist
Performing Provider: , Dr. Fajardo
Reason for Consultation: , pulmonary nodule, short of breath
Medical History
-
Chief Complaint: , shortness of breath
History of Present Illness:
84-year-old former smoking male [place] immigrant with underlying COPD, pulmonary fibrosis, preserved EF-CHF, PAF, CAD, who presents with shortness breath and weakness. HEART failure-pulmonary consulted for pulmonary nodule, shortness of breath
04/16/25. Patient has been weak and developed progressive shortness of breath over the last several weeks.. He currently does not complain of chest pain, chest congestion, abdominal pain, focal weakness, just generalized weakness.
Past Medical History
Past Medical History: None ( COPD. Fibrosis. CAD/Stent. PAF. Heart failure, preserved EF. Hypothyroid. Hyperlipidemia. BPH. Carotid stenosis. Overweight.)
Social History
Tobacco: Smoker ( 54-ikex-iqzv smoker)
Alcohol: Former
Drug: None
Personal:
Living: With Family
Occupational Exposures: . 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
Environmental Exposures: . No known tuberculosis exposure
Family History
Family History: Reviewed & Not Pertinent (. Mother from breast cancer)
Allergies / Home Medications
Allergies
Allergy/AdvReac Type Severity Reaction Status Date / Time
No Known Allergies Allergy Verified 01/03/25 10:13
Home Medications
�Medication �Instructions �Recorded �Confirmed �Last Taken �Type
apixaban 5 mg tablet (Eliquis) 5 mg PO BID Blood Clot 07/26/23 04/15/25 11/27/24 History
Prevention/Tx
ezetimibe 10 mg tablet 10 mg PO QPM High Cholesterol 07/26/23 04/15/25 12/30/24 History
lisinopril 5 mg tablet 5 mg PO QPM Blood Pressure 07/26/23 04/15/25 11/27/24 History
rosuvastatin 40 mg tablet 40 mg PO DAILY High Cholesterol 07/26/23 04/15/25 11/27/24 History
fluticasone fur. 100 mcg-umeclid 1 inh inhalation R DAILY 03/09/24 04/15/25 11/28/24 History
62.5 mcg-vilant 25 mcg Lung/Breathing Issues
inhalat.powder (Trelegy Ellipta)
levothyroxine 150 mcg tablet 150 mcg PO NOON Thyroid 03/09/24 04/15/25 11/27/24 History
(Synthroid)
albuterol sulfate 2.5 mg/3 mL 2.5 mg inhalation R BID 11/28/24 04/15/25 Unknown History
(0.083 %) solution for nebulization Lung/Breathing Issues
budesonide 0.5 mg/2 mL suspension 0.5 mg inhalation R BID 11/28/24 04/15/25 11/27/24 History
for nebulization Lung/Breathing Issues
acetaminophen 650 mg 1,300 mg PO [id number] PRN mild pain 04/15/25 04/15/25 Unknown History
tablet,extended release (Tylenol
Arthritis Pain)
albuterol sulfate 90 mcg/actuation 1 puff inhalation R Q6HPRN PRN sob 04/15/25 04/15/25 Unknown History
aerosol inhaler
aspirin 81 mg tablet,delayed 81 mg PO MOWESA Blood Clot 04/15/25 04/15/25 Unknown History
release Prevention/Tx
azithromycin 250 mg tablet 250 mg PO MOWEFR Lung/Breathing 04/15/25 04/15/25 Unknown History
Issues
dapagliflozin propanediol 10 mg 10 mg PO DAILY Heart Failure 04/15/25 04/15/25 Unknown History
tablet (Farxiga)
furosemide 20 mg tablet 20 mg PO QPM Fluid 04/15/25 04/15/25 Unknown History
Retention/Swelling
meclizine 25 mg tablet 25 mg PO DAILY PRN dizziness 04/15/25 04/15/25 Unknown History
ulgkvpuntorx-nwlhhfzx-fhtlbt tablet 1 tab PO DAILY Supplement 04/15/25 04/15/25 Unknown History
omega 2-vsl-qpa-fish oil 1,200 mg 1 cap PO DAILY Supplement 04/15/25 04/15/25 Unknown History
(144 mg-216 mg) capsule (Fish Oil)
pantoprazole 40 mg tablet,delayed 40 mg PO DAILY Gastrointestinal 04/16/25 04/15/25 Unknown History
release Issue
Review of Systems
-
Unable to Obtain full review of systems at this time due to: Other ( Per HPI)
Vitals / Labs / Diagnostic Testing
Vital Signs
Temp Pulse Resp BP Pulse Ox
98.3 F 64 16 134/57 94
04/16/25 11:20 04/16/25 11:20 04/16/25 11:20 04/16/25 11:20 04/16/25 11:20
Lab Data
04/15/25 13:52
04/16/25 06:30
Microbiology
04/15/25 13:52 Nasal Swab Influenza Types A & B (JAY) - Final
Negative for Influenza A & B, NAAT
Negative results must be combined with clinical observations
and patient history.
Nucleic Acid Amplification test (NAAT)performed on the
[employer] platform.
Diagnostic Testing:
Physical Exam
-
Exam:
HEENT atraumatic normocephalic and anicteric. Heart was regular without murmur. Chest was clear with diminished breath sounds, prolonged expiratory time, expiratory wheezes and basilar crackles. Integument without rashes or icterus. Neurologic
exam without weakness or numbness. Abdomen soft and nondistended. The patient had no JVD, cyanosis, clubbing, lower extremity edema
Assessment
-
84-year-old former smoking male [place] immigrant with underlying COPD, pulmonary fibrosis, preserved EF-CHF, PAF, CAD, who presents with shortness breath and weakness. HEART failure-pulmonary consulted for pulmonary nodule, shortness of breath
04/16/25.
Ombcsdu-bsyazonraplvmx-rdyrw failure, preserved EF, as well as underlying COPD
CHF-preserved EF.
Pulmonary nodule with pleural abnormalities.
Non MD Troponin elevation
Mild macrocytic anemia-hemoglobin 11.4.
Mild hyperglycemia
Conditions present prior to admission:
COPD.
Nocturnal hypoxemia-uses 4 L of oxygen at night
Fibrosis.
Pulmonary nodule-improved March 2025-CT September 2025
CAD/Stent.
PAF.
Heart failure, preserved EF.
Hypothyroid.
Hyperlipidemia.
BPH.
Carotid stenosis.
Plan
Respiratory decompensation, likely multifactorial including a component of CHF, preserved EF on top of severe COPD
Outpatient records were reviewed, and radiographs including chest x-ray, 3 x CTs of the chest-11/2024, 02/2025 and most recent 03/2025, echocardiogram, pulmonary function tests are summarized below and personally reviewed.
Supplemental oxygen as needed.
Established discharge supplemental oxygen needs-note, patient is on 4 L of oxygen at night
Nebulizers.
One dose of Decadron given 04/15/25-observe off steroids.
Trelegy as an outpatient.
CT chest personally reviewed and compared to 02/2025 and 11/2024-in February. CT was actually improving, however, to my eye, there is slight increase in size of the nodule as well as nodular pleural thickening adjacent-Dr. Fajardo has notified
Jared to add an addendum with official comparison.
Outpatient, consideration towards PET scan and possible bronchoscopy-increased risk with underlying severe COPD
We will ask radiology to convert CT chest to ION format that will help assist in robotic bronchoscopy if needed
Oncology has been consulted as well.
Diuresis as tolerated.
Monitor weight, intake, output, lower extremity edema and renal function.
Replace electrolytes as needed.
Cardiology following-correspondence reviewed
Ongoing smoking cessation counseling.
Nicotine patch if needed.
DVT prophylaxis.
Nutrition.
Early Mobilization.
Reviewed with nursing and primary team
The patient last saw Dr. Ascencio 04/02/25-maintained on Trelogy 100, azithromycin, albuterol, budesonide nebulizers-close outpatient follow-up
Studies:
Chest x-ray 04/15/25-moderate cardiomegaly, severe calcified atherosclerotic plaque in the coronary arteries and thoracic aorta, mild pulmonary artery hypertension, mild scarring in the right mid lung and lower lung porter, mild to severe
hyperinflation of the left lung.
CT chest 04/15/25-comparison made to CT 03/07/[address] 11/28/24-1.7 cm spiculated part solid pulmonary nodule superior segment right lower lobe, recurrent nodular pleural thickening, mild central lobular emphysema
CT chest 11/28/24: negative for pulmonary embolism.� Right major fissure nodule 9.4 mm and right lower lobe nodule 1.3 cm.� There is emphysema.� Per my review there may be some fissural nodularity in that area
CT chest 03/07/25: prior right lower lobe nodule has resolved.� There is a persistent 1.6 cm nodule in the superior segment of the right lower lobe with improved density, but incomplete resolution.� Mild emphysema, severe coronary calcification.�
There is is a small nodule in the right upper lobe image 13 per my review, 4 mm
Echo 11/29/24: Normal biventricular function, mild aortic stenosis 1.7 cm, PA pressure 52.� This is new compared to 2022
Leonardo 08/06/24: FVC 2.06/58%, FEV1 0.78/31%, ratio 38.� There is an 18% improvement in the FEV1 which is insignificant.� Compared to prior spirometry, FEV1 has worsened
PFT 04/06/24: FVC 3.27/89%, FEV1 1.15/45%, ratio 39.� There is a 13% improvement in FVC following bronchodilator.� TLC 5.72/83%, RV 2.22/77%, DLCO 7.66/32%.� Severe obstruction with severe gas exchange defect and bronchodilator response.
nocturnal oximetry 01/25/25: Obtained on 2 L, continues to desaturate to 71%.� Recommended to increase to 4 L.
Data Reviewed
-
PFT: Report reviewed by me
EKG: Report reviewed by me
Radiology: Image personally visualized and interpreted and Report reviewed by me
CT Scan: Image personally visualized and interpreted and Report reviewed by me
Medical Tests (Nuc Med, Echo etc): Report reviewed by me
Labs: Labs reviewed by me
Old Records: Reviewed
Total Time Spent with Patient (in minutes): 65
--- NOTE | 2025-04-16 13:23 | CM ---
patient seen at bedside
IA completed
CM consult compete-Advance Directives given to patient
Lives with his in a 2 story home, 1st floor set up, 0 OSCAR
spoke with patient's
PLOF: Independent
DME: Home oxygen ([employer]),nebulizer
Denies vn/rehab
pcp: [facility] Fuentes
[facility] [place]
PLAN: anticipate home, watch for VN needs, CM to continue to follow
--- NOTE | 2025-04-16 14:45 | CON.ONC ---
Consultation
-
Date Consultation Requested: 04/16/25
Date Consultation Performed: 04/16/25
Requesting Provider: Dr. Yolanda De Leon
Performing Provider: Dr. Charles Marrufo
Reason for Consultation: pulmonary nodule
Impression
Impression
acute on chronic respiratory failure may be multifactorial including HFpEF, COPD under management by pulmonary and cardiology
RLL spiculated pulmonary nodule -present since at least November 2024 CT, also noted on Feb 2025 CT, and 04/15/2025 CT
macrocytosis, anemia
tobacco abuse
Plan
Plan
smoking cessation
defer to pulmonary regarding tissue biopsy for RLL spiculated pulmonary nodule, possible bronchoscopy. Also to consider OP PET
check heme stool, iron studes, b12, folate
Patient History
History of Present Illness
84yo M who presented to ER 04/15/2025 with weakness and SOB. He is a daily tobacco smoker. His influenza/COVID were negative. He is on a DOAC for his cardiac history. His CT chest showed a 1.7 cm spiculated part-solid pulmonary nodule in the
superior segment of the right lower lobe, recurrent nodular pleural thickening in the posterolateral right hemithorax adjacent to the nodule extending into the adjacent right major fissure, mild centrilobular emphysema in the upper lobes, severe
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 His CT chest November 2024 showed nodular opacities
along the right major fissure measuring up to 9.4 mm. There is additional 1.3 cm nodule within the superior aspect of the right lower lobe. His CT chest in Feb 2025 showed a persistent 1.6 cm irregular nodular focus in the superior segment of the
right lower lobe with decreased density.
Afebrile, 3L NC, no hypotension
Past-Medical/Surgical History
PMH CAD, COPD, hiatal hernia, mild aortic stenosis, moderate pulmonary HTN, HFpEF, hypothyroid
PSH RASHEEDA, hernia repair
Social: tobacco use, currently smoking. Former ETOH. Denies recreeational drugs. Lives with , retired.
Family mother breast cancer
Patient Medication
�Medication �Instructions �Recorded �Confirmed �Last Taken �Type
apixaban 5 mg tablet (Eliquis) 5 mg PO BID Blood Clot 07/26/23 04/15/25 11/27/24 History
Prevention/Tx
ezetimibe 10 mg tablet 10 mg PO QPM High Cholesterol 07/26/23 04/15/25 12/30/24 History
lisinopril 5 mg tablet 5 mg PO QPM Blood Pressure 07/26/23 04/15/25 11/27/24 History
rosuvastatin 40 mg tablet 40 mg PO DAILY High Cholesterol 07/26/23 04/15/25 11/27/24 History
fluticasone fur. 100 mcg-umeclid 1 inh inhalation R DAILY 03/09/24 04/15/25 11/28/24 History
62.5 mcg-vilant 25 mcg Lung/Breathing Issues
inhalat.powder (Trelegy Ellipta)
levothyroxine 150 mcg tablet 150 mcg PO NOON Thyroid 03/09/24 04/15/25 11/27/24 History
(Synthroid)
albuterol sulfate 2.5 mg/3 mL 2.5 mg inhalation R BID 11/28/24 04/15/25 Unknown History
(0.083 %) solution for nebulization Lung/Breathing Issues
budesonide 0.5 mg/2 mL suspension 0.5 mg inhalation R BID 11/28/24 04/15/25 11/27/24 History
for nebulization Lung/Breathing Issues
acetaminophen 650 mg 1,300 mg PO [id number] PRN mild pain 04/15/25 04/15/25 Unknown History
tablet,extended release (Tylenol
Arthritis Pain)
albuterol sulfate 90 mcg/actuation 1 puff inhalation R Q6HPRN PRN sob 04/15/25 04/15/25 Unknown History
aerosol inhaler
aspirin 81 mg tablet,delayed 81 mg PO MOWESA Blood Clot 04/15/25 04/15/25 Unknown History
release Prevention/Tx
azithromycin 250 mg tablet 250 mg PO MOWEFR Lung/Breathing 04/15/25 04/15/25 Unknown History
Issues
dapagliflozin propanediol 10 mg 10 mg PO DAILY Heart Failure 04/15/25 04/15/25 Unknown History
tablet (Farxiga)
furosemide 20 mg tablet 20 mg PO QPM Fluid 04/15/25 04/15/25 Unknown History
Retention/Swelling
meclizine 25 mg tablet 25 mg PO DAILY PRN dizziness 04/15/25 04/15/25 Unknown History
rbkmcevixauv-ckyfpmvi-bsdqtd tablet 1 tab PO DAILY Supplement 04/15/25 04/15/25 Unknown History
omega 2-uwz-ajo-fish oil 1,200 mg 1 cap PO DAILY Supplement 04/15/25 04/15/25 Unknown History
(144 mg-216 mg) capsule (Fish Oil)
pantoprazole 40 mg tablet,delayed 40 mg PO DAILY Gastrointestinal 04/16/25 04/15/25 Unknown History
release Issue
Active Medications
Generic Name Dose Route Start Last Admin
Trade Name Freq PRN Reason Stop Dose Admin
Apixaban 5 mg 04/16/25 08:00 04/16/25 07:23
Apixaban (Eliquis) 5 Mg Tablet PO 05/14/25 07:59 5 mg
BID DIAZ Administration
Dapagliflozin 10 mg 04/16/25 08:00 04/16/25 07:23
Dapagliflozin (Farxiga) 10 Mg Tablet PO 05/14/25 07:59 10 mg
DAILY DIAZ Administration
Ezetimibe 10 mg 04/16/25 08:00 04/16/25 07:23
Ezetimibe (Zetia) 10 Mg Tablet PO 05/14/25 07:59 10 mg
DAILY DIAZ Administration
Furosemide 40 mg 04/16/25 16:00
Furosemide 40 Mg (10 Mg/Ml) 4 Ml Vial IV 05/14/25 15:59
BID@0800,1600 DIAZ
Levothyroxine Sodium 150 mcg 04/16/25 06:00 04/16/25 05:53
Levothyroxine 150 Mcg Tablet PO 05/14/25 05:59 150 mcg
DAILY @ 0600 DIAZ Administration
Lisinopril 5 mg 04/16/25 08:00 04/16/25 07:23
Lisinopril 5 Mg Tablet PO 05/14/25 07:59 5 mg
DAILY DIAZ Administration
Metoprolol Succinate 12.5 mg 04/16/25 08:00 04/16/25 07:23
Metoprolol 25 Mg Extended Release Tablet PO 05/14/25 07:59 12.5 mg
DAILY DIAZ Administration
Rosuvastatin Calcium 40 mg 04/16/25 08:00 04/16/25 07:23
Rosuvastatin (Crestor) 20 Mg Tablet PO 05/14/25 07:59 40 mg
DAILY DIAZ Administration
Sodium Chloride 0 flush 04/15/25 23:00
Sodium Chloride 0.9% (Flush) Syringe IV 05/13/25 22:59
PER PROTOCOL DIAZ
Spironolactone 12.5 mg 04/16/25 08:00 04/16/25 07:23
Spironolactone 25 Mg Tablet PO 05/14/25 07:59 12.5 mg
DAILY DIAZ Administration
Review of Systems
-
ROS is notable for HPI, otherwise negative
Physical Exam
-
General: No Apparent Distress
HEENT: Moist Mucous Membranes; Negative Jaundice
Pulmonary: Other (unlabored)
Extremities: Pulses Present
Skin: Warm
Psych: Calm
Labs
Lab Results
WBC 5.3 10^3/uL (4.8-10.8) 04/15/25 13:52
RBC 3.79 10^6/uL (4.70-6.10) L 04/15/25 13:52
Hgb 11.4 g/dL (13.0-18.0) L 04/15/25 13:52
Hct 36.3 % (39.0-52.0) L 04/15/25 13:52
MCV 95.8 fL (80.0-94.0) H 04/15/25 13:52
MCH 30.1 pg (27.0-31.0) 04/15/25 13:52
MCHC 31.4 g/dL (33.0-37.0) L 04/15/25 13:52
RDW 15.5 % (11.5-14.5) H 04/15/25 13:52
Plt Count 147 10^3/uL (130-400) 04/15/25 13:52
MPV 11.0 fL (7.4-10.4) H 04/15/25 13:52
Abs Immat Gran (auto) 0.0 10^3/uL (0-0.05) 04/15/25 13:52
Absolute Neuts (auto) 2.9 10^3/uL (1.4-6.5) 04/15/25 13:52
Absolute Lymphs (auto) 1.6 10^3/uL (1.2-3.4) 04/15/25 13:52
Absolute Monos (auto) 0.4 10^3/uL (0.1-0.6) 04/15/25 13:52
Absolute Eos (auto) 0.3 10^3/uL (0-0.7) 04/15/25 13:52
Absolute Basos (auto) 0.0 10^3/uL (0-0.2) 04/15/25 13:52
Immature Gran % 0.2 % (0-0.5) 04/15/25 13:52
Neutrophils % 55.3 % (42.2-75.2) 04/15/25 13:52
Lymphocytes % 30.1 % (20.5-51.1) 04/15/25 13:52
Monocytes % 8.3 % (1.7-9.3) 04/15/25 13:52
Eosinophils % 5.5 % (0-6) 04/15/25 13:52
Basophils % 0.6 % (0-2) 04/15/25 13:52
Creatinine 1.0 mg/dL (0.7-1.3) 04/16/25 06:30
Vital Signs
Vital Signs
Temp Pulse Resp BP Pulse Ox
98.3 F 64 16 134/57 94
04/16/25 11:20 04/16/25 11:20 04/16/25 11:20 04/16/25 11:20 04/16/25 11:20
[2025-04-16 15:06] VITALS: BP 117/53
[2025-04-16] MEDS: LASIX 40 MG IV (15:28)
[2025-04-16 16:45] LABS: Iron 53 ug/dl (49-181)
[2025-04-16 16:55] LABS: Total Iron Binding Capacity 331 ug/dl (261-462)
[2025-04-16 17:32] LABS: Ferritin 40.0 ng/ml (17.9-464.0)
[2025-04-16 18:04] LABS: Folate > 20.0 ng/ml (2.76-20); Vitamin B12 787 pg/ml (239-931)
[2025-04-16 19:00] VITALS: BP 120/58
[2025-04-16 20:07] LABS: Reticulocyte Count 1.1 % (0.4-2.8)
[2025-04-16 23:00] VITALS: BP 116/46
--- NOTE | 2025-04-17 02:21 | PTCARENOTE ---
Pt. wants to brush teeth in the morning.
[2025-04-17 03:00] VITALS: BP 106/54
[2025-04-17] MEDS: SYNTHROID 150 MCG PO (05:34)
[2025-04-17 07:08] LABS: Hematocrit 33.8 % (39.0-52.0); Hemoglobin 10.8 g/dL (13.0-18.0); Mean Corp Hgb Conc. 32.0 g/dL (33.0-37.0); Mean Corpuscular Volume 95.5 fL (80.0-94.0); Platelet Count 151 10^3/uL (130-400); Red Cell Dist. Width 15.4 % (11.5-14.5)
[2025-04-17 07:30] VITALS: BP 130/60
[2025-04-17 07:32] LABS: Troponin I 0.031 ng/ml
[2025-04-17 08:04] LABS: Blood Urea Nitrogen 31 mg/dl (9-20); Calcium 8.4 mg/dl (8.4-10.2); Carbon Dioxide 36 mmol/L (22-30); Chloride 97 mmol/L (98-107); Estimated Creatinine Clearance 48 ml/min; Glucose 95 mg/dl (70-99); Magnesium 2.2 mg/dl (1.6-2.3); Potassium 3.9 mmol/L (3.5-5.1); Sodium 137 mmol/L (135-145); eGFR > 60.00
[2025-04-17] MEDS: CRESTOR 40 MG PO (09:08)
[2025-04-17] MEDS: ALDACTONE 12.5 MG PO (09:08)
[2025-04-17] MEDS: FARXIGA 10 MG PO (09:08)
[2025-04-17] MEDS: ELIQUIS 5 MG PO (09:08)
[2025-04-17] MEDS: ZESTRIL 5 MG PO (09:09)
[2025-04-17] MEDS: ZETIA 10 MG PO (09:09)
[2025-04-17] MEDS: TOPROL XL 12.5 MG PO (09:09)
[2025-04-17] MEDS: LASIX 40 MG IV (09:10)
--- NOTE | 2025-04-17 09:47 | W.PN.PUL3 ---
Today's Communication / Plan
-
Supplemental O2, weaning down as tolerated while keeping SpO2 88-94%
Home O2 assessment prior to discharge
Diuresis per cardiology
DuoNebs as needed; resume Trelegy upon discharge
Outpatient follow-up with Dr. Ascencio, especially given increased pleural thickening and increased intrafissural (horizontal) nodule
The fact that this nodule is increasing is concerning, however the fact that it is intrafissural may limit biopsy role given risk of pneumothorax - -> this will be ongoing discussion
Patient being prepared for discharge home. No additional recommendations at this time. Pulmonary service will now sign off. Please reconsult if there are any additional questions/concerns, or if patient's respiratory status deteriorates.
Assessment
-
84-year-old former smoking male [place] immigrant with underlying COPD, pulmonary fibrosis, preserved EF-CHF, PAF, CAD, who presents with shortness breath and weakness. HEART failure-pulmonary consulted for pulmonary nodule, shortness of breath
04/16/25.
Kvjusqt-uhamlrunkwjxct-blcll failure, preserved EF, as well as underlying COPD
Acute HFpEF exacerbation
Pulmonary nodule with pleural abnormalities.
Non DE Troponin elevation
Mild macrocytic anemia-hemoglobin 11.4.
Mild hyperglycemia
Conditions present prior to admission:
COPD.
Nocturnal hypoxemia-uses 4 L of oxygen at night
Fibrosis.
Pulmonary nodule-improved March 2025-CT September 2025
CAD/Stent.
PAF.
Heart failure, preserved EF.
Hypothyroid.
Hyperlipidemia.
BPH.
Carotid stenosis.
Plan
Respiratory decompensation, likely multifactorial including a component of CHF, preserved EF on top of severe COPD
He has improved subjectively with respiratory status
Supplemental oxygen as needed to maintain SpO2 88-94%
Established discharge supplemental oxygen needs-note, patient is on 4 L of oxygen at night
Nebulizers.
One dose of Decadron given 04/15/25-observe off steroids.
Trelegy as an outpatient.
CT chest reviewed and compared to 02/2025 and 11/2024-in February. CT was actually improving, however, to my eye, there is slight increase in size of the nodule as well as nodular pleural thickening adjacent-Dr. Fajardo has notified Dr. Coleman to
add an addendum with official comparison.
Outpatient, consideration towards PET scan and possible bronchoscopy-increased risk with underlying severe COPD
Nodule is within horizontal fissure, which may limit biopsy given risk of pneumothorax
Regardless, we will ask radiology to convert CT chest to ION format that will help assist in robotic bronchoscopy if needed
Oncology has been consulted as well.
Diuresis as tolerated.
Monitor weight, intake, output, lower extremity edema and renal function.
Replace electrolytes as needed.
Cardiology following-correspondence reviewed
Ongoing smoking cessation counseling.
Nicotine patch if needed.
DVT prophylaxis.
Nutrition.
Early Mobilization.
The patient last saw Dr. Ascencio 04/02/25-maintained on Trelegy 100, azithromycin, albuterol, budesonide nebulizers-close outpatient follow-up
Patient being prepared for discharge home. No additional recommendations at this time. Pulmonary service will now sign off. Thank you for allowing us to be involved in the care of this patient. Please reconsult if there are any additional
questions/concerns, or if patient's respiratory status deteriorates.
Studies:
Chest x-ray 04/15/25-moderate cardiomegaly, severe calcified atherosclerotic plaque in the coronary arteries and thoracic aorta, mild pulmonary artery hypertension, mild scarring in the right mid lung and lower lung porter, mild to severe
hyperinflation of the left lung.
CT chest 04/15/25-comparison made to CT 03/07/[address] 11/28/24-1.7 cm spiculated part solid pulmonary nodule superior segment right lower lobe, recurrent nodular pleural thickening, mild central lobular emphysema
CT chest 11/28/24: negative for pulmonary embolism.� Right major fissure nodule 9.4 mm and right lower lobe nodule 1.3 cm.� There is emphysema.� Per my review there may be some fissural nodularity in that area
CT chest 03/07/25: prior right lower lobe nodule has resolved.� There is a persistent 1.6 cm nodule in the superior segment of the right lower lobe with improved density, but incomplete resolution.� Mild emphysema, severe coronary calcification.�
There is is a small nodule in the right upper lobe image 13 per my review, 4 mm
Echo 11/29/24: Normal biventricular function, mild aortic stenosis 1.7 cm, PA pressure 52.� This is new compared to 2022
Leonardo 08/06/24: FVC 2.06/58%, FEV1 0.78/31%, ratio 38.� There is an 18% improvement in the FEV1 which is insignificant.� Compared to prior spirometry, FEV1 has worsened
PFT 04/06/24: FVC 3.27/89%, FEV1 1.15/45%, ratio 39.� There is a 13% improvement in FVC following bronchodilator.� TLC 5.72/83%, RV 2.22/77%, DLCO 7.66/32%.� Severe obstruction with severe gas exchange defect and bronchodilator response.
nocturnal oximetry 01/25/25: Obtained on 2 L, continues to desaturate to 71%.� Recommended to increase to 4 L.
Total time spent today was 39 minutes for this encounter. Time includes reviewing laboratory test/imaging results, reviewing pertinent medical records, obtaining and reviewing medical history, performing an appropriate exam, ordering medications,
tests and procedures. Time also includes documentation of this encounter, coordinating patient care and communicating with other healthcare professionals. Total time does not include separately billed tests performed on this date of service.
Subjective Data
-
Date of Service:
Date of Service: April 17, 2025
Chief Complaint: Pulmonary Follow Up
Subjective:
Patient seen today at bedside. No acute events reported overnight. This morning on 3 L/min nasal cannula saturating 100%. Afebrile overnight.
Review of Systems
General: Other (Negative unless mentioned above)
Objective Data
Data Reviewed
Vital Signs / I&O / Oxygen:
Vital Signs
Temp Pulse Resp BP Pulse Ox
98.0 F 59 18 130/60 100
04/17/25 07:30 04/17/25 07:30 04/17/25 07:30 04/17/25 07:30 04/17/25 07:30
Intake and Output
04/16/25 04/17/25 04/18/25
06:59 06:59 06:59
Intake Total 480 / 480 1140 / 1140
Output Total 1400 / 1400
Balance -920 / -920 1140 / 1140
SaO2 100
Nasal Cannula flow liters per 3
minute
Physical Exam
General: Respiratory Distress (negative), Comfortable, Chills (negative) and Sweats (negative)
HEENT: Normocephalic and Anicteric
Cardiovascular: Irregular Rhythm, Murmur (Systolic murmur, grade III/) and Peripheral Edema (negative)
Respiratory: Wheeze (negative), Crackles (negative), Rhonchi (negative) and Non-Labored Respirations
GI: Soft, Non Distended, Non Tender and Normal Bowel Sounds
Neurology: Awake, Alert, Oriented and Tremors (negative)
Skin: Warm, Dry, Cyanosis (negative) and Jaundice (negative)
Labs/Micro/Reports
Lab Data
04/17/25 06:55
04/17/25 06:55
Microbiology
04/15/25 13:52 Nasal Swab Influenza Types A & B (JAY) - Final
Negative for Influenza A & B, NAAT
Negative results must be combined with clinical observations
and patient history.
Nucleic Acid Amplification test (NAAT)performed on the
[employer] platform.
--- NOTE | 2025-04-17 10:31 | W.PN.CD ---
Today's Communication / Plan
-
-Takes lasix 20 mg daily at home; will increase Lasix to 40 mg, which should be new home regimen.
-Diurese with lasix 40mg IV BID.
Impression / Plan
-
84M with CAD (most recent PCI 07/2023), hypertension, dyslipidemia, paroxysmal atrial fibrillation on apixaban, COPD, and former smoker who presented to the emergency department with shortness of breath
Primary filer and sander: Dr. Bush
SOB, multifactorial
-Underlying lung disease and acute HFpEF.
HFpEF, acute on chronic:
-echo 11/2024: EF 55-60%, mild
-likely need to reset dry weight, as he is below previous dry weight
-Takes lasix 20 mg daily at home; will increase Lasix to 40 mg, which should be new home regimen.
-Diurese with lasix 40mg IV BID.
-Continue Farxiga and spironolactone
Paroxysmal atrial fibrillation--per outpatient notes, seems to be spending more time in A fib--burden on Zio 01/2025 was 44%
Atrial flutter, typical
-Continue metoprolol XL 12.5mg daily
-Continue apixaban 5mg bid
CAD
- Remains stable without chest pain
- Cardiac catheterization 07/2023 as below
- Continue medical management with statin, beta-solitario and apixaban (paroxysmal atrial fibrillation)
Aortic stenosis, mild, peak/mean 29.8/15.0 mmHg
Pulmonary hypertension, moderate, diuresis as above
HTN, chronic, stable, follow with diuresis
Data Reviewed:
[facility] 07/27/23:
Right dominant circulation with multiple prior PCI's in the mid RCA, RPL, mid/distal circumflex and large first diagonal,
PAPER CLEANER of the proximal LAD after the origin of the large diagonal, a 60-70% lesion in the proximal circumflex immediately before the origin of OM1
and a densely calcified, 90% ostial circumflex lesion, now status post successful orbital atherectomy and IVUS guided PCI of both circumflex lesions into the left main coronary artery
with reduction in both stenoses to 0%, maintaining ZACH-3 flow in the circumflex as well as in the jailed large diagonal.
Physical Exam
Vital Signs/Labs
Vital Signs
Temp Pulse Resp BP Pulse Ox
98.0 F 59 18 130/60 100
04/17/25 07:30 04/17/25 07:30 04/17/25 07:30 04/17/25 07:30 04/17/25 07:30
04/16/25 04/17/25 04/18/25
06:59 06:59 06:59
Actual Weight 75.353 kg
04/17/25 06:55
04/17/25 06:55
Magnesium 2.2 mg/dl (1.6-2.3) 04/17/25 06:55
04/15/25
13:52
Fgp-[id number]-Veznfirjqyo Pept 4300
LAB Results
04/15/25 04/17/25
13:52 06:55
Troponin I 0.024 0.031
Physical Exam
Constitutional: No acute distress and Comfortable
EENT: Anicteric
Cardiovascular: Pedal edema is absent, Rhythm/rate is irregular, Systolic murmur present (3/6) and S1S2 is normal
Respiratory: Respiratory effort normal and Lungs clear to auscul.
GI: Soft
Neuro/Psych: AO x 3
Other: Skin (Warm, dry, intact)
Data Reviewed
-
Date of Service: April 17, 2025
EKG: Tracing Personally Visualized and interpreted (Telemetry: A-fib)
Labs: Labs Reviewed by me
--- NOTE | 2025-04-17 10:45 | W.PN.HOSP.TC ---
Addendum entered and electronically signed by Yolanda De Leon MD 04/17/25 11:04:
DW RN
updated on the phone
Original Note:
Today's Communication/Plan
-
now on PO lasix
PT eval and hopeful for DC later today
Assessment / Plan
Assessment / Plan
HPI: 84 yo M with PMH COPD, HFpEF (diagnosed in 11/2024), Prx AF, HTN, CAD, p/w SOB and weakness for a few weeks.
Came to the ER due to progressive SOB and weakness.
Admitted to medication nonadherence and continues to smoke.
CT Chest:
1. 1.7 cm spiculated part-solid pulmonary nodule in the superior segment of the right lower lobe. Diagnostic possibilities are (1) right lower lobe lung cancer or (2) scarring.
2. Recurrent nodular pleural thickening in the posterolateral right hemithorax adjacent to the nodule extending into the adjacent right major fissure. Diagnostic possibilities are (1) pleural metastatic disease or (2) recurrent pleural
inflammation, infection, or scarring.
3. Mild centrilobular emphysema in the upper lobes.
4. Severe calcific atherosclerotic plaque in the coronary arteries and thoracic aorta.
5. Moderate cardiomegaly.
6. Mild pulmonary arterial hypertension.
7. Small hiatal hernia.
8. 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
A/P:
# Multifactorial dyspnea due to acute on chronic HFpEF and underlying lung disease/COPD
# Acute on chronic hypoxic resp failure
Placed on 4L NC, pt on 4L NC at night time EXCEPTIONAL STUDENT EDUCATION AIDE
Flu/COVID negative
# Acute on chronic HFpEF
Recent echo 11/2024: Normal biventricular size and systolic function. EF 55-60%. Mild aortic stenosis. Moderate pulmonary hypertension.
IV Lasix now at 40mg BID -> PO lasix 40 mg daily (new home regimen)
Cont EXCEPTIONAL STUDENT EDUCATION AIDE Toprol XL 12.5 daily, Lisinopril 5 mg daily, Spironolactone 12.5 mg daily
Cont EXCEPTIONAL STUDENT EDUCATION AIDE Dapagliflozin 10 mg daily.
Monitor daily weight, I's/O, BMP with diuresis
Card on board
# Incidental lung nodule RLL
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
Pulm and Onc consulted, recc outpt bronch for tissue biopsy of RLL spiculated pulmonary nodule and consider OP PET
# Elevated d dimer likely reactive
PE ruled out with CT Chest
BL LE US neg for DVT
# COPD on nocturnal oxygen 4L NC
# h/o Pulmonary fibrosis
# non-CO troponin elevation, suspect due to Acute HF
Trend troponin until peak
# Paroxysmal AF
# Atrial flutter, typical
Cont EXCEPTIONAL STUDENT EDUCATION AIDE Metoprolol XL and Apixaban
# HX CAD, stable
Cont medical management with statin, beta-solitario
# HX Aortic stenosis, mild
# Pulmonary hypertension, moderate
# Hypothyroidism
# Hyperlipidemia
# Carotid stenosis
DVT ppx: EXCEPTIONAL STUDENT EDUCATION AIDE Apixaban
Code: Full code
Dispo: PT eval
Anticipated Discharge: Today
Subjective/Interval History
-
Date of Service: April 17, 2025
Objective Data
-
Labs:
Laboratory Results
04/17/25
06:55
WBC 7.2
Hgb 10.8 L
Hct 33.8 L
Plt Count 151
Sodium 137
Potassium 3.9
Chloride 97 L
Carbon Dioxide 36 H
BUN 31 H
Creatinine 1.1
Glucose 95
Calcium 8.4
Vital Signs:
Vital Signs
Temp Pulse Resp BP Pulse Ox
36.7 C 59 18 130/60 100
04/17/25 07:30 04/17/25 07:30 04/17/25 07:30 04/17/25 07:30 04/17/25 07:30
I&O
04/16/25 04/17/25 04/18/25
06:59 06:59 06:59
Intake Total 480 / 480 1140 / 1140
Output Total 1400 / 1400
Balance -920 / -920 1140 / 1140
[2025-04-17 11:45] VITALS: BP 119/40
--- NOTE | 2025-04-17 12:22 | CM ---
Discharge home today
CM consulted for home care. Met w/ patient bedside, agreeable to [facility]. TT liaison to place referral
IMM verbally reviewed, copy provided, copy on chart
Son will transport
[facility]

Plan: Home w/ [facility]
[2025-04-17 12:47] VITALS: BP 138/47; PULSE 66; O2SAT 88
--- NOTE | 2025-04-17 12:54 | PTOTSP ---
Pt was fully dressed in clothes and shoes on my arrival, with O2 off. He is able to ambulate with steady gait. No skilled PT needs were identified. Pt needs education regarding O2 use as he stated he only uses it at night. Currently 88% on room air
at rest. PT will sign off.
--- NOTE | 2025-04-17 13:03 | VNURNOTE ---
Home Health Liaison met with patient at bedside to discuss [facility] nurse/therapy, visits, schedule and homebound status. Patient is agreeable and understands that visits at home will be 2-3 x per week to assess and teach medical management.
Patient is aware that [facility] will contact them for start of care within a week after discharge from . Provided contact number for [facility].
PM [facility] referral completed in [facility].
--- NOTE | 2025-04-17 14:58 | W.DCSUMMARY ---
Discharge Summary
Discharge Data
Date of Admission: 04/15/25
Date of Discharge: 04/17/25
Total time spent discharging patient (in min): 40
-
Pending Results: No
Hospital Course
Principal Diagnosis:
# Multifactorial dyspnea due to acute on chronic HFpEF and underlying lung disease/COPD
# Incidental lung nodule RLL
Chronic Diagnoses:�
# COPD on nocturnal oxygen 4L NC
# h/o Pulmonary fibrosis
# Paroxysmal AF / Atrial flutter
# HX CAD, stable
# HX Aortic stenosis, mild
# Pulmonary hypertension, moderate
# Hypothyroidism
# Hyperlipidemia
# Carotid stenosis
Consultations:�
Pulmonary
Oncology
Procedures:�
None
Clinical course:�
This is a 84 year old male with past medical history as stated above, who presented with shortness of breath and weakness ongoing for weeks.
He admitted to medication noncompliance and he continues to smoke.
Problem 1:
Multifactorial dyspnea due to acute on chronic HFpEF and underlying lung disease/COPD
He was placed on 4 L nasal cannula O2 support while in the hospital, and he can continue oxygen support following discharge. Patient has been using nocturnal oxygen at 4 L at home.
Problem 2:
Acute on chronic HFpEF.
His recent echo from 11/2024 showed: Normal biventricular size and systolic function. EF 55-60%. Mild aortic stenosis. Moderate pulmonary hypertension.
He was treated with IV Lasix while in the hospital, and was discharged with oral Lasix 40 mg daily (from 20 mg prior to admission)
He can continue with prior to admission Toprol XL 12.5 daily, Lisinopril 5 mg daily, and Dapagliflozin 10 mg daily.
Problem 3:
Incidental lung nodule RLL.
His CT chest showed:
1. 1.7 cm spiculated part-solid pulmonary nodule in the superior segment of the right lower lobe. Diagnostic possibilities are (1) right lower lobe lung cancer or (2) scarring.
2. Recurrent nodular pleural thickening in the posterolateral right hemithorax adjacent to the nodule extending into the adjacent right major fissure. Diagnostic possibilities are (1) pleural metastatic disease or (2) recurrent pleural
inflammation, infection, or scarring.
Pulmonary and oncology were consulted, and they recommended that the patient follow-up outpatient for bronchoscopy for tissue biopsy and consider PET scan outpatient.
As for the rest of his medical problems, they were stable during his hospital stay.
Discharge Plan
-
Patient Disposition: Home with Home Care
Discharge Diagnosis/Procedures: # Multifactorial dyspnea due to acute on chronic heart failure and underlying lung disease/COPD
# Acute on chronic hypoxic respiratory failure
Condition: Fair
Diet: As tolerated and Restrict fluids to 64 oz
Activity: As tolerated
Driving Restrictions: As prior to admission
Blood Work: BMP in 1 week, result to PCP
Instructions: *[facility] Heart Failure Instructions
Referrals:
Angelo Bush MD [Active, Cardiology] - in one to two weeks
UNKNOWN - PT DOES,NOT KNOW [Family Provider]
Additional Discharge Medication Instructions: Your lasix dose was increased to 40 mg daily
Prescriptions:
New
furosemide 40 mg Tablet
40 mg PO DAILY Qty: 30 0RF
metoprolol succinate 25 mg Tablet Extended Release 24 Hr
12.5 mg PO DAILY Qty: 30 0RF
Continued
lisinopril 5 mg Tablet
5 mg PO QPM
Eliquis 5 mg Tablet
5 mg PO BID
ezetimibe 10 mg Tablet
10 mg PO QPM
rosuvastatin 40 mg Tablet
40 mg PO DAILY
levothyroxine [Synthroid] 150 mcg Tablet
150 mcg PO NOON
Trelegy Ellipta 100-62.5-25 mcg Blister With Device
1 inh INHALATION R DAILY
albuterol sulfate 2.5 mg /3 mL (0.083 %) Solution For Nebulization
2.5 mg INHALATION R BID
budesonide 0.5 mg/2 mL Suspension For Nebulization
0.5 mg INHALATION R BID
azithromycin 250 mg Tablet
250 mg PO MOWEFR
aspirin 81 mg Tablet,Delayed Release (Dr/Ec)
81 mg PO MOWESA
acetaminophen [Tylenol Arthritis Pain] 650 mg Tablet Extended Release
1,300 mg PO [id number] PRN (Reason: mild pain)
meclizine 25 mg Tablet
25 mg PO DAILY PRN (Reason: dizziness)
albuterol sulfate 90 mcg/actuation Hfa Aerosol Inhaler
1 puff INHALATION R Q6HPRN PRN (Reason: sob)
xwbqbzmwdogr-vtecmkoz-mcrgau Tablet
1 tab PO DAILY
omega 3-hbn-onw-fish oil [Fish Oil] 1,200 (144-216) mg Capsule
1 cap PO DAILY
dapagliflozin propanediol [Farxiga] 10 mg Tablet
10 mg PO DAILY
pantoprazole 40 mg tablet,delayed release (DR/EC)
40 mg PO DAILY
Discontinued
furosemide 20 mg tablet
20 mg PO QPM
Discharge Orders:
Discharge Patient (As Directed); Ordered 04/17/25
Ordered By: Yolanda De Leon
Discharge Date and Time
Discharge Date/Time: 04/17/25 13:41
Print Language: URDU
== END 2025-04-17 13:41 | disposition home health service (06) | DRG 291 ==
LOC: 3 WEST ACU 21:01
PROVIDERS: Emergency Medicine; ADMITTING PHYSICIAN Internal Medicine; ATTENDING PHYSICIAN Internal Medicine; CONSULT PHYSICIAN Internal Medicine; CONSULT PHYSICIAN Internal Medicine Critical Care Medicine; CONSULT PHYSICIAN Internal Medicine Hematology & Oncology; EMERGENCY PHYSICIAN Emergency Medicine
DX: I11.0 Hypertensive heart disease with heart failure (principal); I50.33 Acute on chronic diastolic (congestive) heart failure; J96.21 Acute and chronic respiratory failure with hypoxia; I48.3 Typical atrial flutter; J43.2 Centrilobular emphysema; J84.10 Pulmonary fibrosis, unspecified; I48.0 Paroxysmal atrial fibrillation; I25.10 Atherosclerotic heart disease of native coronary artery without angina pectoris; Z95.5 Presence of coronary angioplasty implant and graft; E03.9 Hypothyroidism, unspecified; N40.0 Benign prostatic hyperplasia without lower urinary tract symptoms; I65.29 Occlusion and stenosis of unspecified carotid artery; Z91.148 Patient's other noncompliance with medication regimen for other reason; E78.00 Pure hypercholesterolemia, unspecified; F17.200 Nicotine dependence, unspecified, uncomplicated; Z79.899 Other long term (current) drug therapy; Z79.01 Long term (current) use of anticoagulants; Z79.890 Hormone replacement therapy; I27.21 Secondary pulmonary arterial hypertension; D53.9 Nutritional anemia, unspecified; D75.89 Other specified diseases of blood and blood-forming organs; Z79.51 Long term (current) use of inhaled steroids; Z79.84 Long term (current) use of oral hypoglycemic drugs; Z80.3 Family history of malignant neoplasm of breast; Z99.81 Dependence on supplemental oxygen; Z11.52 Encounter for screening for COVID-19
CPT/HCPCS: 71046; 71275; 80048; 80053; 82607; 82728; 82746; 83540; 83550; 83735; 83880; 84484; 85025; 85027; 85045; 85379; 87502; 87811; 93005; 93970; 94640; 96374; 96375; 97162; 99285; Q9967